=== PATIENT | male | born 1955 | race Caucasian/White ===

== ENCOUNTER 2016-06-04 16:06 | Observation (INO) ==
[2016-06-04] MEDS ORDERED: Nitroglycerin 1 INCH/GM PACKET TP ONE (16:21)
[2016-06-04 16:34] LABS: Basophils # 0.1 K/mcL (0.0-0.2); Basophils % 0.6 %; Eosinophils # 0.7 K/mcL (0.0-0.6); Hematocrit 54.7 % (37.5-50.1); Hemoglobin 19.3 g/dL (12.9-16.9); Immature Granulocytes % 0.6 % (0-4); Lymphocytes # 6.4 K/mcL (0.6-4.6); Lymphocytes % 44.7 %; Mean Corpuscular HGB Conc 35.3 g/dL (31.6-35.5); Mean Corpuscular Hemoglobin 30.1 pg (28.0-33.3); Mean Corpuscular Volume 85.2 fL (83.0-100.0); Mean Platelet Volume 10.3 fL (9.4-12.4); Monocytes % 7.2 %; Platelet Count 177 K/mcL (140-400); Red Blood Count 6.42 M/mcL (4.19-5.50); Red Cell Distribution Width 13.2 % (11.5-14.5); Segmented Neutrophils % 41.9 %
[2016-06-04 16:39] LABS: INR 1.2; Prothrombin Time 12.8 Seconds (9.4-12.1)
[2016-06-04 16:41] LABS: Activated Partial Thrombo Time 35.4 Seconds (26.0-36.0)
[2016-06-04 16:47] LABS: BUN/Creatinine Ratio 14 (6-26); Blood Urea Nitrogen 16 mg/dL (8-26); Calcium 9.7 mg/dL (8.6-10.8); Carbon Dioxide 23 mEq/L (19-29); Chloride 104 mEq/L (98-109); Glucose 97 mg/dL (70-99); Osmolality,Calculated 291 (280-300); Potassium 3.8 mEq/L (3.5-4.5); Sodium 140 mEq/L (136-145); eGFR For African Americans > 60 (> 60); eGFR For Non-African Americans > 60 (> 60)
[2016-06-04] MEDS ORDERED: *HR* Enoxaparin 120 MG/0.8 ML SYRINGE SQ STA (17:40)
[2016-06-04] MEDS ORDERED: Acetaminophen 325 MG TABLET PO PRN (20:48)
[2016-06-04] MEDS ORDERED: Naloxone 0.4 MG/ML INJ IVP PRN (20:48)
[2016-06-04] MEDS ORDERED: *HR* Morphine 2 MG/ML SYRINGE IVP PRN (20:48)
[2016-06-04] MEDS ORDERED: Nitroglycerin 0.4 MG TAB.SUBL SL PRN (20:57)
--- NOTE | 2016-06-04 20:59 | Internal Med History&Physical ---
Date of Encounter: 06/04/16 Time of Encounter: 20:59 Assessment and Plan (1) Unstable angina Current visit: Yes Status: Acute Suspect unstable angina / ACS. Treat with aspirin, enoxaparin, continue beta elli. Monitor on telemetry. Check lipid panel. Cardiology consultation. (2) Hypertension Current visit: Yes Status: Chronic Continue Metoprolol Qualifiers: Hypertension type: essential hypertension Qualified Code(s): I10 - Essential (primary) hypertension (3) Polycythemia Current visit: Yes Status: Acute Possibly due to secondary causes like ROWDY/hypoxemia versus polycythemia rubra vera. Pt is not a smoker. Repeat H&H. Check for serum erythropoitin and JAK2 mutation. 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 Consult scalder for further advice. (5) Leucocytosis Current visit: Yes Status: Acute Will repeat CBC for WBC count. No obvious source of infection. Qualifiers: Leukocytosis type: unspecified Qualified Code(s): D72.829 - Elevated white blood cell count, unspecified Internal Medicine - H&P: HPI Chief complaint: Chest pains Admitted From: Home Plans for Post Hospital Care: Home History of present illness: Mr. Gardner is a 60 year old male with PMH significant for HTN, h/o palpitations and EKG abnormalities noted about 20 years ago (apparently pt was told it was inherited), hiatus hernia and GERD - presents to the ER, with several days h/o intermittent burning sensation (thought he had burning in the breathing tubes), in the upper chest. Initially was noted after meal. Subsequently he had become more frequent and severe burning sensation with exertion, but also had symptoms at rest. Severity, 8/10. Pain last for upto 5 minutes. He had some numbness in the left upper extremity and neck, associated with chest pain. Also thinks he may have some palpitations. Denies shortness of breath, cough, fever, chills, nausea, vomiting, sweating. He denies abdominal pain, urinary or bowel symptoms. He was recently at his PCP's office who was planning to refer him to scalder, and advised him to go to the ER, if symptoms return. He was evaluated in the ER and was given aspirin, enoxaparin, nitro paste and admitted to the hospitalist service for further w/u. Pt was pain free at the time of my evaluation. Past Med Surg Social Fam HX - Past Medical History Medical history: hypertension, other Psychiatric history: no psych history - Social History Smoking Status: Never smoker Smokeless Tobacco Status: No Alcohol use: none Drug use: none - Family History Mother Living Status: Cause of : alheimzers Hx Family Cardiac Disorders: Yes (Angina) Father Living Status: Cause of : head injury/ brain aneurysm Internal Medicine - H&P: Meds Metoprolol [Lopressor] 50 mg PO BID 06/04/16 [History] Allergies No Known Allergies Allergy (Verified 06/04/16 16:29) All Systems PM: A 10-system review of systems was performed and is negative for pertinent findings except as documented above in the HPI. - Constitutional Vitals: Temp Pulse Resp BP Pulse Ox 98 F 73 16 120/69 93 L 06/04/16 19:11 06/04/16 19:11 06/04/16 19:11 06/04/16 19:12 06/04/16 19:11 Exam: General: Not in acute distress at the time of my evaluation HEENT: No conjunctival palor or scleral incterus Neck: No obvious swellings Lungs: Clear to auscultation Cardiac: Irregular rhythm. No significant murmurs. No carotid bruit Abdomen: Obese, non tender. Bowel sounds present Neurological: Alert and oriented x 3. No gross neurological deficits Psychiatric: Not aggressive or agitated. No delusions or hallucinations Muskuloskeletal: B/L trace LE leg edema noted. Skin: No generalized rash Internal Med - H&P Results - Labs CBC & Chem 7: 06/04/16 16:15 06/04/16 16:15 - Impressions ITS Impressions Chest X-Ray 06/04/16 16:21 IMPRESSION: No acute cardiopulmonary process. D/ / 06/04/2016 17:03:18 Joe Russo MD / Shona Daniel Interpreting Provider: Joe Russo MD - VTE Reasons for not Prescribing Prophylaxis: Not indicated-Anticoagulated or INR therapeutic
--- NOTE | 2016-06-04 22:02 | Emergency Department Note ---
Disposition Clinical Impression: Chest pain Qualifiers: Chest pain type: unspecified Qualified Code(s): R07.9 - Chest pain, unspecified Disposition: Admitted As Inpatient Condition: Good General Adult HPI - General Chief complaint: ED Chest Pain Stated complaint: Chest Pain Time Seen by Provider: 06/04/16 16:11 Source: patient, family Limitations: no limitations Nursing Notes Reviewed: Yes Vital Signs Reviewed: Yes - History of Present Illness HPI Narrative: 60-year-old male who presents with concern for chest pain. His pain has been intermittent over the course of 3 days. He admits the pain worsens with ambulation and subsides with rest. He does not history of hiatal hernia and has some nonspecific epigastric complaints. He has had no vomiting, diarrhea, hematemesis, hematochezia. He denies fever, chills, night sweats. He has no history of having cardiac catheterization or stress testing done Pain Scale: 0 - Related Data Home Medications Medication Instructions Recorded Confirmed Metoprolol [Lopressor] 50 mg PO BID 06/04/16 06/04/16 Previous Rx's Medication Instructions Recorded Aspirin 81 mg PO DAILY #30 tab.chew 06/06/16 Atorvastatin [Lipitor] 80 mg PO HS #60 tablet 06/06/16 Clopidogrel [Plavix] 75 mg PO DAILY #30 tablet 06/06/16 Nitroglycerin 0.4 mg SL Q5MIN PRN #7 tab.subl 06/06/16 Allergies Allergy/AdvReac Type Severity Reaction Status Date / Time No Known Allergies Allergy Verified 06/04/16 16:29 All systems ED: reviewed and negative except as stated. Past Medical History - Past Medical History Medical history: Reports: hypertension, other Surgical history: Reports: other Psychiatric history: Reports: no psych history - Social History Smoking Status: Never smoker Smokeless Tobacco Status: No Alcohol use: Reports: none Drug use: Reports: none Physical Exam No acute distress TMs are clear bilaterally, extraocular muscle movements are normal, no scleral icterus noted Cardio vascular exam shows regular rate and rhythm no murmur rub or gallop Pulmonary exam shows no overt respiratory distress, tachypnea, rales, rhonchi, wheezing Abdominal exam shows a soft nontender abdomen with no signs of peritonitis Extremities show +2 peripheral pulses 4 she remedies. Neurologic exam is without neurological deficit - General Limitations: no limitations General appearance: alert Course Vital Signs Temperature 98.9 F 06/04/16 16:10 Pulse Rate 80 06/04/16 16:10 Respiratory Rate 16 06/04/16 16:10 Blood Pressure 151/115 06/04/16 16:10 O2 Sat by Pulse Oximetry 96 06/04/16 16:10 Temperature 97.8 F 06/06/16 15:20 Pulse Rate 72 06/06/16 15:20 Respiratory Rate 14 06/06/16 15:20 Blood Pressure 157/90 06/06/16 15:20 O2 Sat by Pulse Oximetry 97 06/06/16 15:20 Oxygen Delivery Oxygen Delivery Room Air Medical Decision Making - MDM Narrative Medical decision making narrative: This is a male patient presents with typical chest pain with concern for angina versus unstable angina and possible ACS. Aspirin was administered by the patient prior to arrival in the emergency department. Nitroglycerin paste applied as a patient was pain-free on arrival however his pain does return with ambulation. His cardiac biomarkers were detectable however within normal limits and as such I do believe these could be early elevation and he was anticoagulated with Lovenox given his normal creatinine. I discussed this choice with the on-call hospitalist who agreed. We will admit to telemetry, cardiac consultation, returning of cardiac biomarkers. Admitted in stable condition. EKG nondiagnostic at time of admission. - Medical Records Medical records reviewed: Yes I reviewed the patient's medical records. - Lab Data Lab results reviewed: Yes I reviewed the patient's lab results. Result diagrams: 06/06/16 05:06 06/06/16 05:06 Lab Results 06/04/16 06/04/16 06/04/16 Range/Units 16:15 16:15 16:15 WBC 14.2 H (4.3-11.1) K/mcL RBC 6.42 H (4.19-5.50) M/mcL Hgb 19.3 H (12.9-16.9) g/dL Hct 54.7 H (37.5-50.1) % MCV 85.2 (83.0-100.0) fL MCH 30.1 (28.0-33.3) pg MCHC 35.3 (31.6-35.5) g/dL RDW 13.2 (11.5-14.5) % Plt Count 177 (140-400) K/mcL MPV 10.3 (9.4-12.4) fL Immature Gran % 0.6 (0-4) % Seg Neutrophils % 41.9 % Lymphocytes % 44.7 % Monocytes % 7.2 % Eosinophils % 5.0 % Basophils % 0.6 % Neutrophils # 6.0 (1.6-8.9) K/mcL Lymphocytes # 6.4 H (0.6-4.6) K/mcL Monocytes # 1.0 (0.0-1.3) K/mcL Eosinophils # 0.7 H (0.0-0.6) K/mcL Basophils # 0.1 (0.0-0.2) K/mcL PT 12.8 H (9.4-12.1) Seconds INR 1.2 APTT 35.4 (26.0-36.0) Seconds Sodium (136-145) mEq/L Potassium (3.5-4.5) mEq/L Chloride (98-109) mEq/L Carbon Dioxide (19-29) mEq/L BUN (8-26) mg/dL Creatinine (0.72-1.25) mg/dL Est GFR ( Amer) (> 60) Est GFR (Non-Af Amer) (> 60) BUN/Creatinine Ratio (6-26) Glucose (70-99) mg/dL Calculated Osmolality (280-300) Calcium (8.6-10.8) mg/dL Troponin I (0-0.03) ng/mL B-Natriuretic Peptide 39 (0-100) pg/mL 06/04/16 06/04/16 Range/Units 16:15 16:15 WBC (4.3-11.1) K/mcL RBC (4.19-5.50) M/mcL Hgb (12.9-16.9) g/dL Hct (37.5-50.1) % MCV (83.0-100.0) fL MCH (28.0-33.3) pg MCHC (31.6-35.5) g/dL RDW (11.5-14.5) % Plt Count (140-400) K/mcL MPV (9.4-12.4) fL Immature Gran % (0-4) % Seg Neutrophils % % Lymphocytes % % Monocytes % % Eosinophils % % Basophils % % Neutrophils # (1.6-8.9) K/mcL Lymphocytes # (0.6-4.6) K/mcL Monocytes # (0.0-1.3) K/mcL Eosinophils # (0.0-0.6) K/mcL Basophils # (0.0-0.2) K/mcL PT (9.4-12.1) Seconds INR APTT (26.0-36.0) Seconds Sodium 140 (136-145) mEq/L Potassium 3.8 (3.5-4.5) mEq/L Chloride 104 (98-109) mEq/L Carbon Dioxide 23 (19-29) mEq/L BUN 16 (8-26) mg/dL Creatinine 1.14 (0.72-1.25) mg/dL Est GFR ( Amer) > 60 (> 60) Est GFR (Non-Af Amer) > 60 (> 60) BUN/Creatinine Ratio 14 (6-26) Glucose 97 (70-99) mg/dL Calculated Osmolality 291 (280-300) Calcium 9.7 (8.6-10.8) mg/dL Troponin I 0.03 (0-0.03) ng/mL B-Natriuretic Peptide (0-100) pg/mL - Radiology Data Radiology results reviewed: Yes I reviewed the patient's radiology results. - EKG Data EKG #1 EKG attestation: Yes I reviewed and interpreted this EKG. EKG results narrative: Normal sinus rhythm, normal axis, normal intervals, no signs of acute ST segment changes and occasional premature ventricular contractions
[2016-06-05 05:56] LABS: Chol/HDL Ratio 6.7 (0-4.9)
[2016-06-05] MEDS ORDERED: *HR* Enoxaparin 120 MG/0.8 ML SYRINGE SQ SCH (07:00)
[2016-06-05] MEDS ORDERED: Aspirin 325 MG TABLET PO SCH (09:00)
[2016-06-05 09:39] LABS: Basophils # 0.1 K/mcL (0.0-0.2); Basophils % 0.7 %; Eosinophils # 0.5 K/mcL (0.0-0.6); Eosinophils % 4.1 %; Hematocrit 53.8 % (37.5-50.1); Hemoglobin 18.4 g/dL (12.9-16.9); Immature Granulocytes % 0.5 % (0-4); Immature Platelets 6.6 % (1.1-6.1); Lymphocytes # 4.3 K/mcL (0.6-4.6); Lymphocytes % 37.9 %; Mean Corpuscular HGB Conc 34.2 g/dL (31.6-35.5); Mean Corpuscular Hemoglobin 29.6 pg (28.0-33.3); Mean Corpuscular Volume 86.5 fL (83.0-100.0); Mean Platelet Volume 10.4 fL (9.4-12.4); Monocytes # 0.9 K/mcL (0.0-1.3); Monocytes % 8.3 %; Neutrophils # 5.5 K/mcL (1.6-8.9); Platelet Count 174 K/mcL (140-400); Red Blood Count 6.22 M/mcL (4.19-5.50); Red Cell Distribution Width 13.1 % (11.5-14.5); Segmented Neutrophils % 48.5 %
[2016-06-05 09:54] LABS: BUN/Creatinine Ratio 14 (6-26); Blood Urea Nitrogen 16 mg/dL (8-26); Calcium 9.2 mg/dL (8.6-10.8); Carbon Dioxide 26 mEq/L (19-29); Chloride 106 mEq/L (98-109); Glucose 87 mg/dL (70-99); Magnesium 2.2 mg/dL (1.6-2.6); Osmolality,Calculated 297 (280-300); Potassium 4.1 mEq/L (3.5-4.5); Sodium 143 mEq/L (136-145); eGFR For African Americans > 60 (> 60); eGFR For Non-African Americans > 60 (> 60)
[2016-06-05] MEDS ORDERED: Regadenoson 0.4 MG/5 ML SYRINGE IVP ONE (11:56)
--- NOTE | 2016-06-05 14:49 | Cardiology Consult Note ---
Date of Encounter: 06/05/16 Time of Encounter: 14:46 Assessment and Plan (1) Abnormal stress test Current Visit: Yes Status: Acute Typical chest pain symptoms. Troponin negative x 3. Intermittent chest pain over the last year. Recommended for stres in the past but preferred medical management. Stress test abnormal with defect in the anterior/septal territory suggestive of ischemia, also positive for TID. He also had significant hypotension with Lexiscan. [facility] Indications, risks, benefits, and alternatives discussed. Recommend aspirin, statin,and beta-elli. (2) Unstable angina Current Visit: Yes Status: Acute Typical chest pain symptoms. Discussion w patient/family: The assessment and plan as outlined above was discussed with the patient and/or family members who expressed understanding and agreement. All questions were answered. Thank you for involving us in the care of your patient. Please call with any questions. History of Present Illness Consult date: 06/05/16 Requesting physician: Sarita Mercedes Consult reason: Abnormal stress Chief complaint: Chest pain History of present illness: Mr. Gardner is a 60 year old male with a history of SVT and hypertension. He presents with intermittent chest pain over the last several weeks. He was on vacation when he noted midsternal chest discomfort with walking. His pain improved with rest. His chest pain went away for a while. Yesterday his chest pain returned and was associated with left arm and neck tingling. He denies any shortness of breath. Admits to frequent palpitations. He denies previous history of CAD. He has never undergone left heart catheterization. He underwent a stress test today that shows significant defect in the LAD territory. Past Med Surg Social Fam HX - Past Medical History Medical history: hypertension, SVT (Short runs seen on previous holter.), other Psychiatric history: no psych history - Past Surgical History Surgical History: other - Social History Smoking Status: Never smoker Smokeless Tobacco Status: No Alcohol use: none Drug use: none - Family History Mother Living Status: Cause of : alheimzers Hx Family Cardiac Disorders: Yes (Angina) Father Living Status: Cause of : head injury/ brain aneurysm Medications and Allergies Metoprolol [Lopressor] 50 mg PO BID 06/04/16 [History] Allergies No Known Allergies Allergy (Verified 06/04/16 16:29) All Systems Review: A 10-system review of systems was performed and is negative for pertinent findings except as documented above in the HPI. Physical Examination Vital Signs, Last 4 Hours Temp Pulse Resp BP Pulse Ox 06/05/16 11:04 98.6 F 79 15 148/89 93 L General: Conversant, No Apparent Distress HEENT: Atraumatic, Normocephaly, Mucus Membranes Moist Neck: No JVD, Normal carotid pulses Cardiac: Reg Rate and Rhythm, Normal S1 and S2, No Murmur Lungs: Normal Breath Sounds, No Wheeze, Rales, Rhonchi Neuro: Alert and responsive, No focal deficits noted Abdomen: Soft, Non-Tender Skin: No rashes noted on visualized skin Musculoskeletal: No Chest Wall Tenderness Extremities: No Clubbing, No Cyanosis, No Edema, Normal Pulses Results 06/05/16 09:14 06/05/16 09:14 Lab Results 06/04/16 06/05/16 06/05/16 21:46 03:48 09:14 WBC Hgb Hct Plt Count Sodium Potassium Chloride Carbon Dioxide BUN Creatinine Glucose Calcium Magnesium Troponin I 0.03 0.03 0.02 06/05/16 06/05/16 09:14 09:14 WBC 11.4 H Hgb 18.4 H Hct 53.8 H Plt Count 174 Sodium 143 Potassium 4.1 Chloride 106 Carbon Dioxide 26 BUN 16 Creatinine 1.15 Glucose 87 Calcium 9.2 Magnesium 2.2 Troponin I - Imaging and Cardiology Stress Test: report reviewed - EKG Interpretation EKG results cardiology: personally reviewed (Sr with frequent PAC.) Consult Discharge Plan - Plan Referrals: Elizabeth Ho, [employer] [Primary Care Provider] -
--- NOTE | 2016-06-05 14:56 | Nuclear Medicine Stress Report ---
Regadenoson Nuclear Stress Name: Saurav Gardner Date of Study: 06/05/2016 Date: 1955 Ht: 71.0 in Medical Record#: [id number] Age: 60 Wt: 240.0 lb Gender: Male Order #: [id number] Location: [facility] Room: [facility] Supervising Provider: Curtis Mosley CNP Reading Physician: Zoltan Chambers MD, [facility] WITH [facility] Ordering Physician: Sarita Mercedes MD Primary Care Physician: Elizabeth Ho CNP Stress Technologist: Presley Bhatia GEODETIC TECHNICIAN, [facility] Inspector Boiler: Ubaldo Keane Indications: Chest Pain Impression: Frequent PACs noted prior to exam beginning, during stress, and in recovery. Non-specific ST \T\ T wave changes were noted with regadenoson. No ECG changes diagnostic of ischemia. The patient demonstrated a hypotensive blood pressure response to regadenoson (BP 60/40). Patient was given 500 mL of IV fluids. BP increased to 90/58. Gated LVEF = 61%. There is a medium-large sized, moderate-severe intensity, reversible perfusion defect involving the mid-apical anterior wall, mid anteroseptum, apical septum, and apex. Findings are consistent with moderate-severe LAD territory ischemia. There is mild transient ischemic dilatation, which can be seen in the setting of 3-vessel coronary artery disease. Abnormal findings were discussed with the ordering physician. History: Hypertension Stress Test Summary: Stress Test Type: Pharmacologic Regadenoson 0.4mg/5ml given IV Baseline Information: Initial Heart Rate: 82 Blood Pressure: 122/82 Stress Information: Test Terminated Due to (primary): As per protocol Maximum Blood Pressure: 104/70 Maximum Heart Rate: 113 Percent Maximum Heart Rate Achieved: 71 Double Product: 11334 Symptoms: Shortness of breath, Dizziness Nuclear Summary: SPECT myocardial perfusion imaging using Tc99m Sestamibi given intravenously was performed at rest and following cardiac stress testing. The resting images were obtained following initial dose of 10.7 mCi. Following stress an additional dose of 32.2 mCi was given at peak exercise or 30 seconds post regadenoson infusion. Medication Given: Time Medication Dose Units Route 12:45 NaCl 0.9% 500 ml Intravenous Findings: Stress Note * Resting ECG demonstrated sinus rhythm with short MT interval, PACs, non-specific ST-T wave abnormality. * Frequent PACs noted prior to exam beginning, during stress, and in recovery. * Patient had no chest pain during stress. * Non-specific ST \T\ T wave changes were noted with regadenoson. No ECG changes diagnostic of ischemia. Hemodynamic responses * The patient demonstrated a hypotensive blood pressure response to regadenoson (BP 60/40). Patient was given 500 mL of IV fluids. BP increased to 90/58. Study Quality * Study quality is good. Gated EF % * Gated LVEF = 61%. Left Ventricle * The left ventricle is not dilated. * Normal Segmental Perfusion in rest. * There is a medium-large sized, moderate-severe intensity, reversible perfusion defect involving the mid-apical anterior wall, mid anteroseptum, apical septum, and apex. * Findings are consistent with moderate-severe LAD territory ischemia. TID * There is mild transient ischemic dilatation, which can be seen in the setting of 3-vessel coronary artery disease. Updated by Zoltan Chambers MD, FACC on 06/05/2016 2:49:50 PM electronically signed on 06/05/2016 2:51:03 PM with status of Final
--- NOTE | 2016-06-05 15:30 | Pre-Sedation Evaluation ---
Pre-sedation evaluation - Pre-sedation checklist Date of procedure: 06/05/16 Procedure: [facility] Recent Vitals: Last Vital Signs Temp 98.6 F 06/05/16 11:04 Pulse 79 06/05/16 11:04 Resp 15 06/05/16 11:04 BP 148/89 06/05/16 11:04 Pulse Ox 93 L 06/05/16 11:04 H&P (including ROS) documented in medical record: Yes Previous reaction to sedatives/anesthetics: No Dietary Status: NPO after Midnight Airway Assessment: Patient can open mouth completely, TMJ function normal, Micrognathia (under-bite, receding chin) absent, Neck with adequate range of motion Dentition: No loose teeth or bridges Possible difficult airway: No ASA Classification *see protocol: CLASS II-Mild systemic disease Plan of Care: Pt appropriate candidate for procedure/moderate/conscious sedation , Risks/benefits of procedure/sedation discussed w/ patient/family
[2016-06-05] MEDS ORDERED: *HR* FentaNYL (PF) 100 MCG/2 ML VIAL ONE (15:32)
[2016-06-05] MEDS ORDERED: Heparin 1,000 UNITS/500 mL NS 500 ML ONE (15:33)
[2016-06-05] MEDS ORDERED: Nitroglycerin 1,000 MCG/10 ML VIAL IV ONE (15:33)
[2016-06-05] MEDS ORDERED: *HR* Midazolam HCl 5 MG/5 ML VIAL IVP ONE (15:33)
[2016-06-05] MEDS ORDERED: 0.9 % Sodium Chloride 1,000 ML ONE (15:33)
[2016-06-05] MEDS ORDERED: *HR* Heparin 10,000 UNIT/10 ML VIAL ONE (15:33)
[2016-06-05] MEDS ORDERED: *HR* Bivalirudin 250 MG VIAL IVC ONE ×2 (16:20→16:43)
[2016-06-05] MEDS ORDERED: *HR* Ticagrelor 90 MG TABLET ONE (16:46)
--- NOTE | 2016-06-05 17:09 | Invasive Diagnostic Lab Proc ---
Name: Saurav Gardner Date of Study: 06/05/2016 Date: 1955 Ht: 70.9in Medical Record#: [id number] Age: 60 Wt: 240.30lb Gender: Male BSA: 2.28 Order #: [id number] BMI: 33.64 Physicians Procedure Physician: Angelita Mendez MD, FACC Referring MD: Elizabeth Ho CNP Referring MD: Staff Name Position Time In Johnathan Hough RN Monitor 04:03 PM Lotus Lu RT (R) Scrub 04:03 PM Mali Plata RN Devops Solutions Architect 04:03 PM Indications Indication Abnormal Test - Stress Procedures Performed Procedure L HRT ARTERY/VENTRICLE ANGIO PRQ CARD AUGUSTA STENT W/ANGIO 1 VSL PRQ CARD BM STENT W/ANGIO 1 VSL Pre-Procedure Checklist Informed consent is complete signed and on chart. H\\T\\P is on chart. ID band is on and ID verified with patient. Patient NPO for procedure The procedure was described for the patient and questions were answered. Blood Pressure: 148/89 ECG is on chart. Rhythm: NSR Plan of Care Patient will tolerate the procedure without complications. Adequate level of comfort will be maintained. Hemodynamics will remain stable Patient will recover from procedure without complications. Respiratory function will be maintained. Cardiac rhythm will remain stable. Patient temperature will be maintained. Patient and/or family have verbalized understanding of the procedure. Patient Education Chief Complaint/Reason for Test: Cardiac Cath Developmental Category: Adult (18-64 years) Developmentally Appropriate for Age: Yes Learning Barriers: None Education Needs: Procedure Education Method: Verbal Information Taught: Cardiac Cath Educational Evaluation: Able to repeat information Intravenous Access Time IV Size Location DC'd Fluid/Drip Rate Units RN 03:39 PM 18g 1 05/12" Patent On Arrival Lt Antecubital 0.9NaCl 25 ml/hr Johnathan Hough RN Allergies No Known Allergies Vital Signs Time BP (mmHg) HR (bpm) O2 Sat. RR (bpm) LOC 03:37 PM 148 / 89 79 93 % 15 5 = Fully awake and oriented or at pre-proc level 04:05 PM / % 5 = Fully awake and oriented or at pre-proc level 04:05 PM / % 5 = Fully awake and oriented or at pre-proc level 04:20 PM / % 5 = Fully awake and oriented or at pre-proc level 04:35 PM / % 5 = Fully awake and oriented or at pre-proc level 04:01 PM 164 / 116 86 100 % 1 04:06 PM 143 / 97 69 98 % 13 04:11 PM 142 / 98 68 95 % 23 04:16 PM 141 / 91 87 95 % 21 04:21 PM 120 / 93 80 96 % 22 04:26 PM 132 / 85 70 96 % 21 04:31 PM 133 / 86 65 96 % 20 04:37 PM 137 / 89 71 97 % 14 04:42 PM 147 / 91 63 98 % 20 04:46 PM 141 / 86 72 98 % 15 04:51 PM 128 / 85 72 98 % Procedural Medications Time Medication Dose Units Method Given By 04:04 PM Oxygen 2 L/min nasal cannula aMli Plata RN 04:00 PM Versed 2 mg Intravenous Mali Plata RN 04:00 PM Fentanyl 50 mcg Intravenous Mali Plata RN 04:09 PM Versed 1 mg Intravenous Mali Plata RN 04:09 PM Fentanyl 25 mcg Intravenous Mali Plata RN 04:10 PM Lidocaine 2% 15 ml Subcutaneous Angelita Mendez MD, FACC 04:16 PM Angiomax 0.75mg/kg bolus: 16.5 ml Intravenous Mali Plata RN 04:17 PM Angiomax 1.75mg/kg/hr: 38.5 ml/hr Intravenous Mali Plata RN 04:25 PM Nitroglycerin 200 mcg Intracoronary Angelita Mendez MD, FACC 04:26 PM Nitroglycerin 200 mcg Intracoronary Angelita Mendez MD, FACC 04:41 PM Nitroglycerin 200 mcg Intracoronary Angelita Mendez MD, FACC 04:48 PM Reopro Bolus: 13.6 ml Intravenous Mali Plata RN 04:59 PM Brilinta 180 mg Orally Mali Plata RN ASA Classification: CLASS II- Mild systemic disease (i.e. well-controlled diabetes, hypertension, asthma, cigarette smoking) Anjali Score Preprocedure Postprocedure Activity 2- Moves 4 extremities sustained head lift Activity Circulation 2- SBP +/= 20 points of pre-anesthetic level Circulation Consciousness 2- Awake and alert oriented x 3 Consciousness O2 Saturation 2- Able to maintain O2 satruation of 92% on room air O2 Saturation Respiratory 2- Able to deep breathe and cough well Respiratory Total Score 10 Total Score Contrast Agent: Isovue Diagnostic Contrast: 181 ml Total Contrast: 181 ml Fluoro Dose: 1302 mGy Procedure Log Time Note Enter By 03:36 PM CathStat 04:00 PM Pt arrived to director of cath lab 2 at 16:00 [facility] 04:00 PM Augusto and radha [facility] 04:00 PM Sign in performed according to hospital policy. [facility] 04:00 PM Procedure start 16:00 csmith 04:00 PM Case Start 04:00 PM Vitals capture started with the following parameters, Patient=Adult, Interval=5 min, Initial Wquwgeul=805 mmHg, Deflation Rate=5 mmHg, Cuff placed on Right Arm 04:01 PM HR=86 bpm, KVDW=149/116 mmhg, PkC9=342.0 %, Resp=1 B/min, Comment=nsr 04:03 PM Johnathan Hough RN Position: Monitor Time in: 16:03 [facility] 04:03 PM Lotus Lu (R) Position: Scrub Time in: 16:03 [facility] 04:04 PM Mali Plata RN Position: Devops Solutions Architect Time in: 16:03 [facility] 04:04 PM Patient charges- Angio tray pack, Navilyst 3mm J, Pulse Oximetry and ACIST tubing and transducer csmith 04:04 PM Hair removed from procedure site in holding area using clippers. Bilateral groin prepped with Chloraprep by Lotus Lu RT (R) then patient draped. Skin intact. [facility] 04:04 PM Time: 16:04 Oxygen on at 2 L/min per nasal cannula by Mali Plata RN [facility] 04:04 PM Time: 16:00 Versed 2 mg Intravenous Given by Mali Plata RN [facility] 04:04 PM Time: 16:00 Fentanyl 50 mcg Intravenous Given by Mali Plata RN [facility] 04:05 PM Time: 16:05 Patient comfortable and pain free: Yes [facility] 04:05 PM Time: 16:05LOC: 5 = Fully awake and oriented or at pre-proc level [facility] 04:06 PM HR=69 bpm, ZMWO=751/97 mmhg, SpO2=98.0 %, Resp=13 B/min, Comment=nsr 04:07 PM ASA Class CLASS II- Mild systemic disease (i.e. well-controlled diabetes, hypertension, asthma, cigarette smoking) [facility] 04:08 PM Pressure channel 1 zeroed. 04:09 PM Time out performed according to hospital policy csmith 04:09 PM Time: 16:09 Versed 1 mg Intravenous Given by Mali Plata [facility] 04:09 PM Time: 16:09 Fentanyl 25 mcg Intravenous Given by Mali Plata RN csmith 04:10 PM Pressure channel 1 zeroed. 04:10 PM Time: 16:10 15 ml Lidocaine 2% to right groin Subcutaneous Given by Angelita Mendez MD, [facility] csmith 04:11 PM HR=68 bpm, XNXP=638/98 mmhg, SpO2=95.0 %, Resp=23 B/min, Comment=nsr w/pacs 04:12 PM Access obtained by percutaneous puncture. 5Fr 10cm Terumo [place] sheath placed in right Femoral artery. [id number] csmith 04:12 PM 5Fr FL 4 catheter inserted over the wire [facility] csmith 04:12 PM 0.035 145cm Navilyst 3mmJ wire [id number] csmith 04:12 PM Recorded Pressure: Ao, HR=67, Condition=Condition 1 (Aorta) Ao 119/72/97 04:12 PM LCA angiography performed in multiple views. csmith 04:13 PM Lesion found in Mid LAD. Pre Stenosis: 99 Pre ANUJ Flow: 3: Complete and Brisk Flow/Perfusion csmith 04:14 PM Catheter removed csmith 04:14 PM 5Fr FR 4 catheter inserted over the wire [facility] csmith 04:14 PM bmc notified of need for 2N bed csmith 04:15 PM PCI Status Urgent csmith 04:15 PM Inflation device was opened. csmith 04:15 PM RCA angiography performed in multiple views. csmith 04:16 PM Sheath exchanged for a 6 Fr 11 cm Cordis Monie sheath [id number] csmith 04:16 PM HR=87 bpm, JMEY=407/91 mmhg, SpO2=95.0 %, Resp=21 B/min, Comment=nsr w/pacs 04:17 PM Time: 16:16 Angiomax 0.75mg/kg bolus: 16.5 ml Intravenous Given by Mali Plata RN IVP csmith 04:17 PM Time: 16:17 Angiomax 1.75mg/kg/hr: 38.5 ml/hr Intravenous Given by Mali Plata RN [place] pump csmith 04:17 PM 6Fr XB LAD 3.5 [place] Bright-Tip guide catheter was used to cannulate the PCI vessel successfully. reused? No csmith 04:17 PM .014 Prowater 180cm guide wire across target lesion- successful. reused? No csmith 04:19 PM 2.5 mm x 15 mm Emerge Monorail balloon across target lesion- successful. reused? No csmith 04:20 PM Time: 16:05 Patient comfortable and pain free: Yes csmith 04:20 PM Time: 16:05LOC: 5 = Fully awake and oriented or at pre-proc level csmith 04:21 PM Balloon inflated @ 10 chante for 20 seconds csmith 04:21 PM Recorded Pressure: Ao, HR=69, Condition=Condition 1 (Aorta) Ao 104/66/85 04:21 PM HR=80 bpm, FAPA=774/93 mmhg, SpO2=96.0 %, Resp=22 B/min, Comment=nsr w/pacs 04:23 PM Balloon catheter removed intact. csmith 04:24 PM 2.75mm x 32mm Synergy bioabsorbable stent across target lesion- successful Lot #[id number] csmith 04:24 PM Stent deployed @ 14 chante for 30 seconds csmith 04:25 PM stent delivery system removed csmith 04:26 PM Time: 16:25 Nitroglycerin 200 mcg Intracoronary Given by Angelita Mendez MD, [facility] csmith 04:26 PM HR=70 bpm, NZHZ=134/85 mmhg, SpO2=96.0 %, Resp=21 B/min, Comment=nsr w/pacs 04:26 PM Time: 16:26 Nitroglycerin 200 mcg Intracoronary Given by Angelita Mendez MD, [facility] csmith 04:27 PM wire removed csmith 04:27 PM catheter removed csmith 04:31 PM 6Fr JR 4 [place] Bright-Tip guide catheter was used to cannulate the PCI vessel successfully. reused? No csmith 04:31 PM .014 Prowater 180cm guide wire across target lesion- successful. reused? No csmith 04:31 PM HR=65 bpm, ORUJ=933/86 mmhg, SpO2=96.0 %, Resp=20 B/min, Comment=nsr w/pacs 04:31 PM 1.5 mm x 12 mm Mini Trek Rx balloon across target lesion- successful. reused? No csmith 04:33 PM PCI lesion in Mid RCA. Pre Stenosis: 99 Pre ANUJ Flow: 3: Complete and Brisk Flow/Perfusion csmith 04:34 PM Balloon inflated @ 10 chante for 22 seconds csmith 04:35 PM Time: 16:20LOC: 5 = Fully awake and oriented or at pre-proc level csmith 04:36 PM Time: 16:20 Patient comfortable and pain free: Yes csmith 04:36 PM Balloon catheter removed intact. csmith 04:36 PM 2.0mm x 18mm Multi-Link Mini Vision RX Stent bare metal stent across target lesion- successful Lot #[id number] csmith 04:37 PM HR=71 bpm, JIPI=252/89 mmhg, SpO2=97.0 %, Resp=14 B/min, Comment=nsr w/pacs 04:39 PM Stent deployed @ 10 chante for 30 seconds csmith 04:40 PM Stent balloon reinflated @ 12 chante for 22 seconds csmith 04:41 PM Stent delivery system removed intact. csmith 04:41 PM Time: 16:41 Nitroglycerin 200 mcg Intracoronary Given by Angelita Mendez MD, FACC csmith 04:42 PM HR=63 bpm, YOGA=347/91 mmhg, SpO2=98.0 %, Resp=20 B/min, Comment=nsr w/pacs 04:42 PM wire and catheter removed csmith 04:43 PM 5Fr Pigtail catheter inserted over the wire DNC csmith 04:44 PM Pressure channel 1 zero failed. 04:44 PM Pressure channel 1 zeroed. 04:44 PM Recorded Pressure: LV, HR=75, Condition=Condition 1 (Left Ventricle) LV 99/7/12 04:44 PM Recorded Pressure: LV, Ao, HR=77, Condition=Condition 1 (Left Ventricle) LV 103/20/29, (Aorta) Ao 115/81/98 04:44 PM Catheter selectively placed in left ventricle csmith 04:45 PM Bolus angiogram of left Ventricle complete: 8 ml/sec for a total of 24 mls csmith 04:45 PM Bolus angiogram of right Femoral complete: 4 ml/sec for a total of 7 mls csmith 04:45 PM Procedure completed at 16:45 csmith 04:46 PM Sign out completed: Radiation Dose 1302 mGy Fluoro Time: 10.4 Isovue 370 - 200ml contrast 181 ml given by Angelita Mendez MD, [facility]. Complications: NoneCardiac Rehab Consult needed: YesConfirmed administered medications: Yes csmith 04:46 PM Isovue 370 - 200ml,1 Bottle(s) used. csmith 04:46 PM Sheath left in place to be pulled on floor/holding area csmith 04:46 PM Post ECG NSR csmith 04:46 PM Post Blood Pressure 147/91 csmith 04:46 PM HR=72 bpm, OOLZ=402/86 mmhg, SpO2=98.0 %, Resp=15 B/min, Comment=nsr w/pacs 04:46 PM 16:46 Post Pulses Bilateral DP 2+ csmith 04:47 PM Information taught Cardiac Cath and PCI csmith 04:47 PM Education needs Responsibilities of Patient in Care csmith 04:47 PM Learning barriers :None csmith 04:47 PM Education Methods Verbal csmith 04:47 PM Education evaluation Able to repeat information csmith 04:48 PM Time: 16:48 Reopro Bolus: 13.6 ml Intravenous Given by Mali Plata RN IVP csmith 04:51 PM Time: 16:36 Patient comfortable and pain free: Yes csmith 04:51 PM Time: 16:35LOC: 5 = Fully awake and oriented or at pre-proc level csmith 04:51 PM Lesion found in Proximal RCA. Pre Stenosis: 30 Pre ANUJ Flow: csmith 04:51 PM Lesion found in Mid LAD. Pre Stenosis: 20 Pre ANUJ Flow: csmith 04:51 PM HR=72 bpm, TPQY=648/85 mmhg, SpO2=98.0 %, Comment=nsr w/pacs 04:51 PM Lesion found in Distal LAD. Pre Stenosis: 30 Pre ANUJ Flow: csmith 04:51 PM Lesion found in 1st Diagonal. Pre Stenosis: 30 Pre ANUJ Flow: csmith 04:52 PM Lesion found in Proximal Circumflex. Pre Stenosis: 30 Pre ANUJ Flow: csmith 04:52 PM Lesion found in 1st Marginal. Pre Stenosis: 30 Pre ANUJ Flow: csmith 04:59 PM Time: 16:59 Brilinta 180 mg Orally Given by Mali Plata RN csmith 05:01 PM Report given to eulalia CARPIO Pt taken to Room #3. 17:01 csmith 05:01 PM Plavix, Effient or Brilinta given Yes csmith 05:02 PM Patient out of room: 17:02 csmith Complications Complication None Hemodynamics Pressures Site Systolic/A Wave Diastolic/V Wave Mean AO 119 72 97 AO 104 66 85 LV 99 7 12 LV 103 20 29 AO 115 81 98 Post Procedure Information Blood Pressure: 147/91 mmHg Rhythm: NSR Post procedural instructions were given Closure Device Time Device Success/Fail Manual compresion Site Checks Time Location Status Staff Sheath In? Note 05:01 PM Rt Groin No bleeding/ No Hematoma Lotus Lu RT (R) Pulses Time Site Pre-Procedure Post-Procedure Note 06/05/2016 3:40:00 PM Bilateral DP 2+ 06/05/2016 3:40:00 PM Bilateral radial 2+ 4:46:00 PM Bilateral DP 2+ Updated by Johnathan Hough RN on 06/05/2016 5:03:22 PM electronically signed on 06/05/2016 5:03:48 PM with status of Final
[2016-06-05] MEDS ORDERED: Ondansetron 4 MG/2 ML VIAL IVP PRN (17:17)
--- NOTE | 2016-06-05 17:20 | Invasive Diagnostic Lab ---
Name: Saurav Gardner Date of Study: 06/05/2016 Date: 1955 Ht: 180.0 cm /70.9 in Medical Record#: [id number] Age: 60 Wt: 109. kg / 240.30 lb Account/Order#: [id number] Gender: Male BSA: 2.28 Order #: [id number] Fluoro Dose: 1302 mGy BMI: 33.64 Procedure Physician: Angelita Mendez MD, [facility] Referring MD: Elizabeth Ho, APPLICATIONS TRAINER Referring MD: Procedures Performed: LEFT HEART CATH Stent w/ PTCA Single Major Vessel Stent w/ PTCA Single Major Vessel Indications: Abnormal Test - Stress Impressions: Double vessel coronary artery disease. The left ventricle is normal and has normal contractility EF 60% Patient had successful PTCA/Drug-Eluting Stent placement in the proximal/mid LAD. Patient had successful PTCA/Bare-metal Stent placement in the mid RCA. Recommendations: DAPT for one year minimum uninterrupted. Optimal medical therapy of patient's disease. Aggressive risk factor modification. History/Risk Factors: SVT Hptn Unstable angina Procedure Access obtained in the right Femoral artery by percutaneous puncture Patient had successful PTCA/Drug-Eluting Stent placement in the proximal LAD. Patient had successful PTCA/Bare-metal Stent placement in the mid RCA. Complications: None Contrast: Isovue 181ml Closure Device: Manual compresion Hemodynamics: Pressures Site Systolic/ A Wave Diastolic/ V Wave End Diastolic/ Mean HR AO 119 72 97 67 AO 104 66 85 69 LV 99 7 12 75 LV 103 20 29 84 AO 115 81 98 71 LV Ventriculography Ejection Method: LV Gram Ejection Fraction: 60% Wall Motion: BRICE Anterobasal Normal Anterolateral Normal Apical: Normal Inferoapical Normal Inferobasal Normal Coronary Dominance: Co-dominant Lesion Findings/Interventions * Left Main Coronary Artery The LMCA is angiographically free of disease. * Left Anterior Descending There is a 30 mm long, 99% stenosis in the Proximal/mid LAD. The lesion has a ANUJ flow of 3 and has no thrombus present. An intervention was performed on the Proximal/mid LAD with a final stenosis of 0%. There were no lesion complications. The final ANUJ flow was 3. There is a 20% stenosis in the Mid LAD. There is a 30% stenosis in the Distal LAD. There is a 30% stenosis in the 1st Diagonal. * Circumflex There is a 30% stenosis in the Proximal Circumflex. There is a 30% stenosis in the 1st Marginal. * Right Coronary Artery There is a 30% stenosis in the Proximal RCA. There is a 15 mm long, 99% stenosis in the Mid RCA. The lesion has a ANUJ flow of 3 and has no thrombus present. An intervention was performed on the Mid RCA with a final stenosis of 0%. There were no lesion complications. The final ANUJ flow was 3. Interventional Device(s) Vessel Segment Type Name Diameter (mm) Length (mm) Proximal LAD balloon Emerge Monorail 2.5 15 Proximal LAD bioabsorbable stent Synergy 2.75 32 Mid RCA balloon Mini Trek Rx 1.5 12 Mid RCA bare metal stent Multi-Link Mini Vision RX Stent 2 18 Updated by Johnathan Hough RN on 06/05/2016 4:59:00 PM Angelita Menedz MD, FACC electronically signed on 06/05/2016 5:15:00 PM with status of Final
[2016-06-05] MEDS: 0.9 % Sodium Chloride 1,000 ML IVC SCH (17:41)
--- NOTE | 2016-06-05 17:53 | Internal Med Progress Note ---
Date of Encounter: 06/05/16 Time of Encounter: 18:07 - Assessment and plan (1) Chest pain Current Visit: Yes Status: Acute Assessment and plan: Patient presented with typical chest pain. Troponins were negative. EKG showed no acute ischemic changes. Appreciate cardiology input. He underwent stress test showing LVEF 61% and reversible perfusion defect involving the mid apical anterior, mid anteroseptum , apical septum and apex. moderate to severe LAD territory ischemia. PAtient had episode of hypotension after regadenoson was injected that responded to IV fluids. Subsequently, he underwent LHC showing double vessel CAD and underwent placement of AUGUSTA to proximal/mid LAD and mid RCA. No complications. He is now asymptomatic. continue ASA, lipitor, metoprolol, plavix and IV fluids. Qualifiers: Chest pain type: unspecified Qualified Code(s): R07.9 - Chest pain, unspecified (2) Abnormal stress test Current Visit: Yes Status: Acute Assessment and plan: plan as above. (3) Polycythemia Current Visit: Yes Status: Acute Assessment and plan: could be reactive from CAD. continue to monitor. patient denies tobacco use. (4) Hypertension Current Visit: Yes Status: Chronic Assessment and plan: episode of hypotension after regadenoson injection that responded to IV fluids. continue home dose of metoprolol. monitor. Qualifiers: Hypertension type: essential hypertension Qualified Code(s): I10 - Essential (primary) hypertension - Subjective Interval history: patient had LHC with placement of 2 AUGUSTA. no chest pain. no shortness of breath. - Constitutional Vitals: Temp Pulse Resp BP Pulse Ox 97.3 F L 59 16 153/93 95 06/05/16 17:17 06/05/16 17:46 06/05/16 17:46 06/05/16 17:46 06/05/16 17:46 General appearance: Present: cooperative, A&O X 3, pleasant, no acute distress, answers questions appropriately - Eye Eye exam: Present: PERRL, sclera anicteric - Neck Neck exam general surgery: Present: supple, trachea midline. Absent: lymphadenopathy - Respiratory Respiratory exam: Present: CTAB - Cardiovascular Cardiovascular exam: Present: RRR - GI/Abdominal GI/Abdominal exam: Present: normal bowel sounds, soft. Absent: distended, tenderness - Extremities Exam Extremities exam: Absent: pedal edema - Back Exam Back exam: Absent: CVA tenderness (L), CVA tenderness (R) - Neurological Exam Neurological exam: Present: alert, oriented X3, no focal deficits, strengths equal and symetr throughout. Absent: facial droop, speech deficit Internal Medicine: Result - Labs CBC & Chem 7: 06/05/16 09:14 06/05/16 09:14 Labs: Short CBC 06/05/16 Range/Units 09:14 WBC 11.4 H (4.3-11.1) K/mcL Hgb 18.4 H (12.9-16.9) g/dL Hct 53.8 H (37.5-50.1) % Plt Count 174 (140-400) K/mcL Neutrophils # 5.5 (1.6-8.9) K/mcL BMP 06/05/16 09:14 Sodium 143 Potassium 4.1 Chloride 106 Carbon Dioxide 26 BUN 16 Creatinine 1.15 Glucose 87 Calcium 9.2 Cardiac Enzymes 06/04/16 06/05/16 06/05/16 Range/Units 21:46 03:48 09:14 Troponin I 0.03 0.03 0.02 (0-0.03) ng/mL - ABG Interpretation ABG results: PT/INR, D-dimer PT 12.8 Seconds (9.4-12.1) H 06/04/16 16:15 - VTE Reasons for not Prescribing Prophylaxis: Not indicated-Anticoagulated or INR therapeutic Consult Discharge Plan - Plan Referrals: Elizabeth Ho, MACHINE STRIPPER [Primary Care Provider] -
[2016-06-05] MEDS ORDERED: *HR* Atropine Sulfate 1 MG/10 ML SYRINGE ONE (20:45)
[2016-06-06] MEDS ORDERED: 0.9 % Sodium Chloride 1,000 ML ONE
[2016-06-06 06:10] LABS: Basophils # 0.1 K/mcL (0.0-0.2); Basophils % 0.4 %; Eosinophils # 0.3 K/mcL (0.0-0.6); Eosinophils % 1.9 %; Immature Granulocytes % 1.2 % (0-4); Lymphocytes # 3.6 K/mcL (0.6-4.6); Lymphocytes % 26.1 %; Mean Corpuscular Hemoglobin 30.4 pg (28.0-33.3); Mean Platelet Volume 10.8 fL (9.4-12.4); Monocytes # 1.4 K/mcL (0.0-1.3); Monocytes % 10.2 %; Neutrophils # 8.2 K/mcL (1.6-8.9); Platelet Count 106 K/mcL (140-400); Red Blood Count 5.52 M/mcL (4.19-5.50); Red Cell Distribution Width 13.1 % (11.5-14.5); Segmented Neutrophils % 60.2 %
[2016-06-06 06:12] LABS: BUN/Creatinine Ratio 12 (6-26); Blood Urea Nitrogen 12 mg/dL (8-26); Calcium 8.3 mg/dL (8.6-10.8); Carbon Dioxide 23 mEq/L (19-29); Chloride 108 mEq/L (98-109); Glucose 84 mg/dL (70-99); Osmolality,Calculated 291 (280-300); Phosphorous 3.7 mg/dL (2.3-4.7); Potassium 4.2 mEq/L (3.5-4.5); Sodium 141 mEq/L (136-145); eGFR For African Americans > 60 (> 60); eGFR For Non-African Americans > 60 (> 60)
[2016-06-06 06:18] LABS: Hemoglobin 16.8 g/dL (12.9-16.9)
[2016-06-06] MEDS ORDERED: Aspirin 81 MG TAB.CHEW PO SCH (09:00)
[2016-06-06] MEDS: 0.9 % Sodium Chloride 1,000 ML IVC SCH (09:12)
--- NOTE | 2016-06-06 10:13 | Cardiology Progress Note ---
Date of Encounter: 06/06/16 Time of Encounter: 10:11 Assessment and Plan (1) Unstable angina Current Visit: Yes Status: Acute He is now chest pain-free. (2) Abnormal stress test Current Visit: Yes Status: Acute S/p LHC with PCI. (3) CAD (coronary artery disease) Current Visit: Yes Status: Acute LHC- 90% stenosis in the pLAD and PTCA with AUGUSTA placed. 99% stenosis in the mRCA and BMS/PTCA comleted. Mild disease otherwise. Importance of DAPT with asa and plavix uninterrupted for a minimum of one year discussed. Pt voiced understanding. Continue statin and beta-elli. He is now chest pain free. NTG SL PRN chest pain RX at D/c. F/u will be made in 7-10 days by cardiology. Activity restrictions including no driving for one week, no heavy lifting over 10 lbs for one week and no tub baths reviewed. Dressing remains on d/t recurrent hematoma. Groin now soft. Hgb is ok. Qualifiers: Coronary Disease-Associated Artery/Lesion type: [place] artery [place] vs. transplanted heart: [place] heart Associated angina: without angina Qualified Code(s): I25.10 - Atherosclerotic heart disease of [place] coronary artery without angina pectoris (4) Hematoma Current Visit: Yes Status: Acute Right groin hematoma resolved with manual pressure. Groin now soft with moderate amount of ecchymosis. Pt c/o pain with palpation. Arterial US pending. Discussion w patient/family: The assessment and plan as outlined above was discussed with the patient and/or family members who expressed understanding and agreement. All questions were answered. Thank you for involving us in the care of your patient. Please call with any questions. Subjective Principal diagnosis: abnormal Stress, CAD Interval history: Mr. Gardner denies recurrent chest pain. He did develop a right groin hematoma twice last night. Groin is currently soft but with a significant amount of ecchymosis. He complains of pain with palpation. An ultrasound of the groin was ordered by the hospitalist. We will continue to follow. Objective Vital Signs, Last 4 Hours Temp Pulse Resp BP Pulse Ox 06/06/16 09:37 96 06/06/16 09:20 73 13 95 06/06/16 07:32 98.2 F 58 18 127/96 98 General: Conversant, No Apparent Distress HEENT: Atraumatic, Normocephaly, Mucus Membranes Moist Neck: No JVD, Normal carotid pulses Cardiac: Reg Rate and Rhythm, Normal S1 and S2, No Murmur Lungs: Normal Breath Sounds, No Wheeze, Rales, Rhonchi Neuro: Alert and responsive, No focal deficits noted Abdomen: Soft, Non-Tender Skin: No rashes noted on visualized skin Musculoskeletal: No Chest Wall Tenderness Extremities: No Clubbing, No Cyanosis, No Edema, Normal Pulses, Other (Right groin with new dressing intact. Moderate amount of ecchymosis noted. Tender to palpation. No hematoma palpated currently.) Results 06/06/16 05:06 06/06/16 05:06 Lab Results 06/06/16 06/06/16 05:06 05:06 WBC 13.6 H Hgb 16.8 D Hct 48.0 Plt Count 106 L Sodium 141 Potassium 4.2 Chloride 108 Carbon Dioxide 23 BUN 12 Creatinine 0.99 Glucose 84 Calcium 8.3 L Magnesium 2.0 - Imaging and Cardiology Cardiac cath: report reviewed - EKG Interpretation EKG results cardiology: personally reviewed (Sinus rhythm with no acute ST changes. Frequent PAC.), other (24 hour telemetry review shows average heart rate at 74 bpm. There is multiple PACs.) - VTE Reasons for not Prescribing Prophylaxis: Not indicated-Anticoagulated or INR therapeutic Consult Discharge Plan - Plan Referrals: Elizabeth Ho, UX LEAD [Primary Care Provider] -
--- NOTE | 2016-06-06 15:22 | Discharge Summary ---
Date of Encounter: 06/06/16 Time of Encounter: 15:20 - Discharge Diagnosis (1) Unstable angina Priority: Primary Status: Acute (2) Abnormal stress test Priority: Primary Status: Acute (3) CAD (coronary artery disease) Priority: Primary Status: Acute Qualifiers: Coronary Disease-Associated Artery/Lesion type: jena artery [place] vs. transplanted heart: jena heart Associated angina: without angina Qualified Code(s): I25.10 - Atherosclerotic heart disease of jena coronary artery without angina pectoris (4) Hematoma Priority: Primary Status: Acute (5) Polycythemia Priority: Secondary Status: Chronic (6) Hypertension Priority: Secondary Status: Chronic Qualifiers: Hypertension type: essential hypertension Qualified Code(s): I10 - Essential (primary) hypertension - Discharge Medications Prescriptions: Nitroglycerin 0.4 mg SL Q5MIN PRN #7 tab.subl PRN Reason: Chest Pain Aspirin 81 mg PO DAILY #30 tab.chew Atorvastatin [Lipitor] 80 mg PO HS #60 tablet Clopidogrel [Plavix] 75 mg PO DAILY #30 tablet Home Medications: Metoprolol [Lopressor] 50 mg PO BID 06/04/16 [History] Aspirin 81 mg PO DAILY #30 tab.chew 06/06/16 [Rx] Atorvastatin [Lipitor] 80 mg PO HS #60 tablet 06/06/16 [Rx] Clopidogrel [Plavix] 75 mg PO DAILY #30 tablet 06/06/16 [Rx] Nitroglycerin 0.4 mg SL Q5MIN PRN #7 tab.subl 06/06/16 [Rx] Allergies/Adverse Reactions: Allergies No Known Allergies Allergy (Verified 06/04/16 16:29) Procedures/tests Complete & Pending: Procedures Performed prior 72 hours Category Date Time Status CL Cardiac Catheterization [CL] Routine Primary Health Care Nurse 06/05/16 15:04 Completed NM charles perf SPECT multi [NM] Routine Exams 06/05/16 10:45 Taken EV arterial imaging LE RT Routine Y 06/06/16 08:42 Completed SP pharm nuclear stress Routine Y 06/05/16 10:45 Completed Date of admission: 06/04/16 18:18 Primary care physician: Elizabeth Ho CNP Consults: 06/05/16 17:16 Consult to Cardiac Rehabilitation-Phase1 [CONS] Routine Comment: Reason for Consult: CAD s/p PCI Call Completed: Yes - Patient Status Disposition: Home, Self-Care Condition: Good Functional capacity at discharge: independent ambulation Overall status at discharge: patient is progressing back to baseline - Discharge Instructions Instructions: Nitroglycerin (By mouth), Aspirin (By mouth), Atorvastatin (By mouth), Clopidogrel (By mouth), Left Heart Catheterization (DC), How to Stop Smoking (DC), Cigarette Smoking and Your Health (GEN) Follow Up With: Elizabeth Ho STRAIGHT TOOTH GEAR GENERATOR OPERATOR [Primary Care Provider] - (please call for a f/u in 1 week) Forms: ED Satisfaction Letter Additional Instructions: f/u in the cardiology clinic in 7-10 days (the cardiology clinic will call you with the date and time of your appt). [facility] f/u with your primary care doctor for a complete check up. RISK FACTORS: STOP SMOKING: If you smoke, STOP. Smoking or tobacco use significantly increases your risk of heart disease because nicotine causes the arteries to narrow or constrict. It also causes fats to stick to the artery. Your chances of having a heart attack are greatly increased if you continue to smoke. For more information, call the education line for smoking cessation 0-516-[id number] EAT A LOW FAT/CHOLESTEROL/SODIUM DIET: This diet may help reduce your chances of having a heart attack. LIFTING: Avoid lifting anything more than 10 pounds for 5-7 days Prior to straining, laughing, sneezing and/or coughing, apply manual pressure directly over insertion site. ACTIVITY: You may walk or climb stairs as tolerated You can resume sexual activity as tolerated In general, you are encouraged to engage in a minimum of 30 minutes or more of moderate intensity physical activity, such as brisk walking, daily or at least 3 -4 times weekly BATHING Do not submerge the site into water (bath tub, hot tub, swimming pool) for 1 week. This can be a source for infection into the blood stream. You may shower after 24 hours SITE CARE: After 24 hours, you may remove the dressing and leave the site open to air. Keep the site clean and dry. Clean gently and pat dry. You can expect bruising and tenderness that gradually resolve within a week or two. Return to work as instructed per your physician Resume driving as instructed per physician Keep all scheduled follow up appointments Resume medications as instructed IMPORTANT: If prescribed a Platelet Aggregation Inhibitor such as, Plavix, Brilinta or Effient: Duration of therapy is minimum one year These medications are often used in combination with Aspirin in prevention of future heart attacks Never discontinue unless consult with your Au Pair STROKE (CVA) Risk factors for a stroke are: Age, cigarette smoking, diabetes, excessive alcohol consumption, family history, high blood pressure, overweight, physical inactivity, prior stroke, heart attack, diagnosis of carotid artery stenosis or other artery disease. Warning signs: Sudden numbness or weakness of the face, arm or leg; especially on one side of the body, sudden confusion, trouble speaking or understanding, sudden trouble seeing in one or both eyes, sudden trouble walking, dizziness, loss of balance or coordination, sudden severe headache with no cause. Call 911 or go to the Emergency Room. CONGESTIVE HEART FAILURE: If you have been diagnosed with Congestive Heart Failure (CHF) and your symptoms return, make an appointment with your physician Weigh yourself daily. Notify your physician if you have a weight gain of two or more pounds in one day or five or more pounds in one week. If you experience any difficulty breathing, please call 911 BLEEDING: Although the risk of bleeding is minimal, it can happen. If you have any bleeding from the site, apply firm pressure above the puncture site for 10-15 minutes. If the bleeding does not stop, continue manual pressure and call 911 Contact your physician if: You develop a fever greater than 101 degrees Fahrenheit Your site becomes reddened or has any drainage You have an increase in pain or burning at the site or if a large knot forms at the site. If you experience chest pain, shortness of breath, dizziness, or extreme tiredness, stop the activity and rest. Please notify your physicians office if you experience any of these symptoms and they are not relieved by rest please call 911! - Diet and Activity Activity: resume usual activities as tolerated Diet: low fat, low cholesterol, low salt diet Interval History: Patient denies any chest pain, shortness of breath. He complains only of right groin pain when he moves his leg. Hospital course: Mr. Gardner is a 60 year old male with past medical history of hypertension who presented with chest pain. Troponins were negative. EKG showed no acute ischemic changes. He underwent stress test showing LVEF 61% and reversible perfusion defect involving the mid apical anterior, mid anteroseptum, apical septum and apex. moderate to severe LAD territory ischemia. Patient had an episode of hypotension after regadenoson was injected that responded to IV fluids. Subsequently, he underwent LHC showing double vessel CAD and underwent placement of A[place]USTA to proximal/mid LAD and mid RCA. He was started on ASA, lipitor , metoprolol, and plavix. He developed a right groin hematoma. LE extremity arterial ultrasound revealed no pseudoaneurysm at right groin. Patient remained chest pain-free and no shortness of breath. He was ambulating and eating well. Plan: Follow-up in the cardiology clinic in 7-10 days (the cardiology clinic will call patient with the appointment). Follow-up with primary care physician for a complete checkup and to address polycythemia (pending result of the Reggie 2 and erythropoietin levels). - Time Spent with Patient Total time spent providing and/or coordinating discharge services: - Constitutional Vitals: Temp Pulse Resp BP Pulse Ox 98.3 F 72 19 121/90 96 06/06/16 11:19 06/06/16 11:19 06/06/16 11:19 06/06/16 11:19 06/06/16 11:19 General appearance: Present: cooperative, A&O X 3, pleasant, no acute distress, answers questions appropriately - Eye Eye exam: Present: PERRL, sclera anicteric - Neck Neck exam general surgery: Present: supple, trachea midline. Absent: lymphadenopathy - Respiratory Respiratory exam: Present: CTAB - Cardiovascular Cardiovascular exam: Present: RRR - GI/Abdominal GI/Abdominal exam: Present: normal bowel sounds, soft. Absent: distended, tenderness - Extremities Exam Extremities exam: Absent: pedal edema Additional comments: Right groin hematoma at site of needle insertion. No bruit. Pedal pulses present bilaterally. - Back Exam Back exam: Absent: CVA tenderness (L), CVA tenderness (R) - Neurological Exam Neurological exam: Present: alert, oriented X3, no focal deficits. Absent: facial droop, speech deficit - VTE Reasons for not Prescribing Prophylaxis: Not indicated-Anticoagulated or INR therapeutic
[2016-06-06 15:33] VITALS: BP 157/90
--- NOTE | 2016-06-06 22:35 | Electrocardiograph Report ---
[facility] Test Date: 2016-06-04 Pat Name: Saurav Gardner Department: 103 Room: 2N03 Gender: M Safety Council Director: ZURI : 1955 Requested By: Gilberto Hanson Order Number: [id number] Reading MD: Zoltan Chambers MD Measurements Intervals [place] Rate: 72 P: 30 MD: 131 QRS: 26 QRSD: 84 T: 80 QT: 339 QTc: 364 Interpretive Statements SINUS RHYTHM WITH FREQUENT SUPRAVENTRICULAR PREMATURE COMPLEXES NONSPECIFIC ST \T\ T-WAVE ABNORMALITY Electronically Signed On 06-06-16 22:34:31 EST by Zoltan Chambers MD
[2016-06-07 07:23] LABS: Erythropoietin 7 mU/mL (4-27)
--- NOTE | 2016-06-08 16:12 | Arterial Study Report ---
LE Arterial Duplex Patient Name:Saurav Gardner Order Number:[id number] Procedure Date:06/06/2016 Date:1955ge:60 yrs Gender:Male Location:[facility] Room #: 2N03 Plant Nursery Worker:SHERRELL NelsonT Referring MD:Curtis Mosley PRINTER SLOTTER OPERATOR informatics scientist:Elizabeth Ho, PRINTER SLOTTER OPERATOR Reading MD:Giuseppe Abel MD , FACS Primary Indications:evaluate for pseudoaneurysm Risk Factors Yes/No Hx of CAD/PTCA Yes Impressions: Pseudoaneurym: none. Findings Arterial Duplex Results: Right: The PSV in the right common femoral artery is 107 cm/s. There is no evidence of an AV fistula. There is no evidence of a pseudoaneurysm. Prior Study: No prior study available for comparison. LE Duplex Side Vessel PSV EDV Assessment Right Common Femoral 107 0 Normal Updated by Giuseppe Abel MD, FACS on 06/08/2016 4:07:20 PM Giuseppe Abel MD electronically signed on 06/08/2016 4:07:51 PM with status of Final
[2016-06-10 14:47] LABS: JAK2 (V617F) Mutation by PCR NOT DETECTED
== END 2016-06-06 16:41 | disposition home or self-care (01) ==
LOC: 3BNU 16:06 → EMEROO 16:06 → SUATTDRO 18:18 → 3BNU 18:39 → 2NNU 06-05 17:06
PROVIDERS: ADMIT Nurse Practitioner Acute Care; ATTEND Internal Medicine

== ENCOUNTER 2016-08-19 07:21 | Observation (INO) ==
--- NOTE | 2016-08-19 07:33 | Emergency Department Note ---
Disposition Clinical Impression: Intermittent palpitations Dyspnea Qualifiers: Dyspnea type: unspecified Qualified Code(s): R06.00 - Dyspnea, unspecified Disposition: Admitted As Inpatient Condition: Fair Time of Disposition: 09:08 SOB HPI - General Chief Complaint: ED Shortness of Breath/Dyspnea Stated Complaint: RAJESH Time Seen by Provider: 08/19/16 07:28 Source: patient, EMS Mode of arrival: ambulatory Limitations: no limitations Nursing Notes Reviewed: Yes Vital Signs Reviewed: Yes - History of Present Illness Alert and oriented 61-year-old male presents to the emergency department by EMS for evaluation of palpitations and shortness of breath. The patient states that he has a sensation of a "fluttering" in his chest that "takes my breath away". The patient states his symptoms began yesterday evening as he was walking into work. He states the symptoms persisted intermittently throughout the night, however worsened just prior to arrival. He denies any associated chest pain, nausea, vomiting, or diaphoresis. He denies any recent illnesses. He denies any fever, or cough. He denies any abdominal pain or diarrhea. The patient states that he just this past May, he did have cardiac stents placed due to a 99% blockage. This procedure was done at this facility. He was placed on aspirin and Plavix, which he states he is faithful in taking as prescribed. He also complains of a sensation of lightheadedness but denies any syncopal episodes. He denies any headache or visual disturbances. Pt Subjective Complaint: shortness of breath (With palpitations) Onset (ago): hour(s) (Yesterday evening) Severity: moderate Consistency/Duration: intermittent Improves with: nothing Worsens with: nothing Associated symptoms: Reports: palpitations, other ("Lightheaded"). Denies: chest pain, fever, cough, wheezing, sputum production, diaphoresis, nausea/ vomiting Treatment prior to arrival: none Cough present: No - Related Data Home Medications Medication Instructions Recorded Confirmed Aspirin 81 mg PO DAILY 08/19/16 08/19/16 Clopidogrel [Plavix] 75 mg PO DAILY 08/19/16 08/19/16 Metoprolol Tartrate [Lopressor] 50 mg PO BID 08/19/16 08/19/16 Multivit-Min/FA/Lycopen/Lutein 1 tab PO DAILY 04/13/17 04/13/17 [Centrum Silver Men Tablet] Nitroglycerin [Nitrostat] 0.4 mg SL AD PRN 08/19/16 08/19/16 Ubidecarenone/Vit E Acetate [Co 100 mg PO DAILY 08/19/16 08/19/16 Q-10 100 mg Softgel] Allergies Allergy/AdvReac Type Severity Reaction Status Date / Time No Known Allergies Allergy Verified 08/19/16 07:45 All systems ED: reviewed and negative except as stated. Constitutional: Denies: fever, chills, weakness, weight change Eyes: Denies: eye pain, eye discharge, vision change ENT ED: Denies: ear pain, throat pain, dental pain, hearing loss, epistaxis, congestion, dysphagia Cardiovascular: Reports: as per HPI, palpitations. Denies: chest pain, dyspnea on exertion, edema, syncope Respiratory: Reports: as per HPI, dyspnea (Dyspnea associated with the palpitations). Denies: cough, wheezes, hemoptysis, stridor Gastrointestinal: Denies: abdominal pain, nausea, vomiting, diarrhea, constipation, hematemesis, melena, hematochezia Genitourinary: Denies: urgency, dysuria, frequency, hematuria Musculoskeletal: Denies: back pain, neck pain, arthralgia, myalgia Integumentary: Denies: rash, abrasion, lesions Neurological: Reports: as per HPI, other ("light-headedness"). Denies: headache , weakness, numbness, paresthesias, confusion, abnormal gait, vertigo Psychiatric: Denies: anxiety, depression, suicidal thoughts, homicidal thoughts , auditory hallucinations, visual hallucinations Endocrine: Denies: fatigue Hematological/Lymphatic: Denies: easy bleeding, easy bruising Allergic/Immunologic: Denies: facial swelling, urticaria Past Medical History - Past Medical History Attestation: Yes The following information was validated with the patient. Source: patient Medical history: Reports: asthma, coronary artery disease, hypertension Psychiatric history: Reports: anxiety - Social History Smoking Status: Current every day smoker Alcohol use: Reports: none Drug use: Reports: none Physical Exam - General Limitations: no limitations General appearance: alert, in no apparent distress - Head Head exam: atraumatic, normocephalic, normal inspection - Eye Eye exam: Present: normal appearance, PERRL, EOMI. Absent: nystagmus - Expanded Eye Exam Pupils: Bilateral: regular, round, reactive, size (2) - ENT ENT exam: mucous membranes moist - Neck Neck exam: Present: normal inspection, full ROM, trachea midline - Chest Chest inspection: Present: normal inspection, symmetric chest wall rise - Respiratory Respiratory exam: Present: normal lung sounds bilaterally. Absent: respiratory distress, wheezes, stridor, accessory muscle use, prolonged expiratory phase - Cardiovascular Cardiovascular exam: Present: regular rate, normal rhythm, normal heart sounds - Abdominal Exam Abdominal exam: Present: soft, Non-Tender, normal bowel sounds. Absent: tenderness, distention, guarding, rebound, rigidity - Extremities Exam Extremities exam: Present: normal inspection, full ROM. Absent: tenderness, pedal edema - Back Exam Back exam: Present: normal inspection, full ROM. Absent: tenderness - Neurological Exam Neurological exam: Present: alert, oriented X3 - Psychiatric Psychiatric exam: Present: normal affect, normal mood - Skin Skin exam: Present: warm, dry, intact, normal color Course Course Narrative: 0857: I spoke with Dr. Macias, cardiology on-call. Dr. Macias recommends admission to the hospitalist service for observation. I discussed this plan with the patient and the patient is in agreement. 0906: I spoke with the hospitalist. The hospitalist has accepted this patient under her service for observation. Vital Signs Temperature 98.9 F 08/19/16 07:22 Pulse Rate 87 08/19/16 07:22 Respiratory Rate 18 08/19/16 07:22 Blood Pressure 167/96 08/19/16 07:22 O2 Sat by Pulse Oximetry 97 08/19/16 07:22 Temperature 98.9 F 08/19/16 07:22 Pulse Rate 71 08/19/16 07:31 Respiratory Rate 16 08/19/16 07:31 Blood Pressure 167/96 08/19/16 07:31 O2 Sat by Pulse Oximetry 99 08/19/16 07:31 Oxygen Delivery Oxygen Delivery Room Air Shortness of Breath/Dyspnea - Medical Records Medical records reviewed: Yes I reviewed the patient's medical records. - Lab Data Lab results reviewed: Yes I reviewed the patient's lab results. Lab results narrative: Laboratory Last Values WBC 8.7 K/mcL (4.3-11.1) 08/19/16 07:45 RBC 6.11 M/mcL (4.19-5.50) H 08/19/16 07:45 Hgb 18.0 g/dL (12.9-16.9) H 08/19/16 07:45 Hct 51.6 % (37.5-50.1) H 08/19/16 07:45 MCV 84.5 fL (83.0-100.0) 08/19/16 07:45 MCH 29.5 pg (28.0-33.3) 08/19/16 07:45 MCHC 34.9 g/dL (31.6-35.5) 08/19/16 07:45 RDW 12.6 % (11.5-14.5) 08/19/16 07:45 Plt Count 164 K/mcL (140-400) 08/19/16 07:45 MPV 10.2 fL (9.4-12.4) 08/19/16 07:45 Immature Gran % 0.7 % (0-4) 08/19/16 07:45 Seg Neutrophils % 56.3 % 08/19/16 07:45 Lymphocytes % 32.8 % 08/19/16 07:45 Monocytes % 6.0 % 08/19/16 07:45 Eosinophils % 3.7 % 08/19/16 07:45 Basophils % 0.5 % 08/19/16 07:45 Neutrophils # 4.9 K/mcL (1.6-8.9) 08/19/16 07:45 Lymphocytes # 2.8 K/mcL (0.6-4.6) 08/19/16 07:45 Monocytes # 0.5 K/mcL (0.0-1.3) 08/19/16 07:45 Eosinophils # 0.3 K/mcL (0.0-0.6) 08/19/16 07:45 Basophils # 0.0 K/mcL (0.0-0.2) 08/19/16 07:45 PT 14.1 Seconds (9.4-12.1) H 08/19/16 07:45 INR 1.3 08/19/16 07:45 APTT 33.0 Seconds (26.0-36.0) 08/19/16 07:45 D-Dimer 253 ng/mLFEU (0-500) 08/19/16 07:45 Sodium 138 mEq/L (136-145) 08/19/16 07:45 Potassium 3.5 mEq/L (3.5-4.5) 08/19/16 07:45 Chloride 107 mEq/L (98-109) 08/19/16 07:45 Carbon Dioxide 19 mEq/L (19-29) 08/19/16 07:45 BUN 14 mg/dL (8-26) 08/19/16 07:45 Creatinine 1.11 mg/dL (0.72-1.25) 08/19/16 07:45 Est GFR ( Amer) > 60 (> 60) 08/19/16 07:45 Est GFR (Non-Af Amer) > 60 (> 60) 08/19/16 07:45 BUN/Creatinine Ratio 13 (6-26) 08/19/16 07:45 Glucose 176 mg/dL (70-99) H 08/19/16 07:45 Calculated Osmolality 291 (280-300) 08/19/16 07:45 Calcium 9.5 mg/dL (8.6-10.8) 08/19/16 07:45 Troponin I 0.01 ng/mL (0-0.03) 08/19/16 07:45 B-Natriuretic Peptide 69 pg/mL (0-100) 08/19/16 07:45 Result diagrams: 08/19/16 07:45 08/19/16 07:45 Lab Results 08/19/16 08/19/16 08/19/16 Range/Units 07:45 07:45 07:45 WBC 8.7 (4.3-11.1) K/mcL RBC 6.11 H (4.19-5.50) M/mcL Hgb 18.0 H (12.9-16.9) g/dL Hct 51.6 H (37.5-50.1) % MCV 84.5 (83.0-100.0) fL MCH 29.5 (28.0-33.3) pg MCHC 34.9 (31.6-35.5) g/dL RDW 12.6 (11.5-14.5) % Plt Count 164 (140-400) K/mcL MPV 10.2 (9.4-12.4) fL Immature Gran % 0.7 (0-4) % Seg Neutrophils % 56.3 % Lymphocytes % 32.8 % Monocytes % 6.0 % Eosinophils % 3.7 % Basophils % 0.5 % Neutrophils # 4.9 (1.6-8.9) K/mcL Lymphocytes # 2.8 (0.6-4.6) K/mcL Monocytes # 0.5 (0.0-1.3) K/mcL Eosinophils # 0.3 (0.0-0.6) K/mcL Basophils # 0.0 (0.0-0.2) K/mcL PT (9.4-12.1) Seconds INR APTT (26.0-36.0) Seconds D-Dimer (0-500) ng/mLFEU Sodium 138 (136-145) mEq/L Potassium 3.5 (3.5-4.5) mEq/L Chloride 107 (98-109) mEq/L Carbon Dioxide 19 (19-29) mEq/L BUN 14 (8-26) mg/dL Creatinine 1.11 (0.72-1.25) mg/dL Est GFR ( Amer) > 60 (> 60) Est GFR (Non-Af Amer) > 60 (> 60) BUN/Creatinine Ratio 13 (6-26) Glucose 176 H (70-99) mg/dL Calculated Osmolality 291 (280-300) Calcium 9.5 (8.6-10.8) mg/dL Troponin I 0.01 (0-0.03) ng/mL B-Natriuretic Peptide (0-100) pg/mL 08/19/16 08/19/16 Range/Units 07:45 07:45 WBC (4.3-11.1) K/mcL RBC (4.19-5.50) M/mcL Hgb (12.9-16.9) g/dL Hct (37.5-50.1) % MCV (83.0-100.0) fL MCH (28.0-33.3) pg MCHC (31.6-35.5) g/dL RDW (11.5-14.5) % Plt Count (140-400) K/mcL MPV (9.4-12.4) fL Immature Gran % (0-4) % Seg Neutrophils % % Lymphocytes % % Monocytes % % Eosinophils % % Basophils % % Neutrophils # (1.6-8.9) K/mcL Lymphocytes # (0.6-4.6) K/mcL Monocytes # (0.0-1.3) K/mcL Eosinophils # (0.0-0.6) K/mcL Basophils # (0.0-0.2) K/mcL PT 14.1 H (9.4-12.1) Seconds INR 1.3 APTT 33.0 (26.0-36.0) Seconds D-Dimer 253 (0-500) ng/mLFEU Sodium (136-145) mEq/L Potassium (3.5-4.5) mEq/L Chloride (98-109) mEq/L Carbon Dioxide (19-29) mEq/L BUN (8-26) mg/dL Creatinine (0.72-1.25) mg/dL Est GFR ( Amer) (> 60) Est GFR (Non-Af Amer) (> 60) BUN/Creatinine Ratio (6-26) Glucose (70-99) mg/dL Calculated Osmolality (280-300) Calcium (8.6-10.8) mg/dL Troponin I (0-0.03) ng/mL B-Natriuretic Peptide 69 (0-100) pg/mL - Radiology Data Radiology results reviewed: Yes I reviewed the patient's radiology results. Chest X-Ray 08/19/16 07:29 IMPRESSION: No acute cardiopulmonary disease. D/ / Joe Iverson MD / Joe Iverson MD Interpreting Provider: Joe Iverson MD - EKG Data EKG attestation: Yes I reviewed and interpreted this EKG. EKG results narrative: EKG reviewed by Dr. Gaffney as well. Sinus rhythm with occasional supraventricular premature complexes at a rate of 70 beats per minute. No STEMI. EKG repeated at [address] Gaffney as well. Serial EKG shows no elevation. No STEMI. Attestation Statement - Attestation Attestation: I examined this patient and my medical decision-making was reviewed with the NEUROLOGICAL SURGERY TEACHER/PA/Advanced Practice Nurse/Resident Physician. I agree with the documented findings, disposition and treatment plan as described except to the extent set forth below. Patient to the emergency department with palpitations and dizziness. Patient was walking to work today. He states he felt dizzy and his heart was racing and pounding. Works at the [employer]. States they called medics and his heart rate was in the 130s when they arrived. Patient recently had 2 stents placed. A similar episode of this last week for which he was seen in [place]. On examination he is in no distress. His heart is irregular but rate controlled. Lungs are clear. Plan. Patient's EKG is sinus. Question if he went into some type of arrhythmia. Patient is admitted after discussion with cardiology.
[2016-08-19 08:01] LABS: INR 1.3; Prothrombin Time 14.1 Seconds (9.4-12.1)
[2016-08-19 08:02] LABS: Basophils % 0.5 %; Eosinophils # 0.3 K/mcL (0.0-0.6); Eosinophils % 3.7 %; Hematocrit 51.6 % (37.5-50.1); Immature Granulocytes % 0.7 % (0-4); Lymphocytes # 2.8 K/mcL (0.6-4.6); Lymphocytes % 32.8 %; Mean Corpuscular HGB Conc 34.9 g/dL (31.6-35.5); Mean Corpuscular Hemoglobin 29.5 pg (28.0-33.3); Mean Corpuscular Volume 84.5 fL (83.0-100.0); Mean Platelet Volume 10.2 fL (9.4-12.4); Monocytes # 0.5 K/mcL (0.0-1.3); Neutrophils # 4.9 K/mcL (1.6-8.9); Platelet Count 164 K/mcL (140-400); Red Blood Count 6.11 M/mcL (4.19-5.50); Red Cell Distribution Width 12.6 % (11.5-14.5); Segmented Neutrophils % 56.3 %
[2016-08-19 08:07] LABS: BUN/Creatinine Ratio 13 (6-26); Blood Urea Nitrogen 14 mg/dL (8-26); Calcium 9.5 mg/dL (8.6-10.8); Carbon Dioxide 19 mEq/L (19-29); Chloride 107 mEq/L (98-109); Glucose 176 mg/dL (70-99); Osmolality,Calculated 291 (280-300); Potassium 3.5 mEq/L (3.5-4.5); Sodium 138 mEq/L (136-145); eGFR For African Americans > 60 (> 60); eGFR For Non-African Americans > 60 (> 60)
--- NOTE | 2016-08-19 11:57 | Internal Med History&Physical ---
Date of Encounter: 08/19/16 Time of Encounter: 11:50 Assessment and Plan (1) Sinus arrhythmia Current visit: Yes Status: Acute HR stable now but still irregular. cardio has been consulted, he has an appt. with Dr. Mendez, was last seen by Dr. Carpenter and was referred to Dr. Mendez. EKG sinus rhythm with PACs. Previous Holter evaluated showed frequent PACs with 30 episodes of SVT with longest being 17 beats. asya conitnue the beta elli. Recent echo showed preserved 65%, no significant valvular dysfunction, no pulmonary hypertension, no segmental wall motion abnormalities. monitor tele and will follow cardiac recommendations. (2) Dyspnea Current visit: Yes Status: Acute possible 2/2 tachyarrhythmia. stable now. cxr with no acute pathology. no h/o CHF, COPD or asthma Qualifiers: Dyspnea type: unspecified Qualified Code(s): R06.00 - Dyspnea, unspecified Internal Medicine - H&P: HPI Chief complaint: fast heart rate Admitted From: Home Plans for Post Hospital Care: Home History of present illness: Mr. Gardner is a 61 year old male presents to the emergency department by EMS for evaluation of palpitations and shortness of breath. The patient states that he has a sensation of a "fluttering" in his chest that "takes my breath away". The patient states his symptoms began todY MORNING as he was walking into work. He states the symptoms started yesterday night, however worsened today morning . He denies any associated chest pain, nausea, vomiting, or diaphoresis. He denies any recent illnesses. He denies any fever, or cough. He denies any abdominal pain or diarrhea. The patient states that he just this past May, he did have cardiac stents placed due to a 99% blockage. This procedure was done at this facility. He was placed on aspirin and Plavix, which he states he is faithful in taking as prescribed. He also complains of a sensation of lightheadedness but denies any syncopal episodes. He denies any headache or visual disturbances. he was seen by Dr. Carpenter recently for arrhythmia, he reports that this fluttering sensation has been going on ever since the stent has been placed. He was told that he has some irregular and skipped heartbeat, recently had a Holter monitor recently evaluated by Dr. Carpenter that shows sinus arrhythmia and sinus bradycardia. After reviewing the reports, he was referred to Dr. Carlos Mendez which he has not seen yet. Past Med Surg Social Fam HX - Past Medical History Medical history: asthma, coronary artery disease, hypertension Psychiatric history: anxiety - Social History Smoking Status: Never smoker Alcohol use: none Drug use: none - Family History Mother Living Status: Hx Family Cardiac Disorders: Yes Hx Family Psychosocial Disorders: Yes (alheimer's) Father Living Status: Hx Family Cardiac Disorders: Yes Sister Living Status: Hx Family Cancer: Yes (ovarian cancer) Brother Living Status: Cause of : unknown-possibly cardiac related Internal Medicine - H&P: Meds Aspirin 81 mg PO DAILY 08/19/16 [History] Clopidogrel [Plavix] 75 mg PO DAILY 08/19/16 [History] Metoprolol Tartrate [Lopressor] 50 mg PO BID 08/19/16 [History] Multivit-Min/FA/Lycopen/Lutein [Centrum Silver Men Tablet] 1 tab PO DAILY [History] Nitroglycerin [Nitrostat] 0.4 mg SL AD PRN 08/19/16 [History] Ubidecarenone/Vit E Acetate [Co Q-10 100 mg Softgel] 100 mg PO DAILY 08/19/16 [ History] Allergies No Known Allergies Allergy (Verified 08/19/16 07:45) All Systems PM: A 10-system review of systems was performed and is negative for pertinent findings except as documented above in the HPI. - Constitutional Vitals: Temp Pulse Resp BP Pulse Ox 98.0 F 56 16 119/75 96 08/19/16 11:24 08/19/16 11:24 08/19/16 11:24 08/19/16 11:24 08/19/16 11:24 General appearance: Present: A&O X 3, no acute distress Exam: - Head Head exam: atraumatic, normocephalic, normal inspection - Eye Eye exam: Present: normal appearance, PERRL, EOMI. Absent: nystagmus - Neck Neck exam: Present: normal inspection, full ROM, trachea midline - Respiratory Respiratory exam: Present: normal lung sounds bilaterally. Absent: respiratory distress, wheezes, stridor, accessory muscle use, prolonged expiratory phase - Cardiovascular Cardiovascular exam: Present: irregular rhythm , no m/r/g - Abdominal Exam Abdominal exam: Present: soft, Non-Tender, normal bowel sounds. Absent: tenderness, distention, guarding, rebound, rigidity - Extremities Exam Extremities exam: Present: normal inspection, full ROM. Absent: tenderness, pedal edema - Back Exam Back exam: Present: normal inspection, full ROM. Absent: tenderness - Neurological Exam Neurological exam: Present: alert, oriented X3 - Psychiatric Psychiatric exam: Present: normal affect, normal mood - Skin Skin exam: Present: warm, dry, intact, normal color Internal Med - H&P Results - Labs CBC & Chem 7: 08/19/16 07:45 08/19/16 07:45
[2016-08-19] MEDS ORDERED: Naloxone 0.4 MG/ML INJ IVP PRN (12:06)
[2016-08-19] MEDS ORDERED: Nitroglycerin 0.4 MG TAB.SUBL SL PRN (12:08)
--- NOTE | 2016-08-19 12:28 | Electrocardiograph Report ---
[place] [address] Test Date: 2016-08-19 Pat Name: Saurav Gardner Department: 102 Room: [facility] Gender: M Foreign Language Interpreter: Willie : 1955 Requested By: Austen Lord Order Number: [id number] Reading MD: Agustín Macias MD Measurements Intervals [place] Rate: 70 P: 62 AL: 126 QRS: 26 QRSD: 85 T: 8 QT: 374 QTc: 394 Interpretive Statements SINUS RHYTHM WITH OCCASIONAL SUPRAVENTRICULAR PREMATURE COMPLEXES Electronically Signed On 08-19-2016 12:26:58 EDT by Agustín Macias MD
--- NOTE | 2016-08-19 12:29 | Electrocardiograph Report ---
[place] [id number] Test Date: 2016-08-19 Pat Name: Saurav Gardner Department: 102 Room: [facility] Gender: M Program Director/Music Director: Radha : 1955 Requested By: Sarita Mercedes Order Number: [id number] Reading MD: Agustín Macias MD Measurements Intervals [place] Rate: 64 P: 48 NM: 123 QRS: 15 QRSD: 86 T: 11 QT: 396 QTc: 405 Interpretive Statements SINUS RHYTHM WITH FREQUENT SUPRAVENTRICULAR PREMATURE COMPLEXES Electronically Signed On 08-19-2016 12:28:04 EDT by Agustín Macias MD
[2016-08-19 13:00] LABS: Phosphorous 0.7 mg/dL (2.3-4.7)
[2016-08-19] MEDS ORDERED: Sodium Phosphate 30 MMOL in D5% in Water 100 ML IVPB ONE (13:15)
--- NOTE | 2016-08-19 14:16 | Cardiology Consult Note ---
Date of Encounter: 08/19/16 Time of Encounter: 14:15 Assessment and Plan (1) Intermittent palpitations Current Visit: Yes Status: Acute Per Cardiology: Currently shows sinus rhythm with PACs. Previous Holter evaluated showed frequent PACs with 30 episodes of SVT with longest being 17 beats. Has outpatient pending evaluation by EP. On beta elli. Recent echo showed preserved 65%, no significant valvular dysfunction, no pulmonary hypertension, no segmental wall motion abnormalities. We'll check TSH. Noted to have low phosphorus at 0.07-- recommend further evaluation by primary service. We'll monitor telemetry. Patient encouraged to ambulate the hallway. (2) CAD (coronary artery disease) Current Visit: Yes Status: Chronic Per Cardiology: History of CAD status post PCI of Prox LAD 99% and mid RCA 99% May 2016. On aspirin, Plavix, beta elli. Chest pain-free. Troponin negative. Qualifiers: Coronary Disease-Associated Artery/Lesion type: [place] artery [place] vs. transplanted heart: [place] heart Associated angina: without angina Qualified Code(s): I25.10 - Atherosclerotic heart disease of [place] coronary artery without angina pectoris Discussion w patient/family: The assessment and plan as outlined above was discussed with the patient and/or family members who expressed understanding and agreement. All questions were answered. Thank you for involving us in the care of your patient. Please call with any questions. History of Present Illness Consult date: 08/19/16 Requesting physician: Christopher Jarrell Consult reason: Palpitations Chief complaint: Palps, Fatigue, SOB History of present illness: Mr. Gardner is a 61 year old male with a relevant past mental history of CAD with recent drug-eluting stent to mid RCA May 2016, palpitations, asthma, and hypertension.. Patient last seen by Dr. Carpenter July 2016 with pending referral to Dr. Carlos Mendez for evaluation of palpitations. Patient reports this morning while walking into work he developed episode of palpitations with shortness of breath and fatigue. Reports some mild dizziness; denies any syncope or falls. Reports lasted for about 20-30 minutes. He indicates he was heart rate racing in the 130s when EMS arrived. Reports elevated blood pressure at time of the ems assessment. He reports history of palpitations intermittently for the past 3-4 years, however increased in frequency since stenting in May 2016. He denies excessive caffeine intake. Reports he participates in cardiac rehabilitation with no difficulties. Reports has lost about 25 pounds since stent. He denies any nicotine abuse or alcohol intake. Denies any recent fever, chills, nausea, vomiting, diarrhea, cough. Denies any CP. Reports prior to event no SOB or fatigue. Reports compliance with meds. Past Med Surg Social Fam HX - Past Medical History Attestation: Yes The following information was validated with the patient. Source: patient, old records reviewed Medical history: asthma, coronary artery disease, hypertension Psychiatric history: anxiety - Social History Smoking Status: Never smoker Alcohol use: none Drug use: none - Family History Mother Living Status: Hx Family Cardiac Disorders: Yes Hx Family Psychosocial Disorders: Yes (alheimer's) Father Living Status: Hx Family Cardiac Disorders: Yes Sister Living Status: Hx Family Cancer: Yes (ovarian cancer) Brother Living Status: Cause of : unknown-possibly cardiac related Medications and Allergies Aspirin 81 mg PO DAILY 08/19/16 [History] Clopidogrel [Plavix] 75 mg PO DAILY 08/19/16 [History] Metoprolol Tartrate [Lopressor] 50 mg PO BID 08/19/16 [History] Multivit-Min/FA/Lycopen/Lutein [Centrum Silver Men Tablet] 1 tab PO DAILY [History] Nitroglycerin [Nitrostat] 0.4 mg SL AD PRN 08/19/16 [History] Ubidecarenone/Vit E Acetate [Co Q-10 100 mg Softgel] 100 mg PO DAILY 08/19/16 [ History] Allergies No Known Allergies Allergy (Verified 08/19/16 07:45) All Systems Review: A 10-system review of systems was performed and is negative for pertinent findings except as documented above in the HPI. - Cardiovascular Cardiovascular: as per HPI, dyspnea at rest, irregular heart rhythm, lightheadedness, palpitations Physical Examination Vital Signs, Last 4 Hours Temp Pulse Resp BP Pulse Ox 08/19/16 11:24 98.0 F 56 16 119/75 96 08/19/16 10:29 97.7 F 56 17 132/84 97 General: Conversant, No Apparent Distress HEENT: Atraumatic, Normocephaly, Mucus Membranes Moist Neck: No JVD, Normal carotid pulses Cardiac: Reg Rate and Rhythm, Normal S1 and S2, No Murmur Lungs: Normal Breath Sounds, No Wheeze, Rales, Rhonchi Neuro: Alert and responsive, No focal deficits noted Abdomen: Soft, Non-Tender Skin: No rashes noted on visualized skin Musculoskeletal: No Chest Wall Tenderness Extremities: No Edema, Normal Pulses Results 08/19/16 07:45 08/19/16 07:45 Laboratory Tests 08/19/16 08/19/16 08/19/16 07:45 07:45 07:45 Hgb 18.0 H Hct 51.6 H INR D-Dimer Magnesium 2.0 Troponin I 0.01 B-Natriuretic Peptide 08/19/16 08/19/16 07:45 07:45 Hgb Hct INR 1.3 D-Dimer 253 Magnesium Troponin I B-Natriuretic Peptide 69 ITS Impressions Chest X-Ray 08/19/16 07:29 IMPRESSION: No acute cardiopulmonary disease. D/ / Joe Iverson MD / Joe Iverson MD Interpreting Provider: Joe Iverson MD Active Medications Aspirin (Aspirin) 81 mg PO DAILY [facility] Stop: 02/19/17 09:01 Clopidogrel Bisulfate (Plavix) 75 mg PO DAILY [facility] Stop: 02/19/17 09:01 Sodium Phosphate 30 mmol/ (Dextrose) 110 mls @ 16 mls/hr IVPB ONCE ONE Stop: 08/19/16 20:07 Last Admin: 08/19/16 14:34 Dose: 16 mls/hr Metoprolol Tartrate (Lopressor) 50 mg PO BID [facility] Stop: 02/18/17 12:16 Last Admin: 08/19/16 13:27 Dose: 50 mg Naloxone HCl (Narcan) 0.4 mg IVP Q2MIN PRN PRN Reason: Opioid Reversal Stop: 02/18/17 12:07 Nitroglycerin (Nitroglycerin) 0.4 mg SL AD PRN PRN Reason: Chest Pain Stop: 02/18/17 12:09 - Imaging and Cardiology Echo: report reviewed Cardiac cath: report reviewed Holter: report reviewed - EKG Interpretation EKG results cardiology: personally reviewed (Sinus rhythm with PACs), sinus rhythm, no diagnostic ischemia, other (Holter reviewed and shows sinus bradycardia and sinus rhythm with average heart rate 57, PACs, no significant pauses or events appreciated) Consult Discharge Plan - Plan Referrals: Terrence Murrell MD [Primary Care Provider] -
[2016-08-19 18:10] LABS: Thyroid Stimulating Hormone 2.538 mcIU/mL (0.350-4.840)
[2016-08-20 05:27] LABS: Basophils # 0.1 K/mcL (0.0-0.2); Basophils % 0.6 %; Eosinophils # 0.4 K/mcL (0.0-0.6); Eosinophils % 3.5 %; Hematocrit 51.9 % (37.5-50.1); Hemoglobin 17.4 g/dL (12.9-16.9); Immature Granulocytes % 0.8 % (0-4); Lymphocytes # 4.4 K/mcL (0.6-4.6); Lymphocytes % 38.3 %; Mean Corpuscular HGB Conc 33.5 g/dL (31.6-35.5); Mean Corpuscular Hemoglobin 29.2 pg (28.0-33.3); Mean Corpuscular Volume 87.1 fL (83.0-100.0); Mean Platelet Volume 10.2 fL (9.4-12.4); Monocytes % 8.4 %; Neutrophils # 5.5 K/mcL (1.6-8.9); Platelet Count 154 K/mcL (140-400); Red Blood Count 5.96 M/mcL (4.19-5.50); Red Cell Distribution Width 12.8 % (11.5-14.5); Segmented Neutrophils % 48.4 %
[2016-08-20 05:43] LABS: BUN/Creatinine Ratio 14 (6-26); Blood Urea Nitrogen 14 mg/dL (8-26); Calcium 8.9 mg/dL (8.6-10.8); Carbon Dioxide 27 mEq/L (19-29); Chloride 109 mEq/L (98-109); Glucose 85 mg/dL (70-99); Osmolality,Calculated 294 (280-300); Potassium 3.8 mEq/L (3.5-4.5); Sodium 142 mEq/L (136-145); eGFR For African Americans > 60 (> 60); eGFR For Non-African Americans > 60 (> 60)
[2016-08-20 06:07] LABS: Platelet Estimate Normal (Normal); Reactive Lymphocytes Present (Not Present)
--- NOTE | 2016-08-20 08:33 | Cardiology Progress Note ---
Date of Encounter: 08/20/16 Time of Encounter: 09:00 Assessment and Plan (1) Intermittent palpitations Current Visit: Yes Status: Acute Per Cardiology: 24 hr tele reviewed with avg HR 56, SB-SR with PACs, no afib, no svt, longest pause 1.8 secs, no ventricualr arrhythmias. Recent echo showed preserved 65%, no significant valvular dysfunction, no pulmonary hypertension, no segmental wall motion abnormalities. TSH ok. Previous Holter evaluated showed frequent PACs with 30 episodes of SVT with longest being 17 beats. Has outpatient pending evaluation by EP. On Lopressor 50mg PO BID-- upon discussion with patient and it appears he is only been taking Lopressor 50 mg by mouth daily due to concerns of lower heart rates and blood pressures in the evening. Will decrease Lopressor to 25 mg by mouth twice a day. Patient encouraged to keep a heart rate and blood pressure log. Parameters of when to hold provided. Patient encouraged to take extra dose of Lopressor 25 mg if needed for SVT and as long as heart rate and blood pressure fall within parameters. We'll place 2 week event monitor at discharge the patient will follow-up with Dr. Carlos Mendez in 4 weeks as scheduled. Patient and are agreeable to plan. All questions answered. Cardiology to sign off, reconsult as needed, follow-up scheduled. Noted to have low phosphorus at 0.7-- recommend further evaluation by primary service. (2) CAD (coronary artery disease) Current Visit: Yes Status: Chronic Per Cardiology: History of CAD status post PCI of Prox LAD 99% and mid RCA 99% May 2016. On aspirin, Plavix, beta elli. Chest pain-free. Troponin negative. Qualifiers: Coronary Disease-Associated Artery/Lesion type: [place] artery [place] vs. transplanted heart: [place] heart Associated angina: without angina Qualified Code(s): I25.10 - Atherosclerotic heart disease of [place] coronary artery without angina pectoris Discussion w patient/family: The assessment and plan as outlined above was discussed with the patient and/or family members who expressed understanding and agreement. All questions were answered. Thank you for involving us in the care of your patient. Please call with any questions. Subjective Principal diagnosis: Palps Interval history: Patient denies any concerns or complaints overnight. Denies any further recurrence of palpitations or dizziness. He denies any chest pain or shortness of breath. Objective Selected Entries 08/20/16 04:00 08/20/16 04:18 Temperature 97.3 F L Pulse Rate 55 Respiratory Rate 18 Blood Pressure 127/74 O2 Sat by Pulse Oximetry 98 Oxygen Delivery Method Room Air General: Conversant, No Apparent Distress HEENT: Atraumatic, Normocephaly Cardiac: Reg Rate and Rhythm, Normal S1 and S2, No Murmur Lungs: Normal Breath Sounds, No Wheeze, Rales, Rhonchi Neuro: Alert and responsive, No focal deficits noted Extremities: No Edema Results 08/20/16 04:50 08/20/16 04:50 Lab Results Laboratory Tests 08/19/16 08/19/16 07:45 07:45 Phosphorus 0.7 L* B-Natriuretic Peptide 69 TSH 2.538 Active Medications Aspirin (Aspirin) 81 mg PO DAILY [facility] Stop: 02/19/17 09:01 Clopidogrel Bisulfate (Plavix) 75 mg PO DAILY [facility] Stop: 02/19/17 09:01 Metoprolol Tartrate (Lopressor) 50 mg PO BID [facility] Stop: 02/18/17 12:16 Last Admin: 08/19/16 19:50 Dose: Not Given Naloxone HCl (Narcan) 0.4 mg IVP Q2MIN PRN PRN Reason: Opioid Reversal Stop: 02/18/17 12:07 Nitroglycerin (Nitroglycerin) 0.4 mg SL AD PRN PRN Reason: Chest Pain Stop: 02/18/17 12:09 - EKG Interpretation EKG results cardiology: other (24 hr tele reviewed with avg HR 56, SB-SR with PACs, no afib, no svt, longest pause 1.8 secs, no ventricualr arrhythmias) Consult Discharge Plan - Plan Referrals: Terrence Murrell MD [Primary Care Provider] -
[2016-08-20] MEDS ORDERED: Aspirin 81 MG TAB.CHEW PO SCH (09:00)
[2016-08-20 09:33] LABS: Phosphorous 3.1 mg/dL (2.3-4.7)
[2016-08-20 11:07] VITALS: BP 139/87
--- NOTE | 2016-08-20 13:29 | Discharge Summary ---
<Leonela Carmichael - Last Filed: 08/20/16 13:18> Date of Encounter: 08/20/16 Time of Encounter: 13:31 - Discharge Diagnosis (1) Sinus arrhythmia Priority: Primary Status: Resolved (2) Dyspnea Priority: Primary Status: Resolved Qualifiers: Dyspnea type: unspecified Qualified Code(s): R06.00 - Dyspnea, unspecified (3) Intermittent palpitations Priority: Primary Status: Acute (4) CAD (coronary artery disease) Priority: Secondary Status: Chronic Qualifiers: Coronary Disease-Associated Artery/Lesion type: [place] artery [place] vs. transplanted heart: [place] heart Associated angina: without angina Qualified Code(s): I25.10 - Atherosclerotic heart disease of [place] coronary artery without angina pectoris - Discharge Medications Prescriptions: Metoprolol [Lopressor] 25 mg PO BID #60 tablet Home Medications: Aspirin 81 mg PO DAILY 08/19/16 [History] Clopidogrel [Plavix] 75 mg PO DAILY 08/19/16 [History] Multivit-Min/FA/Lycopen/Lutein [Centrum Silver Men Tablet] 1 tab PO DAILY [History] Nitroglycerin [Nitrostat] 0.4 mg SL AD PRN 08/19/16 [History] Ubidecarenone/Vit E Acetate [Co Q-10 100 mg Softgel] 100 mg PO DAILY 08/19/16 [ History] Metoprolol [Lopressor] 25 mg PO BID #60 tablet 08/20/16 [Rx] Allergies/Adverse Reactions: Allergies No Known Allergies Allergy (Verified 08/19/16 07:45) Procedures/tests Complete & Pending: Procedures Performed prior 72 hours Category Date Time Status ECG 12 lead ECG [ECG] Routine Y 08/19/16 07:47 Completed ECG event monitor 2 weeks [ECG] Routine Y 08/20/16 10:37 Ordered Date of admission: 08/19/16 09:32 Primary care physician: Terrence Murrell MD Consults: 08/19/16 09:37 Consult to Cardiology [CONS] Routine Comment: Colleen Consulting Provider: Oumar Lazcano Reason for Consult: palpitations after stents Time Notified: 09:37 Call Completed: Yes Discharging clinician: Leonela Carmichael Anticipated date of discharge: 08/20/16 - Patient Status Disposition: Home, Self-Care Condition: Good Functional capacity at discharge: independent ambulation Overall status at discharge: patient is back to baseline - Discharge Instructions Follow Up With: Terrence Murrell MD [Primary Care Provider] - 09/08/16 3:00 pm - Diet and Activity Diet: low fat, low cholesterol Interval History: Feels well. Has not had any episodes of palpitations since admission. Denies chest pain, shortness of breath. Hospital course: Mr. Gardner is a 61 year old male admitted to the hospital for palpitations. An EKG was noted to have supraventricular premature complexes. The patient recently (3 months prior) had a heart catheter with stent placement due to 99% blockage. He has been taking his aspirin and Plavix as prescribed. He was prescribed metoprolol 50 mg twice a day but was taking it daily due to concerns of low heart rate and/or blood pressure in the evenings. This was decreased to 25 mg twice a day during this hospitalization. Patient was encouraged to keep a heart rate and blood pressure log. He was educated to take an extra dose of Lopressor if needed for SVT and if heart rate and blood pressure fall within parameters. He is being discharged home with a 2 week event monitor and four- week follow-up with Dr. Carlos Mendez celebrity chef entrepreneur media personality. He is agreeable to this plan. - Time Spent with Patient Total time spent providing and/or coordinating discharge services: - Constitutional Vitals: Temp Pulse Resp BP Pulse Ox 97.8 F 64 16 139/87 97 08/20/16 11:05 08/20/16 11:05 08/20/16 11:05 08/20/16 11:05 08/20/16 11:05 General appearance: Present: A&O X 3, no acute distress <Pierce Wise - Last Filed: 08/20/16 19:33> Date of Encounter: 08/20/16 - Discharge Diagnosis (1) Intermittent palpitations Status: Acute (2) Sinus arrhythmia Priority: Primary Status: Resolved (3) CAD (coronary artery disease) Status: Chronic Qualifiers: Coronary Disease-Associated Artery/Lesion type: [place] artery [place] vs. transplanted heart: [place] heart Associated angina: without angina Qualified Code(s): I25.10 - Atherosclerotic heart disease of [place] coronary artery without angina pectoris Procedures/tests Complete & Pending: Procedures Performed prior 72 hours Category Date Time Status ECG 12 lead ECG [ECG] Routine Y 08/19/16 07:47 Completed ECG event monitor 2 weeks [ECG] Routine Y 08/20/16 10:37 Completed Date of admission: 08/19/16 09:32 Primary care physician: Terrence Murrell MD Consults: 08/19/16 09:37 Consult to Cardiology [CONS] Routine Comment: Colleen Consulting Provider: Cardiology Jaleesa Reason for Consult: palpitations after stents Time Notified: 09:37 Call Completed: Yes Hospital course: Mr. Gardner is a 61 year old male - Time Spent with Patient Total time spent providing and/or coordinating discharge services: - Constitutional Vitals: Temp Pulse Resp BP Pulse Ox 97.8 F 64 16 139/87 97 08/20/16 11:05 08/20/16 11:05 08/20/16 11:05 08/20/16 11:05 08/20/16 11:05 - Attending Attestation I examined this patient and my medical decision-making was reviewed with the Resident Physician on 08/20/16. I agree with the documented findings, disposition and treatment plan as described except to the extent set forth below. Mr. Gardner is feeling OK. He is to be discharged and have 2 week event monitor. Exam Alert. Comfortable Heart reg Plan D/C today and follow up with cardiology.
== END 2016-08-20 14:53 | disposition home or self-care (01) ==
LOC: EMEROO 07:21 → 3NENU 07:21 → EDUNIT# 09:32 → SUATTDRO 09:32 → 3NENU 10:11 → 2NENU 19:21
PROVIDERS: ADMIT Internal Medicine Endocrinology, Diabetes & Metabolism; ATTEND Internal Medicine

== ENCOUNTER 2016-09-12 07:19 | Observation (INO) ==
[2016-09-12] MEDS ORDERED: Nitroglycerin 0.4 MG TAB.SUBL SL ONE (07:32)
[2016-09-12] MEDS ORDERED: Aspirin 81 MG TAB.CHEW PO ONE (07:32)
[2016-09-12] MEDS ORDERED: Ondansetron 4 MG/2 ML VIAL IVP ONE (07:32)
[2016-09-12] MEDS ORDERED: *HR* Morphine 2 MG/ML SYRINGE IVP ONE (07:32)
--- NOTE | 2016-09-12 07:56 | Emergency Department Note ---
Disposition Clinical Impression: Chest pain Qualifiers: Chest pain type: other chest pain Qualified Code(s): R07.89 - Other chest pain Disposition: Admitted As Inpatient Condition: Fair Chest Pain HPI - General Chief Complaint: ED Chest Pain Stated Complaint: chest pain Time Seen by Provider: 09/12/16 07:32 Source: patient, family Mode of arrival: private vehicle Limitations: no limitations Vital Signs Reviewed: Yes Nursing Notes Reviewed: Yes - History of Present Illness Pt complaint: chest pain Onset (ago): week(s) (1) Duration: intermittent, gradually worsening Onset: during rest Pain Location: substernal Severity: mild, moderate, severe, now resolved Quality: aching, similar to prior RI Pain Radiation: none Improves with: nothing Worsens with: nothing Context: other (two stents placed in May of this year. Pain feels like it did when he presented to the ED that day.) Associated symptoms: Reports: nausea, palpitations. Denies: vomiting, diaphoresis, dyspnea, sense of impending doom, syncope, fever, cough, leg swelling Treatments prior to arrival chest pain: aspirin - Related Data On Oral Contraceptives: No Home Medications Medication Instructions Recorded Confirmed Clopidogrel [Plavix] 75 mg PO DAILY 08/19/16 09/12/16 Previous Rx's Medication Instructions Recorded Aspirin 81 mg PO DAILY #30 tab.chew 06/06/16 Nitroglycerin 0.4 mg SL Q5MIN PRN #7 tab.subl 06/06/16 Metoprolol [Lopressor] 25 mg PO BID #60 tablet 08/20/16 Allergies Allergy/AdvReac Type Severity Reaction Status Date / Time No Known Allergies Allergy Verified 09/12/16 09:29 All systems ED: reviewed and negative except as stated. Constitutional: Denies: fever, chills, weakness, weight change, night sweats Eyes: Denies: vision change ENT ED: Denies: throat pain, congestion, dysphagia Cardiovascular: Reports: as per HPI, chest pain, palpitations. Denies: dyspnea on exertion, orthopnea, edema, syncope, paroxysmal nocturnal dyspnea Respiratory: Denies: cough, dyspnea, wheezes, hemoptysis, stridor, sputum production Gastrointestinal: Reports: as per HPI, nausea. Denies: abdominal pain, vomiting , diarrhea, constipation Musculoskeletal: Denies: back pain, neck pain, joint swelling, arthralgia, myalgia Integumentary: Denies: rash, abrasion, lesions Neurological: Denies: headache, weakness, numbness, paresthesias, confusion, abnormal gait, vertigo Hematological/Lymphatic: Denies: easy bleeding, easy bruising Chest Pain PMH - Past Medical History Medical history: Reports: arthritis, atrial fibrillation, cancer, coronary artery disease, GERD, hyperlipidemia, hypertension Surgical history: Reports: angioplasty/stent (Proximal LAD and RCA; May 2016), other Psychiatric history: Reports: no psych history Prior Cardiac Testing/Procedures: Stenting - Social History Smoking Status: Never smoker Alcohol use: Reports: none Drug use: Reports: none Physical Exam - General Limitations: no limitations General appearance: alert, in no apparent distress - Head Head exam: atraumatic, normocephalic, normal inspection - Eye Eye exam: Present: normal appearance, PERRL. Absent: scleral icterus, conjunctival injection, periorbital swelling - ENT ENT exam: mucous membranes moist - Neck Neck exam: Present: normal inspection, full ROM, trachea midline. Absent: tenderness - Chest Chest inspection: Present: normal inspection, symmetric chest wall rise. Absent : tenderness, rash - Respiratory Respiratory exam: Present: normal lung sounds bilaterally. Absent: respiratory distress, wheezes, stridor, accessory muscle use - Cardiovascular Cardiovascular exam: Present: regular rate, irregular rhythm - Abdominal Exam Abdominal exam: Present: soft, Non-Tender. Absent: distention, guarding, rebound, rigidity - Extremities Exam Extremities exam: Present: normal inspection, full ROM, normal capillary refill. Absent: tenderness, pedal edema - Back Exam Back exam: Present: normal inspection. Absent: tenderness - Neurological Exam Neurological exam: Present: alert, oriented X3, CN II-XII intact, normal gait - Psychiatric Psychiatric exam: Present: normal affect, normal mood - Skin Skin exam: Present: warm, dry, intact, normal color Course Vital Signs Temperature 97.6 F 09/12/16 07:25 Pulse Rate 69 09/12/16 07:25 Respiratory Rate 20 09/12/16 07:25 Blood Pressure 160/97 09/12/16 07:25 O2 Sat by Pulse Oximetry 96 09/12/16 07:25 Temperature 97.6 F 09/12/16 15:25 Pulse Rate 70 09/12/16 15:25 Respiratory Rate 16 09/12/16 15:25 Blood Pressure 149/86 09/12/16 15:25 O2 Sat by Pulse Oximetry 98 09/12/16 15:25 Oxygen Delivery Oxygen Delivery Nasal Cannula Chest Pain - Medical Records Medical records reviewed: Yes I reviewed the patient's medical records. Laboratory Last Values WBC 10.3 K/mcL (4.3-11.1) 09/12/16 07:57 RBC 5.95 M/mcL (4.19-5.50) H 09/12/16 07:57 Hgb 17.7 g/dL (12.9-16.9) H 09/12/16 07:57 Hct 51.1 % (37.5-50.1) H 09/12/16 07:57 MCV 85.9 fL (83.0-100.0) 09/12/16 07:57 MCH 29.7 pg (28.0-33.3) 09/12/16 07:57 MCHC 34.6 g/dL (31.6-35.5) 09/12/16 07:57 RDW 12.8 % (11.5-14.5) 09/12/16 07:57 Plt Count 170 K/mcL (140-400) 09/12/16 07:57 MPV 10.4 fL (9.4-12.4) 09/12/16 07:57 Immature Gran % 0.9 % (0-4) 09/12/16 07:57 Seg Neutrophils % 55.2 % 09/12/16 07:57 Lymphocytes % 30.5 % 09/12/16 07:57 Monocytes % 8.8 % 09/12/16 07:57 Eosinophils % 4.0 % 09/12/16 07:57 Basophils % 0.6 % 09/12/16 07:57 Neutrophils # 5.7 K/mcL (1.6-8.9) 09/12/16 07:57 Lymphocytes # 3.1 K/mcL (0.6-4.6) 09/12/16 07:57 Monocytes # 0.9 K/mcL (0.0-1.3) 09/12/16 07:57 Eosinophils # 0.4 K/mcL (0.0-0.6) 09/12/16 07:57 Basophils # 0.1 K/mcL (0.0-0.2) 09/12/16 07:57 PT 13.6 Seconds (9.4-12.1) H 09/12/16 07:57 INR 1.3 09/12/16 07:57 APTT 32.7 Seconds (26.0-36.0) 09/12/16 07:57 D-Dimer 236 ng/mLFEU (0-500) 09/12/16 07:57 Sodium 139 mEq/L (136-145) 09/12/16 07:57 Potassium 3.6 mEq/L (3.5-4.5) 09/12/16 07:57 Chloride 108 mEq/L (98-109) 09/12/16 07:57 Carbon Dioxide 23 mEq/L (19-29) 09/12/16 07:57 BUN 16 mg/dL (8-26) 09/12/16 07:57 Creatinine 1.01 mg/dL (0.72-1.25) 09/12/16 07:57 Est GFR ( Amer) > 60 (> 60) 09/12/16 07:57 Est GFR (Non-Af Amer) > 60 (> 60) 09/12/16 07:57 BUN/Creatinine Ratio 16 (6-26) 09/12/16 07:57 Glucose 142 mg/dL (70-99) H 09/12/16 07:57 Calculated Osmolality 292 (280-300) 09/12/16 07:57 Calcium 9.1 mg/dL (8.6-10.8) 09/12/16 07:57 Total Bilirubin 1.1 mg/dL (0.2-1.2) 09/12/16 07:57 Direct Bilirubin 0.4 mg/dL (0.0-0.5) 09/12/16 07:57 Indirect Bilirubin 0.7 mg/dL (0.0-1.2) 09/12/16 07:57 AST 19 Units/L (5-34) 09/12/16 07:57 ALT 26 Units/L (0-55) 09/12/16 07:57 Alkaline Phosphatase 55 Units/L (38-126) 09/12/16 07:57 Troponin I 0.01 ng/mL (0-0.03) 09/12/16 07:57 B-Natriuretic Peptide 50 pg/mL (0-100) 09/12/16 07:57 Serum Total Protein 6.7 g/dL (6.0-8.3) 09/12/16 07:57 Albumin 3.6 g/dL (3.5-5.0) 09/12/16 07:57 Globulin 3.1 g/dL (2.4-3.5) 09/12/16 07:57 Albumin/Globulin Ratio 1.2 (1.1-2.2) 09/12/16 07:57 Lipase 22 Units/L (8-78) 09/12/16 07:57 - Lab Data Lab results reviewed: Yes I reviewed the patient's lab results. Lab results narrative: Laboratory Last Values WBC 10.3 K/mcL (4.3-11.1) 09/12/16 07:57 RBC 5.95 M/mcL (4.19-5.50) H 09/12/16 07:57 Hgb 17.7 g/dL (12.9-16.9) H 09/12/16 07:57 Hct 51.1 % (37.5-50.1) H 09/12/16 07:57 MCV 85.9 fL (83.0-100.0) 09/12/16 07:57 MCH 29.7 pg (28.0-33.3) 09/12/16 07:57 MCHC 34.6 g/dL (31.6-35.5) 09/12/16 07:57 RDW 12.8 % (11.5-14.5) 09/12/16 07:57 Plt Count 170 K/mcL (140-400) 09/12/16 07:57 MPV 10.4 fL (9.4-12.4) 09/12/16 07:57 Immature Gran % 0.9 % (0-4) 09/12/16 07:57 Seg Neutrophils % 55.2 % 09/12/16 07:57 Lymphocytes % 30.5 % 09/12/16 07:57 Monocytes % 8.8 % 09/12/16 07:57 Eosinophils % 4.0 % 09/12/16 07:57 Basophils % 0.6 % 09/12/16 07:57 Neutrophils # 5.7 K/mcL (1.6-8.9) 09/12/16 07:57 Lymphocytes # 3.1 K/mcL (0.6-4.6) 09/12/16 07:57 Monocytes # 0.9 K/mcL (0.0-1.3) 09/12/16 07:57 Eosinophils # 0.4 K/mcL (0.0-0.6) 09/12/16 07:57 Basophils # 0.1 K/mcL (0.0-0.2) 09/12/16 07:57 PT 13.6 Seconds (9.4-12.1) H 09/12/16 07:57 INR 1.3 09/12/16 07:57 APTT 32.7 Seconds (26.0-36.0) 09/12/16 07:57 D-Dimer 236 ng/mLFEU (0-500) 09/12/16 07:57 Sodium 139 mEq/L (136-145) 09/12/16 07:57 Potassium 3.6 mEq/L (3.5-4.5) 09/12/16 07:57 Chloride 108 mEq/L (98-109) 09/12/16 07:57 Carbon Dioxide 23 mEq/L (19-29) 09/12/16 07:57 BUN 16 mg/dL (8-26) 09/12/16 07:57 Creatinine 1.01 mg/dL (0.72-1.25) 09/12/16 07:57 Est GFR ( Amer) > 60 (> 60) 09/12/16 07:57 Est GFR (Non-Af Amer) > 60 (> 60) 09/12/16 07:57 BUN/Creatinine Ratio 16 (6-26) 09/12/16 07:57 Glucose 142 mg/dL (70-99) H 09/12/16 07:57 Calculated Osmolality 292 (280-300) 09/12/16 07:57 Calcium 9.1 mg/dL (8.6-10.8) 09/12/16 07:57 Total Bilirubin 1.1 mg/dL (0.2-1.2) 09/12/16 07:57 Direct Bilirubin 0.4 mg/dL (0.0-0.5) 09/12/16 07:57 Indirect Bilirubin 0.7 mg/dL (0.0-1.2) 09/12/16 07:57 AST 19 Units/L (5-34) 09/12/16 07:57 ALT 26 Units/L (0-55) 09/12/16 07:57 Alkaline Phosphatase 55 Units/L (38-126) 09/12/16 07:57 Troponin I 0.01 ng/mL (0-0.03) 09/12/16 07:57 B-Natriuretic Peptide 50 pg/mL (0-100) 09/12/16 07:57 Serum Total Protein 6.7 g/dL (6.0-8.3) 09/12/16 07:57 Albumin 3.6 g/dL (3.5-5.0) 09/12/16 07:57 Globulin 3.1 g/dL (2.4-3.5) 09/12/16 07:57 Albumin/Globulin Ratio 1.2 (1.1-2.2) 09/12/16 07:57 Lipase 22 Units/L (8-78) 09/12/16 07:57 Result diagrams: 09/12/16 07:57 09/12/16 07:57 Lab Results 09/12/16 09/12/16 09/12/16 Range/Units 07:57 07:57 07:57 WBC 10.3 (4.3-11.1) K/mcL RBC 5.95 H (4.19-5.50) M/mcL Hgb 17.7 H (12.9-16.9) g/dL Hct 51.1 H (37.5-50.1) % MCV 85.9 (83.0-100.0) fL MCH 29.7 (28.0-33.3) pg MCHC 34.6 (31.6-35.5) g/dL RDW 12.8 (11.5-14.5) % Plt Count 170 (140-400) K/mcL MPV 10.4 (9.4-12.4) fL Immature Gran % 0.9 (0-4) % Seg Neutrophils % 55.2 % Lymphocytes % 30.5 % Monocytes % 8.8 % Eosinophils % 4.0 % Basophils % 0.6 % Neutrophils # 5.7 (1.6-8.9) K/mcL Lymphocytes # 3.1 (0.6-4.6) K/mcL Monocytes # 0.9 (0.0-1.3) K/mcL Eosinophils # 0.4 (0.0-0.6) K/mcL Basophils # 0.1 (0.0-0.2) K/mcL PT 13.6 H (9.4-12.1) Seconds INR 1.3 APTT 32.7 (26.0-36.0) Seconds D-Dimer 236 (0-500) ng/mLFEU Sodium (136-145) mEq/L Potassium (3.5-4.5) mEq/L Chloride (98-109) mEq/L Carbon Dioxide (19-29) mEq/L BUN (8-26) mg/dL Creatinine (0.72-1.25) mg/dL Est GFR ( Amer) (> 60) Est GFR (Non-Af Amer) (> 60) BUN/Creatinine Ratio (6-26) Glucose (70-99) mg/dL Calculated Osmolality (280-300) Calcium (8.6-10.8) mg/dL Phosphorus (2.3-4.7) mg/dL Total Bilirubin (0.2-1.2) mg/dL Direct Bilirubin (0.0-0.5) mg/dL Indirect Bilirubin (0.0-1.2) mg/dL AST (5-34) Units/L ALT (0-55) Units/L Alkaline Phosphatase (38-126) Units/L Troponin I (0-0.03) ng/mL B-Natriuretic Peptide 50 (0-100) pg/mL Serum Total Protein (6.0-8.3) g/dL Albumin (3.5-5.0) g/dL Globulin (2.4-3.5) g/dL Albumin/Globulin Ratio (1.1-2.2) Lipase (8-78) Units/L 09/12/16 09/12/16 Range/Units 07:57 07:57 WBC (4.3-11.1) K/mcL RBC (4.19-5.50) M/mcL Hgb (12.9-16.9) g/dL Hct (37.5-50.1) % MCV (83.0-100.0) fL MCH (28.0-33.3) pg MCHC (31.6-35.5) g/dL RDW (11.5-14.5) % Plt Count (140-400) K/mcL MPV (9.4-12.4) fL Immature Gran % (0-4) % Seg Neutrophils % % Lymphocytes % % Monocytes % % Eosinophils % % Basophils % % Neutrophils # (1.6-8.9) K/mcL Lymphocytes # (0.6-4.6) K/mcL Monocytes # (0.0-1.3) K/mcL Eosinophils # (0.0-0.6) K/mcL Basophils # (0.0-0.2) K/mcL PT (9.4-12.1) Seconds INR APTT (26.0-36.0) Seconds D-Dimer (0-500) ng/mLFEU Sodium 139 (136-145) mEq/L Potassium 3.6 (3.5-4.5) mEq/L Chloride 108 (98-109) mEq/L Carbon Dioxide 23 (19-29) mEq/L BUN 16 (8-26) mg/dL Creatinine 1.01 (0.72-1.25) mg/dL Est GFR ( Amer) > 60 (> 60) Est GFR (Non-Af Amer) > 60 (> 60) BUN/Creatinine Ratio 16 (6-26) Glucose 142 H (70-99) mg/dL Calculated Osmolality 292 (280-300) Calcium 9.1 (8.6-10.8) mg/dL Phosphorus 2.1 L (2.3-4.7) mg/dL Total Bilirubin 1.1 (0.2-1.2) mg/dL Direct Bilirubin 0.4 (0.0-0.5) mg/dL Indirect Bilirubin 0.7 (0.0-1.2) mg/dL AST 19 (5-34) Units/L ALT 26 (0-55) Units/L Alkaline Phosphatase 55 (38-126) Units/L Troponin I 0.01 (0-0.03) ng/mL B-Natriuretic Peptide (0-100) pg/mL Serum Total Protein 6.7 (6.0-8.3) g/dL Albumin 3.6 (3.5-5.0) g/dL Globulin 3.1 (2.4-3.5) g/dL Albumin/Globulin Ratio 1.2 (1.1-2.2) Lipase 22 (8-78) Units/L - Radiology Data Radiology results reviewed: Yes I reviewed the patient's radiology results. Chest X-Ray 09/12/16 07:33 IMPRESSION: No acute cardiopulmonary disease. D/ / 09/12/2016 08:14:38 Victor Hugo Burrell MD / michele Interpreting Provider: Victor Hugo Burrell MD - EKG Data EKG attestation: Yes I reviewed and interpreted this EKG. EKG shows normal: sinus rhythm Rate: normal Rhythm: arrhythmia, PAC's [place]/QRS: normal T wave inversions noted in: aVF, v5 (t wave inversions are new c/w 08/05/16) When compared to previous EKG there are: changes noted Interpretation: nonspecific ST-T wave changes Heart Score - Score History: Highly Suspicious EKG: Non Specific repolarisation Disturbance Age: 45-65 Risk Factors: Equal/Greater than 3 risk factor or history of atherosclerotic disease Troponin: Less than normal limit HEART Score Total: 6
[2016-09-12 08:09] LABS: INR 1.3; Prothrombin Time 13.6 Seconds (9.4-12.1)
[2016-09-12 08:11] LABS: Activated Partial Thrombo Time 32.7 Seconds (26.0-36.0)
[2016-09-12 08:13] LABS: Basophils # 0.1 K/mcL (0.0-0.2); Basophils % 0.6 %; Eosinophils # 0.4 K/mcL (0.0-0.6); Hematocrit 51.1 % (37.5-50.1); Hemoglobin 17.7 g/dL (12.9-16.9); Immature Granulocytes % 0.9 % (0-4); Lymphocytes # 3.1 K/mcL (0.6-4.6); Lymphocytes % 30.5 %; Mean Corpuscular HGB Conc 34.6 g/dL (31.6-35.5); Mean Corpuscular Hemoglobin 29.7 pg (28.0-33.3); Mean Corpuscular Volume 85.9 fL (83.0-100.0); Mean Platelet Volume 10.4 fL (9.4-12.4); Monocytes # 0.9 K/mcL (0.0-1.3); Monocytes % 8.8 %; Neutrophils # 5.7 K/mcL (1.6-8.9); Platelet Count 170 K/mcL (140-400); Red Blood Count 5.95 M/mcL (4.19-5.50); Red Cell Distribution Width 12.8 % (11.5-14.5); Segmented Neutrophils % 55.2 %
[2016-09-12 08:20] LABS: Alanine Aminotransferase 26 Units/L (0-55); Albumin 3.6 g/dL (3.5-5.0); Albumin/Globulin Ratio 1.2 (1.1-2.2); Alkaline Phosphatase 55 Units/L (38-126); Aspartate Amino Transferase 19 Units/L (5-34); BUN/Creatinine Ratio 16 (6-26); Bilirubin,Direct 0.4 mg/dL (0.0-0.5); Bilirubin,Indirect 0.7 mg/dL (0.0-1.2); Bilirubin,Total 1.1 mg/dL (0.2-1.2); Blood Urea Nitrogen 16 mg/dL (8-26); Calcium 9.1 mg/dL (8.6-10.8); Carbon Dioxide 23 mEq/L (19-29); Chloride 108 mEq/L (98-109); Globulin 3.1 g/dL (2.4-3.5); Glucose 142 mg/dL (70-99); Lipase 22 Units/L (8-78); Osmolality,Calculated 292 (280-300); Potassium 3.6 mEq/L (3.5-4.5); Sodium 139 mEq/L (136-145); Total Protein 6.7 g/dL (6.0-8.3); eGFR For African Americans > 60 (> 60); eGFR For Non-African Americans > 60 (> 60)
--- NOTE | 2016-09-12 09:24 | Emergency Department Note ---
Disposition Clinical Impression: Chest pain Qualifiers: Chest pain type: precordial pain Qualified Code(s): R07.2 - Precordial pain Disposition: Admitted As Inpatient Condition: Fair Referrals: Handy,Terrence Chatterjee MD [Primary Care Provider] - Forms: ED Satisfaction Letter General Adult HPI - General Chief complaint: ED Chest Pain Stated complaint: chest pain Time Seen by Provider: 09/12/16 07:32 Source: patient, family Mode of arrival: private vehicle Limitations: no limitations - History of Present Illness Pain Scale: 1 - Related Data Home Medications Medication Instructions Recorded Confirmed Metoprolol [Lopressor] 50 mg PO BID 06/04/16 07/21/16 Aspirin 81 mg PO DAILY 08/19/16 08/19/16 Clopidogrel [Plavix] 75 mg PO DAILY 08/19/16 08/19/16 Multivit-Min/FA/Lycopen/Lutein 1 tab PO DAILY 08/19/16 08/19/16 [Centrum Silver Men Tablet] Nitroglycerin [Nitrostat] 0.4 mg SL AD PRN 08/19/16 08/19/16 Ubidecarenone/Vit E Acetate [Co 100 mg PO DAILY 08/19/16 08/19/16 Q-10 100 mg Softgel] Previous Rx's Medication Instructions Recorded Aspirin 81 mg PO DAILY #30 tab.chew 06/06/16 Atorvastatin [Lipitor] 80 mg PO HS #60 tablet 06/06/16 Clopidogrel [Plavix] 75 mg PO DAILY #30 tablet 06/06/16 Nitroglycerin 0.4 mg SL Q5MIN PRN #7 tab.subl 06/06/16 Metoprolol [Lopressor] 25 mg PO BID #60 tablet 08/20/16 Allergies Allergy/AdvReac Type Severity Reaction Status Date / Time No Known Allergies Allergy Unverified 08/19/16 07:45 Constitutional: Denies: fever, chills, weakness, weight change, night sweats Eyes: Denies: vision change ENT ED: Denies: throat pain, congestion, dysphagia Cardiovascular: Reports: as per HPI, chest pain, palpitations. Denies: dyspnea on exertion, orthopnea, edema, syncope, paroxysmal nocturnal dyspnea Respiratory: Denies: cough, dyspnea, wheezes, hemoptysis, stridor, sputum production Gastrointestinal: Reports: as per HPI, nausea. Denies: abdominal pain, vomiting , diarrhea, constipation Musculoskeletal: Denies: back pain, neck pain, joint swelling, arthralgia, myalgia Integumentary: Denies: rash, abrasion, lesions Neurological: Denies: headache, weakness, numbness, paresthesias, confusion, abnormal gait, vertigo Hematological/Lymphatic: Denies: easy bleeding, easy bruising Past Medical History - Past Medical History Medical history: Reports: arthritis, atrial fibrillation, cancer, coronary artery disease, GERD, hyperlipidemia, hypertension Surgical history: Reports: angioplasty/stent (Proximal LAD and RCA; May 2016), other Psychiatric history: Reports: no psych history - Social History Smoking Status: Never smoker Smokeless Tobacco Status: No Alcohol use: Reports: none Drug use: Reports: none Physical Exam - General Limitations: no limitations General appearance: alert, in no apparent distress Course Vital Signs Temperature 97.6 F 09/12/16 07:25 Pulse Rate 69 09/12/16 07:25 Respiratory Rate 20 09/12/16 07:25 Blood Pressure 160/97 09/12/16 07:25 O2 Sat by Pulse Oximetry 96 09/12/16 07:25 Temperature 97.6 F 09/12/16 07:25 Pulse Rate 64 09/12/16 07:38 Respiratory Rate 16 09/12/16 07:38 Blood Pressure 145/80 09/12/16 07:38 O2 Sat by Pulse Oximetry 99 09/12/16 07:38 Oxygen Delivery Oxygen Delivery Nasal Cannula Medical Decision Making - Lab Data Result diagrams: 09/12/16 07:57 09/12/16 07:57 Lab Results 09/12/16 09/12/16 09/12/16 Range/Units 07:57 07:57 07:57 WBC 10.3 (4.3-11.1) K/mcL RBC 5.95 H (4.19-5.50) M/mcL Hgb 17.7 H (12.9-16.9) g/dL Hct 51.1 H (37.5-50.1) % MCV 85.9 (83.0-100.0) fL MCH 29.7 (28.0-33.3) pg MCHC 34.6 (31.6-35.5) g/dL RDW 12.8 (11.5-14.5) % Plt Count 170 (140-400) K/mcL MPV 10.4 (9.4-12.4) fL Immature Gran % 0.9 (0-4) % Seg Neutrophils % 55.2 % Lymphocytes % 30.5 % Monocytes % 8.8 % Eosinophils % 4.0 % Basophils % 0.6 % Neutrophils # 5.7 (1.6-8.9) K/mcL Lymphocytes # 3.1 (0.6-4.6) K/mcL Monocytes # 0.9 (0.0-1.3) K/mcL Eosinophils # 0.4 (0.0-0.6) K/mcL Basophils # 0.1 (0.0-0.2) K/mcL PT 13.6 H (9.4-12.1) Seconds INR 1.3 APTT 32.7 (26.0-36.0) Seconds D-Dimer 236 (0-500) ng/mLFEU Sodium (136-145) mEq/L Potassium (3.5-4.5) mEq/L Chloride (98-109) mEq/L Carbon Dioxide (19-29) mEq/L BUN (8-26) mg/dL Creatinine (0.72-1.25) mg/dL Est GFR ( Amer) (> 60) Est GFR (Non-Af Amer) (> 60) BUN/Creatinine Ratio (6-26) Glucose (70-99) mg/dL Calculated Osmolality (280-300) Calcium (8.6-10.8) mg/dL Total Bilirubin (0.2-1.2) mg/dL Direct Bilirubin (0.0-0.5) mg/dL Indirect Bilirubin (0.0-1.2) mg/dL AST (5-34) Units/L ALT (0-55) Units/L Alkaline Phosphatase (38-126) Units/L Troponin I (0-0.03) ng/mL B-Natriuretic Peptide 50 (0-100) pg/mL Serum Total Protein (6.0-8.3) g/dL Albumin (3.5-5.0) g/dL Globulin (2.4-3.5) g/dL Albumin/Globulin Ratio (1.1-2.2) Lipase (8-78) Units/L 09/12/16 09/12/16 Range/Units 07:57 07:57 WBC (4.3-11.1) K/mcL RBC (4.19-5.50) M/mcL Hgb (12.9-16.9) g/dL Hct (37.5-50.1) % MCV (83.0-100.0) fL MCH (28.0-33.3) pg MCHC (31.6-35.5) g/dL RDW (11.5-14.5) % Plt Count (140-400) K/mcL MPV (9.4-12.4) fL Immature Gran % (0-4) % Seg Neutrophils % % Lymphocytes % % Monocytes % % Eosinophils % % Basophils % % Neutrophils # (1.6-8.9) K/mcL Lymphocytes # (0.6-4.6) K/mcL Monocytes # (0.0-1.3) K/mcL Eosinophils # (0.0-0.6) K/mcL Basophils # (0.0-0.2) K/mcL PT (9.4-12.1) Seconds INR APTT (26.0-36.0) Seconds D-Dimer (0-500) ng/mLFEU Sodium 139 (136-145) mEq/L Potassium 3.6 (3.5-4.5) mEq/L Chloride 108 (98-109) mEq/L Carbon Dioxide 23 (19-29) mEq/L BUN 16 (8-26) mg/dL Creatinine 1.01 (0.72-1.25) mg/dL Est GFR ( Amer) > 60 (> 60) Est GFR (Non-Af Amer) > 60 (> 60) BUN/Creatinine Ratio 16 (6-26) Glucose 142 H (70-99) mg/dL Calculated Osmolality 292 (280-300) Calcium 9.1 (8.6-10.8) mg/dL Total Bilirubin 1.1 (0.2-1.2) mg/dL Direct Bilirubin 0.4 (0.0-0.5) mg/dL Indirect Bilirubin 0.7 (0.0-1.2) mg/dL AST 19 (5-34) Units/L ALT 26 (0-55) Units/L Alkaline Phosphatase 55 (38-126) Units/L Troponin I 0.01 (0-0.03) ng/mL B-Natriuretic Peptide (0-100) pg/mL Serum Total Protein 6.7 (6.0-8.3) g/dL Albumin 3.6 (3.5-5.0) g/dL Globulin 3.1 (2.4-3.5) g/dL Albumin/Globulin Ratio 1.2 (1.1-2.2) Lipase 22 (8-78) Units/L Attestation Statement - Attestation Attestation: For this encounter, I have reviewed the VISITOR SERVICES SPECIALIST or PA documentation, treatment plan, and medical decision making; and I have had face to face time with this patient. 61-year-old with history of coronary artery disease and stents in May comes in with some intermittent chest pain. Physical exam the lungs are clear abdomen is soft. EKG shows no acute change troponin is negative patient will be admitted for further evaluation and treatment.
[2016-09-12] MEDS ORDERED: Ondansetron ODT 4 MG TAB.RAPDIS SL PRN (10:35)
[2016-09-12] MEDS ORDERED: Naloxone 0.4 MG/ML INJ IVP PRN (10:35)
[2016-09-12] MEDS ORDERED: Nitroglycerin 0.4 MG TAB.SUBL SL PRN (10:47)
[2016-09-12 11:02] LABS: Phosphorous 2.1 mg/dL (2.3-4.7)
--- NOTE | 2016-09-12 11:03 | Internal Med History&Physical ---
<RaulRomán Garcia - Last Filed: 09/12/16 12:17> Date of Encounter: 09/12/16 Time of Encounter: 10:00 Assessment and Plan (1) Chest pain Current visit: Yes Status: Acute Assess: Mr. Gardner is a 61 year old male who presents from the ED with the chief complaint of chest pain. The patient reports he has been having chest pain for the past 10 days and it has become increasingly worse in intensity. He states he has been experiencing mild shortness of breath and diaphoresis occasionally. He also reports last week he had bilateral edema of his lower extremities. Patient reports he has feelings of palpitations in his chest as well as a burning sensation located in the middle of his upper chest. Jj reports he is lightheaded every day. He denies nausea, vomiting, cough, syncope, numbness , tingling, and radiation of chest pain to arm or neck. Plan: Trend troponins x2 Continuous cardiac monitoring ordered Lipid panel ordered Repeat BNP Phosphorus level ordered Continue Lopressor Continue low-dose aspirin therapy Continue Plavix Continue Nitroglycerin PRN Cardiac diet ordered Cardiology consult to be placed based on results of troponin trend Monitor patient's vital signs Qualifiers: Chest pain type: other chest pain Qualified Code(s): R07.89 - Other chest pain; R07.8 - Other chest pain (2) CAD (coronary artery disease) Current visit: Yes Status: Chronic Assess: Patient presents with history of chronic CAD. The patient reports he has been having chest pain for the past 10 days and it has become increasingly worse in intensity. He states he has been experiencing mild shortness of breath and diaphoresis occasionally. He also reports last week he had bilateral edema of his lower extremities. Patient reports he has feelings of palpitations in his chest as well as a burning sensation located in the middle of his upper chest. Jj reports he is lightheaded every day. He denies nausea, vomiting, cough , syncope, numbness, tingling, and radiation of chest pain to arm or neck. Plan: Trend troponins x2 Continuous cardiac monitoring ordered Lipid panel ordered Phosphorus level ordered Repeat labs Continue Lopressor Continue low-dose aspirin therapy Continue Plavix Continue Nitroglycerin PRN Cardiac diet ordered Cardiology consult to be placed based on results of troponin trend Monitor patient's vital signs Qualifiers: Coronary Disease-Associated Artery/Lesion type: [place] artery [place] vs. transplanted heart: [place] heart Associated angina: without angina Qualified Code(s): I25.10 - Atherosclerotic heart disease of [place] coronary artery without angina pectoris (3) Sinus arrhythmia Current visit: Yes Status: Chronic Assess: Patient presents with history of chronic sinus arrhythmia. Plan: ECHO Doppler results of 08/06/16 reviewed Repeat EKG Continuous cardiac monitoring ordered Continue Plavix Continue low-dose aspirin therapy Continue Nitroglycerin PRN Cardiac consult to be ordered if Troponins are elevated Monitor patient's vital signs (4) Hypertension Current visit: Yes Status: Chronic Assess: Patient presents with history of chronic hypertension. Plan: Continue patient's Lopressor Continuous vital signs ordered Monitor patient Qualifiers: Hypertension type: essential hypertension Qualified Code(s): I10 - Essential (primary) hypertension (5) Hyperlipidemia Current visit: Yes Status: Chronic Assess: Patient presents with history of chronic hyperlipidemia. Plan: Lipid panel ordered Patient states he has prescription for Lipitor but does not take. Will address this based on lipid panel results. Qualifiers: Hyperlipidemia type: unspecified Qualified Code(s): E78.5 - Hyperlipidemia , unspecified (6) GERD (gastroesophageal reflux disease) Current visit: Yes Status: Chronic Assess: Patient presents with history of chronic GERD. Plan: Protonix 40 mg IVP daily ordered Patient educated on benefits of not eating after 19:00 and eating a diet low in acidic foods Monitor patient's report of centralized burning pain in upper chest while inpatient Qualifiers: Esophagitis presence: esophagitis presence not specified Qualified Code(s) : K21.9 - Gastro-esophageal reflux disease without esophagitis (7) DVT prophylaxis Current visit: Yes Status: Acute Assess: Patient placed on DVT prophylaxis due to current sinus arrhythmia and inpatient status. Plan: Heparin 5,000 units SQ Q12 ordered Continue low-dose aspirin therapy Continue Plavix Ambulate BID ordered with assist if necessary Internal Medicine - H&P: HPI Chief complaint: Chest pain Admitted From: Emergency Dept Plans for Post Hospital Care: Home History of present illness: Mr. Gardner is a 61 year old male who presents from the ED with the chief complaint of chest pain. The patient reports he has been having chest pain for the past 10 days and it has become increasingly worse in intensity. He states he has been experiencing mild shortness of breath and diaphoresis occasionally. He also reports last week he had bilateral edema of his lower extremities. Patient reports he has feelings of palpitations in his chest as well as a burning sensation located in the middle of his upper chest. Jj reports he is lightheaded every day. He denies nausea, vomiting, cough, syncope, numbness , tingling, and radiation of chest pain to arm or neck. Mr. Gardner has a history of arthritis, atrial fibrillation, skin cancer (see notes), coronary artery disease, GERD, hyperlipidemia, and hypertension. Patient had a heart catheterization with stent placement in the proximal LAD and RCA on 06/06/2016. He reports both locations were 99% blocked. Patient is to be placed in observation status with continuous cardiac monitoring, continuous pulse oximetry , and trending troponins 2. Cardiology consult will be considered based on results of troponins. Possibility of GERD must be considered based on patient' s description of centralized pain in upper chest and burning sensation. Protonix IVP ordered daily for this. Current and previous EKGs, CXRs, and ECHO Doppler reports reviewed (see results section for impressions). Patient states that he has an appointment scheduled with Dr. Mendez on September 15. DVT prophylaxis ordered. Past Med Surg Social Fam HX - Past Medical History Medical history: arthritis, atrial fibrillation, cancer (Patient reports he had skin cancer dx of his left cheek 7 years ago which has resolved. 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 and required surgery with chemotherapy paste placement 20 years ago.), coronary artery disease, GERD , hyperlipidemia, hypertension Psychiatric history: no psych history - Past Surgical History Surgical History: angioplasty/stent (June 06, 2016 with stent placement in the proximal LAD and RCA (both 99% occluded)), other (Surgical intervention for tumor of the left cheek 20 years ago) - Social History Smoking Status: Never smoker Smokeless Tobacco Status: No Alcohol use: none Drug use: none Occupational status: previously employed Current living situation: Home, With Family Activity Level: Independent ambulation, Very active Recent Out of Country Travel Within the Last 8 Weeks: No Exposure or Possible Exposure to Illness During Travel: No - Family History Mother Race: Family Member Ethnicity: Non- Living Status: Hx Family Cardiac Disorders: Yes (Angina) Hx Family Neurologic Disorders: Yes (Alzheimer's disease) Father Race: Family Member Ethnicity: Non- Living Status: Hx Family Cardiac Disorders: Yes (self, mother) Hx Family Respiratory Disorders: No Hx Family Cancer: Yes (self,sister) Hx Family GI Disorders: No Hx Family Endocrine Disorder: No Hx Family Neuromuscular Disorders: No Hx Family Neurologic Disorders: Yes (mother) Hx Family HEENT Disorders: No Hx Family Autoimmune Disorders: No Sister Race: Family Member Ethnicity: Non- Living Status: Hx Family Cancer: Yes (ovarian cancer) Brother Race: Family Member Ethnicity: Non- Living Status: Hx Family Cardiac Disorders: Yes Internal Medicine - H&P: Meds Aspirin 81 mg PO DAILY #30 tab.chew 06/06/16 [Rx] Nitroglycerin 0.4 mg SL Q5MIN PRN #7 tab.subl 06/06/16 [Rx] Clopidogrel [Plavix] 75 mg PO DAILY 08/19/16 [History] Metoprolol [Lopressor] 25 mg PO BID #60 tablet 08/20/16 [Rx] Allergies No Known Allergies Allergy (Verified 09/12/16 09:29) All Systems PM: A 10-system review of systems was performed and is negative for pertinent findings except as documented above in the HPI. - Constitutional Constitutional: no chills, no fever(s), no night sweats - EENT Eyes: no change in vision, no discharge, no pain, no photophobia Ears: no ear discharge, no ear pain, no tinnitus Nose, mouth and throat: no dysphagia, no nasal discharge, no neck pain, no sore throat - Breasts Breasts: as per HPI - Cardiovascular Cardiovascular ROS IM: chest pain, diaphoresis, edema (Last week - one day bilaterally in lower extremities), irregular heart rhythm, lightheadedness, palpitations - Respiratory Respiratory: no cough, no dyspnea, no wheezing, no excessive phlegm production - Gastrointestinal Gastrointestinal: no abdominal pain, no diarrhea, no hematemesis, no hematochezia, no melena, no nausea, no vomiting - Genitourinary Genitourinary ROS male: urinary hesitancy (Occasional) - Musculoskeletal Musculoskeletal ROS IM: no numbness, no tingling - Integumentary Integumentary IM: no rash, no unusual bruising - Neurological Neurological ROS: no confusion, no convulsions, no focal weakness, no numbness, no tingling, no tremor(s) - Psychiatric Psychiatric: as per HPI - Endocrine Endocrine IM: as per HPI - Hematologic/Lymphatic Hematologic/Lymphatic: no easy bruising - Allergic/Immunologic Allergic/Immunologic: as per HPI - Constitutional Vitals: Temp Pulse Resp BP Pulse Ox 97.8 F 53 16 119/75 94 09/12/16 09:56 09/12/16 09:56 09/12/16 09:56 09/12/16 09:56 09/12/16 09:56 General appearance: Present: cooperative, A&O X 3, pleasant, no acute distress, obese, answers questions appropriately - Head Head exam: Present: atraumatic, normocephalic - Eye Eye exam: Present: PERRL, conjuntiva pink, sclera anicteric Pupils: Present: PERRL - ENT ENT exam: Present: normal exam, normal external ear exam - Neck Neck exam general surgery: Present: supple, trachea midline. Absent: lymphadenopathy - Respiratory Respiratory exam: Present: CTAB. Absent: accessory muscle use, rales, rhonchi, wheezes - Cardiovascular Cardiovascular exam: Present: irregular rhythm - GI/Abdominal GI/Abdominal exam: Present: normal bowel sounds, soft, no peritoneal signs. Absent: distended, tenderness - Rectal Rectal exam: Present: deferred - Additional comments: exam deferred. - Extremities Exam Extremities exam: Present: warm, radial pulses palpable and symetrical. Absent : calf tenderness, cyanotic, pedal edema - Back Exam Back exam: Present: normal inspection - Neurological Exam Neurological exam: Present: CN II-XII intact, oriented X3, no focal deficits. Absent: pronater drift, facial droop, speech deficit - Psychiatric Psychiatric exam: Present: normal affect, normal mood - Skin Skin exam: Present: dry, intact Internal Med - H&P Results - Labs CBC & Chem 7: 09/12/16 07:57 09/12/16 07:57 - EKG Data Prior EKG available for review: yes When compared to previous EKG: there is no significant change EKG comments: 09/12/16 11:23 EKG dated 08/19/16 shows sinus rhythm with frequent supraventricular premature complexes. EKG dated 09/12/16 shows sinus rhythm with short AK interval with frequent supraventricular ventricular premature complexes. Nonspecific T-wave abnormality. - Diagnostic Studies Chest x-ray Additional comments: 1-View CXR dated 09/12/16 shows heart and mediastinal structures are stable. The lungs are clear. Arthritic changes of the shoulders are redemonstrated. No acute cardiopulmonary disease. Other Images Additional comments: ECHO Doppler dated 08/06/16 shows: ECG findings: Sinus bradycardia with frequent PACs Left ventricle: Normal LV systolic function, LVEF 65% Mild concentric left ventricular hypertrophy Normal left ventricular diastolic function Right ventricle: Normal right ventricular size and function Left atrium: Normal left atrial size Right atrium: Normal right atrial size Aorta: Normally sized aortic root Pericardium: There is no pericardial effusion present IVC: Normal IVC dimensions and inspiratory collapse Aortic valve: Trileaflet aortic valve No aortic stenosis No aortic regurgitation Mitral valve: Normal mitral valve structure No mitral stenosis Trace mitral regurgitation Tricuspid valve: Normal tricuspid valve structure No tricuspid stenosis Trace tricuspid regurgitation No evidence of pulmonary hypertension Pulmonic valve: Pulmonic valve not well visualized No pulmonic stenosis Trace pulmonic regurgitation <Christopher Jarrell - Last Filed: 09/12/16 19:22> Date of Encounter: 09/12/16 Internal Medicine - H&P: HPI History of present illness: Mr. Gardner is a 61 year old male All Systems PM: A 10-system review of systems was performed and is negative for pertinent findings except as documented above in the HPI. - Constitutional Vitals: Temp Pulse Resp BP Pulse Ox 97.6 F 70 16 149/86 98 09/12/16 15:25 09/12/16 15:25 09/12/16 15:25 09/12/16 15:25 09/12/16 15:25 Internal Med - H&P Results - Labs CBC & Chem 7: 09/12/16 07:57 09/12/16 07:57 Labs: Cardiac Enzymes 09/12/16 Range/Units 13:33 Troponin I 0.00 (0-0.03) ng/mL - Attending Attestation I examined this patient and my medical decision-making was reviewed with the Advanced Practice Nurse. I agree with the documented findings, disposition and treatment plan as described .
--- NOTE | 2016-09-12 16:05 | Electrocardiograph Report ---
[facility] Test Date: 2016-09-12 Pat Name: Saurav Gardner Department: 102 Room: 3B36 Gender: M Special Education Para Professional: Msc : 1955 Requested By: Beverley Mejia Order Number: [id number] Reading MD: Joy Gardiner DO Measurements Intervals [place] Rate: 68 P: 43 DC: 117 QRS: 11 QRSD: 90 T: -12 QT: 413 QTc: 431 Interpretive Statements SINUS RHYTHM WITH SHORT DC INTERVAL WITH FREQUENT SUPRAVENTRICULAR PREMATURE COMPLEXES NONSPECIFIC T-WAVE ABNORMALITY ABNORMAL RHYTHM ECG Electronically Signed On 09-12-2016 16:03:46 EDT by Joy Gardiner DO
[2016-09-12] MEDS: *HR* Heparin 5,000 UNIT/ML VIAL SQ SCH (17:49)
[2016-09-13 04:39] LABS: Basophils # 0.1 K/mcL (0.0-0.2); Basophils % 0.6 %; Eosinophils # 0.5 K/mcL (0.0-0.6); Eosinophils % 4.3 %; Hematocrit 50.5 % (37.5-50.1); Hemoglobin 17.1 g/dL (12.9-16.9); Immature Granulocytes % 0.8 % (0-4); Lymphocytes # 3.7 K/mcL (0.6-4.6); Lymphocytes % 32.4 %; Mean Corpuscular HGB Conc 33.9 g/dL (31.6-35.5); Mean Corpuscular Hemoglobin 29.8 pg (28.0-33.3); Monocytes # 1.2 K/mcL (0.0-1.3); Monocytes % 10.6 %; Neutrophils # 5.9 K/mcL (1.6-8.9); Platelet Count 161 K/mcL (140-400); Red Blood Count 5.74 M/mcL (4.19-5.50); Red Cell Distribution Width 12.8 % (11.5-14.5); Segmented Neutrophils % 51.3 %
[2016-09-13 04:54] LABS: Alanine Aminotransferase 23 Units/L (0-55); Albumin 3.5 g/dL (3.5-5.0); Albumin/Globulin Ratio 1.1 (1.1-2.2); Alkaline Phosphatase 51 Units/L (38-126); Aspartate Amino Transferase 19 Units/L (5-34); BUN/Creatinine Ratio 12 (6-26); Bilirubin,Total 1.3 mg/dL (0.2-1.2); Blood Urea Nitrogen 15 mg/dL (8-26); Carbon Dioxide 29 mEq/L (19-29); Chloride 105 mEq/L (98-109); Chol/HDL Ratio 5.7 (0-4.9); Cholesterol 143 mg/dL (< 200); Globulin 3.1 g/dL (2.4-3.5); Glucose 89 mg/dL (70-99); HDL Cholesterol 25 mg/dL (40-59); LDL Cholesterol,Calculated 93 mg/dL (0-99); Osmolality,Calculated 290 (280-300); Potassium 4.4 mEq/L (3.5-4.5); Sodium 140 mEq/L (136-145); Total Protein 6.6 g/dL (6.0-8.3); Triglycerides 123 mg/dL (< 150); eGFR For African Americans > 60 (> 60); eGFR For Non-African Americans 59 (> 60)
[2016-09-13] MEDS: *HR* Heparin 5,000 UNIT/ML VIAL SQ SCH ×2 (05:59→17:40)
[2016-09-13] MEDS: Aspirin 81 MG TAB.CHEW PO SCH (08:40)
[2016-09-13] MEDS: Pantoprazole 40 MG VIAL IVP SCH (11:11)
--- NOTE | 2016-09-13 14:44 | Cardiology Consult Note ---
Date of Encounter: 09/13/16 Time of Encounter: 14:42 Assessment and Plan (1) Chest pain Current Visit: Yes Status: Acute Chest pain similar to prior anginal equivalent. Troponins negative x 3. Echo 08/06/16 EF 65%, mild concentric LVH, normal diastolic function, no significant valvular dysfunction. Per Cardiology: [facility] 05/2016 s/p PCI of Prox LAD 99% and mid RCA 99% May 2016. Remaining 20-30 % disease. Recommend adding Imdur 30mg daily. Will re-evaluate in AM. If still having chest pain tomorrow will consider ischemic evaluation. If chest pain free in AM will recommend continued medical management. Qualifiers: Chest pain type: other chest pain Qualified Code(s): R07.89 - Other chest pain; R07.8 - Other chest pain (2) CAD (coronary artery disease) Current Visit: Yes Status: Chronic Status post PCI of Prox LAD 99% and mid RCA 99% May 2016. On aspirin, Plavix , beta elli. Adding nitrates. Qualifiers: Coronary Disease-Associated Artery/Lesion type: [place] artery [place] vs. transplanted heart: [place] heart Associated angina: without angina Qualified Code(s): I25.10 - Atherosclerotic heart disease of [place] coronary artery without angina pectoris (3) SVT (supraventricular tachycardia) Current Visit: Yes Status: Acute 24 hr tele reviewed with avg HR 67, SR with PACs, no afib, no svt, no ventricualr arrhythmias. Recent echo showed preserved 65%, no significant valvular dysfunction. Previous Holter showed frequent PACs with 30 episodes of SVT with longest being 17 beats. Has outpatient pending evaluation by EP. Recently had 2 week event monitor--results not yet uploaded. Continue BB. Added Cardizem CD 120mg daily. Discussion w patient/family: The assessment and plan as outlined above was discussed with the patient and/or family members who expressed understanding and agreement. All questions were answered. Thank you for involving us in the care of your patient. Please call with any questions. I will discuss all the above with Dr. Carlos Mendez and make changes as necessary. History of Present Illness Consult date: 09/13/16 Requesting physician: Christopher Jarrell Consult reason: chest pain Chief complaint: chest pain History of present illness: Mr. Gardner is a 61 year old male with a relevant past mental history of CAD with drug-eluting stent to mid RCA May 2016, palpitations, SVT, asthma, and hypertension that presented to ED with chest pain. Per pt, midsternal chest pain started 1 week ago, has been intermittent usually occurring at rest and not worsened with exertion. The chest pain radiates to his neck at times. He reports it is similar to his past anginal equivalent. The pain improved with nitro. When he was still experiencing intermittent chest pain by Tuesday, he came to ED. Troponins have been negative x 3. Pt chest pain free currently. Past Med Surg Social Fam HX - Past Medical History Medical history: arthritis, atrial fibrillation, cancer, coronary artery disease , GERD, hyperlipidemia, hypertension Psychiatric history: no psych history - Past Surgical History Surgical History: angioplasty/stent (Proximal LAD and RCA; May 2016), other - Social History Smoking Status: Never smoker Smokeless Tobacco Status: No Alcohol use: none Drug use: none - Family History Mother Race: Family Member Ethnicity: Non- Living Status: Hx Family Cardiac Disorders: Yes (Angina) Hx Family Neurologic Disorders: Yes (Alzheimer's disease) Father Race: Family Member Ethnicity: Non- Living Status: Hx Family Cardiac Disorders: Yes (self, mother) Hx Family Respiratory Disorders: No Hx Family Cancer: Yes (self,sister) Hx Family GI Disorders: No Hx Family Endocrine Disorder: No Hx Family Neuromuscular Disorders: No Hx Family Neurologic Disorders: Yes (mother) Hx Family HEENT Disorders: No Hx Family Autoimmune Disorders: No Sister Race: Family Member Ethnicity: Non- Living Status: Hx Family Cancer: Yes (ovarian cancer) Brother Race: Family Member Ethnicity: Non- Living Status: Hx Family Cardiac Disorders: Yes Medications and Allergies Aspirin 81 mg PO DAILY #30 tab.chew 06/06/16 [Rx] Nitroglycerin 0.4 mg SL Q5MIN PRN #7 tab.subl 06/06/16 [Rx] Clopidogrel [Plavix] 75 mg PO DAILY 08/19/16 [History] Metoprolol [Lopressor] 25 mg PO BID #60 tablet 08/20/16 [Rx] Allergies No Known Allergies Allergy (Verified 09/12/16 09:29) All Systems Review: A 10-system review of systems was performed and is negative for pertinent findings except as documented above in the HPI. - Cardiovascular Cardiovascular: as per HPI, chest pain at rest, irregular heart rhythm, radiating jaw, neck or arm pain, palpitations Physical Examination Vital Signs, Last 4 Hours Temp Pulse Resp BP Pulse Ox 09/13/16 12:06 110/81 09/13/16 11:29 97.9 F 73 16 149/103 97 Vital Signs Temp Pulse Resp BP Pulse Ox 09/13/16 12:06 110/81 09/13/16 11:29 97.9 F 73 16 149/103 97 09/13/16 07:51 97.9 F 90 17 136/83 97 09/13/16 03:08 98.5 F 58 16 134/89 97 09/12/16 23:52 98.2 F 59 15 124/78 97 09/12/16 19:43 98.3 F 60 16 129/80 97 09/12/16 15:25 97.6 F 70 16 149/86 98 Intake and Output 09/12/16 09/13/16 09/13/16 23:59 07:59 15:59 Other: Meal NPO for breakfast. # Voids 2 2 Weight 102.965 kg Patient Weight 09/13/16 23:59 Weight 102.965 kg General: Conversant, No Apparent Distress HEENT: Atraumatic, Normocephaly, Mucus Membranes Moist Neck: No JVD, Normal carotid pulses Cardiac: Reg Rate and Rhythm, Normal S1 and S2, No Murmur Lungs: Normal Breath Sounds, No Wheeze, Rales, Rhonchi Neuro: Alert and responsive, No focal deficits noted Abdomen: Soft, Non-Tender Skin: No rashes noted on visualized skin Musculoskeletal: No Chest Wall Tenderness Extremities: No Clubbing, No Cyanosis, No Edema, Normal Pulses Results 09/13/16 04:05 09/13/16 04:05 Lab Results 09/12/16 09/13/16 09/13/16 19:48 04:05 04:05 WBC 11.5 H Hgb 17.1 H Hct 50.5 H Plt Count 161 Sodium 140 Potassium 4.4 Chloride 105 Carbon Dioxide 29 BUN 15 Creatinine 1.25 Glucose 89 Calcium 9.0 Total Bilirubin 1.3 H AST 19 ALT 23 Alkaline Phosphatase 51 Troponin I 0.00 B-Natriuretic Peptide 09/13/16 04:05 WBC Hgb Hct Plt Count Sodium Potassium Chloride Carbon Dioxide BUN Creatinine Glucose Calcium Total Bilirubin AST ALT Alkaline Phosphatase Troponin I B-Natriuretic Peptide 39 Short CBC 09/13/16 Range/Units 04:05 WBC 11.5 H (4.3-11.1) K/mcL Hgb 17.1 H (12.9-16.9) g/dL Hct 50.5 H (37.5-50.1) % Plt Count 161 (140-400) K/mcL Neutrophils # 5.9 (1.6-8.9) K/mcL BMP 09/13/16 Range/Units 04:05 Sodium 140 (136-145) mEq/L Potassium 4.4 (3.5-4.5) mEq/L Chloride 105 (98-109) mEq/L Carbon Dioxide 29 (19-29) mEq/L BUN 15 (8-26) mg/dL Creatinine 1.25 (0.72-1.25) mg/dL Glucose 89 (70-99) mg/dL Calcium 9.0 (8.6-10.8) mg/dL Cardiac Enzymes 09/12/16 Range/Units 19:48 Troponin I 0.00 (0-0.03) ng/mL Liver Function 09/13/16 Range/Units 04:05 Total Bilirubin 1.3 H (0.2-1.2) mg/dL AST 19 (5-34) Units/L ALT 23 (0-55) Units/L Alkaline Phosphatase 51 (38-126) Units/L Albumin 3.5 (3.5-5.0) g/dL Active Medications Aspirin (Aspirin) 81 mg PO DAILY [facility] Stop: 03/15/17 09:01 Last Admin: 09/13/16 08:40 Dose: Not Given Clopidogrel Bisulfate (Plavix) 75 mg PO DAILY [facility] Stop: 03/15/17 09:01 Last Admin: 09/13/16 08:40 Dose: Not Given Diltiazem HCl (Cardizem Cd) 120 mg PO DAILY [facility] Stop: 03/16/17 09:01 Heparin Sodium (Porcine) (Heparin) 5,000 unit SQ Q12HCO [facility] Stop: 03/14/17 18:01 Last Admin: 09/13/16 05:59 Dose: 5,000 unit Isosorbide Mononitrate (Imdur) 30 mg PO DAILY [facility] Stop: 03/16/17 09:01 Metoprolol Tartrate (Lopressor) 25 mg PO BID [facility] Stop: 03/14/17 21:01 Last Admin: 09/13/16 08:40 Dose: Not Given Naloxone HCl (Narcan) 0.4 mg IVP Q2MIN PRN PRN Reason: Opioid Reversal Stop: 03/14/17 10:36 Nitroglycerin (Nitroglycerin) 0.4 mg SL Q5MIN PRN PRN Reason: Chest Pain Stop: 03/14/17 10:48 Last Admin: 09/12/16 17:49 Dose: 0.4 mg Ondansetron HCl (Zofran Odt) 4 mg SL Q8HR PRN PRN Reason: Nausea And Vomiting Stop: 03/14/17 10:36 Pantoprazole Sodium (Protonix) 40 mg IVP DAILY [facility] Stop: 03/15/17 11:31 Last Admin: 09/13/16 11:11 Dose: 40 mg - Imaging and Cardiology Stress Test: report reviewed Echo: report reviewed Cardiac cath: report reviewed - EKG Interpretation EKG results cardiology: personally reviewed (SR with arrhythmia), other (24 hour tele AVG HR 67, sinus rhythm with frequent ectopy noted.) Consult Discharge Plan - Plan Referrals: Terrence Murrell MD [Primary Care Provider] -
[2016-09-13] MEDS: Isosorbide MONOnitrate (24 HR) 30 MG TAB.ER.24H PO SCH (15:33)
[2016-09-13] MEDS: Diltiazem CD (24hr) 120 MG CAPSULE PO SCH (15:33)
--- NOTE | 2016-09-13 16:47 | Internal Med Progress Note ---
Date of Encounter: 09/13/16 Time of Encounter: 15:00 - Assessment and plan (1) Chest pain Current Visit: No Status: Acute Assessment and plan: Patient denies chest pain or shortness of breath at this time. Imdur and Cardizem has been added to his regimen per cardiology. We will observe overnight. Per cardiology, this patient is chest pain-free, he will go home tomorrow if not, he will possibly have a left heart catheter tomorrow at their discretion. We will make nothing by mouth at midnight. Chest x-ray negative. Troponins negative 3. ITS Impressions Chest X-Ray 09/12/16 07:33 IMPRESSION: No acute cardiopulmonary disease. D/ / 09/12/2016 08:14:38 Victor Hugo Burrell MD / michele Interpreting Provider: Victor Hugo Burrell MD Qualifiers: Chest pain type: unspecified Qualified Code(s): R07.9 - Chest pain, unspecified (2) SVT (supraventricular tachycardia) Current Visit: Yes Status: Resolved Assessment and plan: Cardiology on board. Rate controlled. Cardizem has been added to his regimen. We will continue his beta elli. He recently had an outpatient 2 week event monitor that has not yet been followed up on. (3) Hyperlipidemia Current Visit: Yes Status: Chronic Assessment and plan: Lipid panel unremarkable with only abnormality is a slightly lowered HDL. He is not on cholesterol medication. Qualifiers: Hyperlipidemia type: unspecified Qualified Code(s): E78.5 - Hyperlipidemia , unspecified (4) GERD (gastroesophageal reflux disease) Current Visit: Yes Status: Chronic Assessment and plan: Denies current symptoms. Qualifiers: Esophagitis presence: esophagitis presence not specified Qualified Code(s) : K21.9 - Gastro-esophageal reflux disease without esophagitis (5) DVT prophylaxis Current Visit: Yes Status: Acute Assessment and plan: Subcutaneous heparin (6) CAD (coronary artery disease) Current Visit: No Status: Chronic Qualifiers: Coronary Disease-Associated Artery/Lesion type: [place] artery [place] vs. transplanted heart: [place] heart Associated angina: without angina Qualified Code(s): I25.10 - Atherosclerotic heart disease of [place] coronary artery without angina pectoris (7) Sleep apnea Current Visit: No Status: Chronic (8) Hypertension Current Visit: Yes Status: Chronic Assessment and plan: Intermittently hypertensive during this admission currently normotensive. His home metoprolol has been continued and Imdur has been added. We will continue to trend and adjust medications as indicated. Qualifiers: Hypertension type: essential hypertension Qualified Code(s): I10 - Essential (primary) hypertension (9) Polycythemia Current Visit: No Status: Chronic Assessment and plan: Likely secondary to obstructive sleep apnea. - Subjective Interval history: Patient seen and examined. On examination, patient resting supine in bed. Patient tired and stating he finally just fallen asleep for the first time since he has been here. He denies pain at this time and is requesting to rest. - Constitutional Vitals: Temp Pulse Resp BP Pulse Ox 98.4 F 49 16 117/68 98 09/13/16 14:58 09/13/16 14:58 09/13/16 14:58 09/13/16 14:58 09/13/16 14:58 General appearance: Present: cooperative, A&O X 3, pleasant, no acute distress, obese, answers questions appropriately - Head Head exam: Present: atraumatic, normocephalic - Eye Eye exam: Present: PERRL, conjuntiva pink, sclera anicteric Pupils: Present: PERRL - Neck Neck exam general surgery: Present: supple, trachea midline. Absent: lymphadenopathy - Respiratory Respiratory exam: Present: CTAB. Absent: accessory muscle use, rales, respiratory distress, rhonchi, wheezes - Cardiovascular Cardiovascular exam: Present: RRR, +S1, +S2. Absent: diastolic murmur, gallop, rubs, systolic murmur - GI/Abdominal GI/Abdominal exam: Present: normal bowel sounds, soft, no peritoneal signs. Absent: distended, tenderness - Extremities Exam Extremities exam: Present: warm, radial pulses palpable and symetrical. Absent : calf tenderness, cyanotic, pedal edema - Neurological Exam Neurological exam: Present: alert, CN II-XII intact, oriented X3, no focal deficits, strengths equal and symetr throughout. Absent: pronater drift, facial droop, speech deficit - Skin Skin exam: Present: dry, intact, normal color, warm Internal Medicine: Result - Labs CBC & Chem 7: 09/13/16 04:05 05/08/17 04:05 Labs: Short CBC 09/13/16 Range/Units 04:05 WBC 11.5 H (4.3-11.1) K/mcL Hgb 17.1 H (12.9-16.9) g/dL Hct 50.5 H (37.5-50.1) % Plt Count 161 (140-400) K/mcL Neutrophils # 5.9 (1.6-8.9) K/mcL BMP 09/13/16 04:05 Sodium 140 Potassium 4.4 Chloride 105 Carbon Dioxide 29 BUN 15 Creatinine 1.25 Glucose 89 Calcium 9.0 Cardiac Enzymes 09/12/16 Range/Units 19:48 Troponin I 0.00 (0-0.03) ng/mL Liver Function 09/13/16 Range/Units 04:05 Total Bilirubin 1.3 H (0.2-1.2) mg/dL AST 19 (5-34) Units/L ALT 23 (0-55) Units/L Alkaline Phosphatase 51 (38-126) Units/L Albumin 3.5 (3.5-5.0) g/dL - ABG Interpretation ABG results: PT/INR, D-dimer PT 13.6 Seconds (9.4-12.1) H 09/12/16 07:57 D-Dimer 236 ng/mLFEU (0-500) 09/12/16 07:57 Consult Discharge Plan - Plan Referrals: Handy,Terrence Chatterjee MD [Primary Care Provider] -
--- NOTE | 2016-09-13 17:28 | Electrocardiograph Report ---
[address] [address] Test Date: 2016-09-13 Pat Name: Saurav Gardner Department: 113 Room: 3B Gender: M Engineering Supervisor: IMMANUEL : 1955 Requested By: Román Carter Order Number: [id number] Reading MD: Carlos Mendez Measurements Intervals Mason Rate: 75 P: 21 MO: 123 QRS: 18 QRSD: 83 T: -29 QT: 388 QTc: 417 Interpretive Statements SINUS RHYTHM WITH MARKED SINUS ARRHYTHMIA PACs NONSPECIFIC ST \T\ T-WAVE ABNORMALITY Electronically Signed On 09-13-2016 17:27:12 EDT by Carlos Mendez
[2016-09-13] MEDS ORDERED: Acetaminophen 325 MG TABLET PO PRN (23:02)
[2016-09-14 05:19] LABS: Basophils # 0.1 K/mcL (0.0-0.2); Basophils % 0.8 %; Eosinophils # 0.4 K/mcL (0.0-0.6); Eosinophils % 3.6 %; Hematocrit 48.2 % (37.5-50.1); Hemoglobin 16.5 g/dL (12.9-16.9); Immature Granulocytes % 1.4 % (0-4); Lymphocytes # 4.8 K/mcL (0.6-4.6); Lymphocytes % 40.6 %; Mean Corpuscular HGB Conc 34.2 g/dL (31.6-35.5); Mean Corpuscular Volume 87.6 fL (83.0-100.0); Mean Platelet Volume 10.4 fL (9.4-12.4); Monocytes # 1.3 K/mcL (0.0-1.3); Monocytes % 11.2 %; Platelet Count 154 K/mcL (140-400); Red Cell Distribution Width 12.8 % (11.5-14.5); Segmented Neutrophils % 42.4 %
[2016-09-14 05:33] LABS: BUN/Creatinine Ratio 14 (6-26); Blood Urea Nitrogen 16 mg/dL (8-26); Calcium 8.8 mg/dL (8.6-10.8); Carbon Dioxide 30 mEq/L (19-29); Chloride 106 mEq/L (98-109); Glucose 91 mg/dL (70-99); Osmolality,Calculated 291 (280-300); Potassium 4.2 mEq/L (3.5-4.5); Sodium 140 mEq/L (136-145); eGFR For African Americans > 60 (> 60); eGFR For Non-African Americans > 60 (> 60)
[2016-09-14] MEDS: *HR* Heparin 5,000 UNIT/ML VIAL SQ SCH ×2 (05:52→18:05)
[2016-09-14 06:01] LABS: Neutrophils # 5.1 K/mcL (1.6-8.9)
[2016-09-14 06:03] LABS: Platelet Estimate Normal (Normal); Reactive Lymphocytes Present (Not Present)
[2016-09-14] MEDS: Aspirin 81 MG TAB.CHEW PO SCH (08:14)
[2016-09-14] MEDS: Pantoprazole 40 MG VIAL IVP SCH (08:14)
[2016-09-14] MEDS: Isosorbide MONOnitrate (24 HR) 30 MG TAB.ER.24H PO SCH (08:14)
[2016-09-14] MEDS: Diltiazem CD (24hr) 120 MG CAPSULE PO SCH (08:14)
[2016-09-14] MEDS ORDERED: Diltiazem CD (24hr) 120 MG CAPSULE PO SCH (09:00)
[2016-09-14] MEDS ORDERED: Isosorbide MONOnitrate (24 HR) 30 MG TAB.ER.24H PO SCH (09:00)
--- NOTE | 2016-09-14 09:46 | Event Note ---
Date of Encounter: 09/14/16 Time of Encounter: 09:44 - Cardiology Event Note Pt received first Imdur dose at 1530 yesterday. Reports recurrent chest pain overnight at rest. Chest pain on presentation similar to past anginal equivalent. Since he is having recurrent chest pain despite long acting nitrates , recommend LHC for unstable angina. R/B/A discussed and pt agrees to proceed. LHC today.
--- NOTE | 2016-09-14 13:38 | Pre-Sedation Evaluation ---
Pre-sedation evaluation - Pre-sedation checklist Date of procedure: 09/14/16 Procedure: Heart cath Recent Vitals: Last Vital Signs Temp 97.5 F L 09/14/16 11:48 Pulse 64 09/14/16 11:48 Resp 14 09/14/16 11:48 BP 135/73 09/14/16 11:48 Pulse Ox 91 09/14/16 11:48 H&P (including ROS) documented in medical record: Yes Previous reaction to sedatives/anesthetics: No Dietary Status: NPO after Midnight Airway Assessment: Patient can open mouth completely, TMJ function normal, Micrognathia (under-bite, receding chin) absent, Neck with adequate range of motion Dentition: full dentition Possible difficult airway: No ASA Classification *see protocol: CLASS II-Mild systemic disease Plan of Care: Pt appropriate candidate for procedure/moderate/conscious sedation , Risks/benefits of procedure/sedation discussed w/ patient/family
[2016-09-14] MEDS ORDERED: *HR* Heparin 10,000 UNIT/10 ML VIAL ONE (13:39)
[2016-09-14] MEDS ORDERED: 0.9 % Sodium Chloride 1,000 ML ONE ×3 (13:39→16:59)
[2016-09-14] MEDS ORDERED: Heparin 1,000 UNITS/500 mL NS 500 ML ONE (13:39)
[2016-09-14] MEDS ORDERED: Nitroglycerin 1,000 MCG/10 ML VIAL IV ONE (13:39)
[2016-09-14] MEDS ORDERED: *HR* Midazolam HCl 2 MG/2 ML VIAL ONE ×2 (13:43→14:21)
[2016-09-14] MEDS ORDERED: *HR* FentaNYL (PF) 100 MCG/2 ML VIAL ONE (13:44)
[2016-09-14] MEDS ORDERED: *HR* Bivalirudin 250 MG VIAL IVC ONE (14:20)
--- NOTE | 2016-09-14 15:13 | Invasive Diagnostic Lab Proc ---
Name: Saurav Gardner Date of Study: 09/14/2016 Date: 1955 Ht: 70.9in Medical Record#: [id number] Age: 61 Wt: 227.08lb Gender: Male BSA: 2.22 Order #: [id number] BMI: 31.79 Physicians Procedure Physician: Angelita Mendez MD, [facility] Referring MD: Referring MD: Staff Name Position Time In Lotus Lu RT (R) Scrub 01:45 PM Mali Plata RN Collar Fuser 01:45 PM Wilma Rice RN Nurse 01:45 PM Tamar Valenzuela RT (R) Monitor 01:45 PM Indications Indication Unstable Angina Procedures Performed Procedure CORONARY ARTERY ANGIO S\\T\\I PRQ CARD [place] STENT W/ANGIO 1 VSL Pre-Procedure Checklist Informed consent is complete signed and on chart. H\\T\\P is on chart. ID band is on and ID verified with patient. Patient NPO for procedure The procedure was described for the patient and questions were answered. Blood Pressure: 131/79 ECG is on chart. Plan of Care Patient will tolerate the procedure without complications. Adequate level of comfort will be maintained. Hemodynamics will remain stable Patient will recover from procedure without complications. Respiratory function will be maintained. Cardiac rhythm will remain stable. Patient temperature will be maintained. Patient and/or family have verbalized understanding of the procedure. Patient Education Chief Complaint/Reason for Test: Cardiac Cath Developmental Category: Adult (18-64 years) Developmentally Appropriate for Age: Yes Learning Barriers: None Education Needs: Procedure Education Method: Verbal Information Taught: Cardiac Cath Educational Evaluation: Able to repeat information Intravenous Access Time IV Size Location DC'd Fluid/Drip Rate Units RN 18g 1 05/12" Patent On Arrival Rt Arm 0.9NaCl ml/hr Allergies No Known Allergies Vital Signs Time BP (mmHg) HR (bpm) O2 Sat. RR (bpm) LOC / 131 79 98 % 15 5 = Fully awake and oriented or at pre-proc level 01:46 PM / % 5 = Fully awake and oriented or at pre-proc level 01:46 PM / % 02:01 PM / % 5 = Fully awake and oriented or at pre-proc level 02:01 PM / % 4 = Oriented but drowsy 02:17 PM / % 4 = Oriented but drowsy 02:32 PM / % 5 = Fully awake and oriented or at pre-proc level 01:59 PM 141 / 88 69 99 % 28 02:04 PM 118 / 70 46 98 % 11 02:09 PM 116 / 73 57 95 % 11 02:14 PM 127 / 70 96 94 % 17 02:19 PM 114 / 69 68 95 % 13 02:24 PM 113 / 67 64 97 % 18 02:29 PM 111 / 65 68 93 % 15 02:34 PM 105 / 66 61 93 % 15 02:39 PM 117 / 67 60 92 % 22 02:47 PM / % 5 = Fully awake and oriented or at pre-proc level Procedural Medications Time Medication Dose Units Method Given By 02:01 PM Versed 2 mg Intravenous Mali Plata RN 02:02 PM Fentanyl 50 mcg Intravenous Mali Plata RN 02:02 PM Oxygen 2 L/min nasal cannula Mali Plata RN 02:08 PM Benadryl 25 mg Intravenous Mali Plata RN 02:09 PM Lidocaine 2% 16 ml Subcutaneous Angelita Mendez MD, FACC 02:20 PM Angiomax 0.75mg/kg bolus: 16 ml Intravenous Mali Plata RN 02:20 PM Angiomax 1.75mg/kg/hr: 37 ml Intravenous Mali Plata RN 02:21 PM Versed 1 mg Intravenous Mali Plata RN 02:21 PM Fentanyl 25 mcg Intravenous Mali Plata RN 02:27 PM Nitroglycerin 200 mcg Intracoronary Angelita Mendez MD, FACC 02:32 PM Nitroglycerin 200 mcg Intracoronary Angelita Mendez MD, FACC 02:36 PM Nitroglycerin 200 mcg Intracoronary Angelita Mendez MD, FACC 02:39 PM Plavix 600 mg Orally Mali Plata RN ASA Classification: CLASS II- Mild systemic disease (i.e. well-controlled diabetes, hypertension, asthma, cigarette smoking) Anjali Score Preprocedure Postprocedure Activity 2- Moves 4 extremities sustained head lift Activity 2- Moves 4 extremities sustained head lift Circulation 2- SBP +/= 20 points of pre-anesthetic level Circulation 2- SBP +/= 20 points of pre-anesthetic level Consciousness 2- Awake and alert oriented x 3 Consciousness 2- Awake and alert oriented x 3 O2 Saturation 2- Able to maintain O2 satruation of 92% on room air O2 Saturation 2- Able to maintain O2 satruation of 92% on room air Respiratory 2- Able to deep breathe and cough well Respiratory 2- Able to deep breathe and cough well Total Score 10 Total Score 10 Contrast Agent: Isovue Diagnostic Contrast: 95 ml Total Contrast: 95 ml Fluoro Dose: 1089 mGy Procedure Log Time Note Enter By 01:45 PM Lotus Lu RT (R) Position: Scrub Time in: 13:45 :45 PM Mali Plata RN Position: Collar Fuser Time in: :45 :45 PM Wilma Rice RN Position: Nurse Time in: :45 dsp:45 PM Tamar Valenzuela RT (R) Position: Monitor Time in: :45 :45 PM Pt arrived to cytology laboratory manager 2 at :45 46 PM Time: :46 Patient comfortable and pain free: Yes 46 PM Time: :46LOC: 5 = Fully awake and oriented or at pre-proc level dsp:46 PM IV Supplies used: J loop Angio Cath. :46 PM Patient charges- Angio tray pack, Navilyst 3mm J, Pulse Oximetry and ACIST tubing and transducer dspell:46 PM Case Delayed No ell 01:50 PM Physician arrived 13:50 :51 PM Meet and greet completed :52 PM Sign in performed according to hospital policy. :52 PM Procedure start 13:52 dsp:52 PM CathStat 01:52 PM Case Start 01:55 PM ASA Class CLASS II- Mild systemic disease (i.e. well-controlled diabetes, hypertension, asthma, cigarette smoking) dspell:58 PM Recorded ECG: HR=69 Condition=Condition 1 01:58 PM Vitals capture started with the following parameters, Patient=Adult, Interval=5 min, Initial Ekzvcddc=081 mmHg, Deflation Rate=5 mmHg, Cuff placed on Left Arm 01:59 PM Hair removed from procedure site in procedure lab using clippers. Bilateral groin prepped with Chloraprep by Sites, Tena RT (R), safety strap applied then patient was draped. Skin intact. :59 PM HR=69 bpm, RGNL=489/88 mmhg, SpO2=99.0 %, Resp=28 B/min, Comment=Sinus Rhythm with PAC's 02:01 PM Time: 13:46 Patient comfortable and pain free: Yes 02: PM Time: 14:01LOC: 5 = Fully awake and oriented or at pre-proc level 02: PM Time: 14:01 Versed 2 mg Intravenous Given by Mali Plata RN 02:02 PM Time: 14:02 Fentanyl 50 mcg Intravenous Given by Mali Plata RN 02: PM Time: 14:02 Oxygen on at 2 L/min per nasal cannula by Mali Plata RN gail 02: PM Pressure channel 1 zeroed. 02:04 PM HR=46 bpm, OZMC=189/70 mmhg, SpO2=98.0 %, Resp=11 B/min, Comment=Sinus Rhythm with PAC's 02:06 PM Time out performed according to hospital policy 02:08 PM Time: 14:08 Benadryl 25 mg Intravenous Given by Mali Plata RN [facility] 02:09 PM HR=57 bpm, IIWQ=518/73 mmhg, SpO2=95.0 %, Resp=11 B/min, Comment=Sinus Rhythm with PAC's 02:09 PM Time: 14:09 16 ml Lidocaine 2% to right groin Subcutaneous Given by Angelita Mendez MD, [facility] 02:10 PM Access obtained by percutaneous puncture. 5Fr 10cm Terumo [place] sheath placed in right Femoral artery. [id number] 02:10 PM 5Fr FL 4 catheter inserted over the wire [facility] :10 PM 0.035 145cm Navilyst 3mmJ wire [id number] 02:11 PM LCA angiography performed in multiple views. 02:11 PM Recorded Pressure: Ao, HR=68, Condition=Condition 1 (Aorta) Ao 108/65/85 02:11 PM Recorded Pressure: Ao, HR=69, Condition=Condition 1 (Aorta) Ao 98/61/80 02:12 PM Recorded Pressure: Ao, HR=55, Condition=Condition 1 (Aorta) Ao 100/55/75 02:13 PM Catheter removed :13 PM 5Fr FR 4 catheter inserted over the wire [facility] :13 PM RCA angiography performed in multiple views. 02:14 PM HR=96 bpm, BJOU=770/70 mmhg, SpO2=94.0 %, Resp=17 B/min, Comment=Sinus Rhythm with PAC's 02:15 PM Catheter removed :16 PM Sheath exchanged for a 6 Fr 11 cm Cordis Monie sheath [id number] :17 PM Time: 14:01LOC: 4 = Oriented but drowsy dsp17 PM Time: 14:01 Patient comfortable and pain free: Yes :17 PM PCI Status Urgent dsp:17 PM PCI Indication: PCI for high risk Non-STEMI or unstable angina dsp:18 PM PCI lesion in Mid RCA. Pre Stenosis: 90 Pre ANUJ Flow: :18 PM PCI lesion in Mid RCA. 02:18 PM Inflation device was opened. :19 PM HR=68 bpm, UCMY=278/69 mmhg, SpO2=95.0 %, Resp=13 B/min 02:20 PM Time: 14:20 Angiomax 0.75mg/kg bolus: 16 ml Intravenous Given by Mali Plata RN [place] pump 02:20 PM 6Fr JR 4 Runway guide catheter was used to cannulate the PCI vessel successfully. reused? No :20 PM Time: 14:20 Angiomax 1.75mg/kg/hr: 37 ml Intravenous Given by Mali Plata RN [place] pump :21 PM Time: 14:21 Versed 1 mg Intravenous Given by Mali Plata RN [facility] 02:21 PM Time: 14:21 Fentanyl 25 mcg Intravenous Given by Mali Plata RN [facility] 02:22 PM Recorded Pressure: Ao, HR=69, Condition=Condition 1 (Aorta) Ao 48/28/41 02:23 PM .014 Prowater 190cm guide wire across target lesion- successful. reused? No :24 PM 2.0 mm x 15 mm Emerge Monorail balloon across target lesion- successful. reused? No :24 PM HR=64 bpm, KMDE=090/67 mmhg, SpO2=97.0 %, Resp=18 B/min, Comment=Sinus Rhythm with PAC's 02:24 PM Recorded Pressure: Ao, HR=65, Condition=Condition 1 (Aorta) Ao 96/60/77 02:25 PM Balloon inflated @ 14 chante for 20 seconds dspellman 02:26 PM Balloon inflated @ 14 chante for 20 seconds dspellman 02:27 PM Balloon catheter removed intact. dspell 02:27 PM Time: 14:27 Nitroglycerin 200 mcg Intracoronary Given by Angelita Mendez MD, [facility] dspellman 02:29 PM HR=68 bpm, WSOM=758/65 mmhg, SpO2=93.0 %, Resp=15 B/min, Comment=Sinus Rhythm with PAC's 02:30 PM 2.25mm x 38mm Synergy drug-eluting stent across target lesion- successful Lot #[id number] dspell 02:30 PM Stent deployed @ 12 chante for 30 seconds dspellman 02:30 PM Recorded Pressure: Ao, HR=62, Condition=Condition 1 (Aorta) Ao 79/55/68 02:31 PM Stent balloon reinflated @ 14 chante for 15 seconds dspell 02:32 PM Time: 14:17 Patient comfortable and pain free: Yes dspell 02:32 PM Time: 14:17LOC: 4 = Oriented but drowsy dspellman 02:32 PM Stent delivery system removed intact. dspell 02:33 PM Time: 14:32 Nitroglycerin 200 mcg Intracoronary Given by Angelita Mendez MD, [facility] dspellman 02:33 PM 2.25 mm x 20mm NC Emerge balloon across target lesion- successful. reused? No dspell 02:34 PM HR=61 bpm, AQNX=954/66 mmhg, SpO2=93.0 %, Resp=15 B/min, Comment=Sinus Rhythm with PAC's 02:34 PM Balloon inflated @ 20 chante for 20 seconds dspellman 02:35 PM Balloon inflated @ 20 chante for 10 seconds dspellman 02:35 PM Balloon inflated @ 20 chante for 10 seconds dspellman 02:36 PM Balloon catheter removed intact. dspell 02:37 PM Time: 14:36 Nitroglycerin 200 mcg Intracoronary Given by Angelita Mendez MD, [facility] dspellman 02:37 PM Guide wire removed intact. dspellman 02:38 PM Guide catheter removed intact. dspellman 02:39 PM Bolus angiogram of right Femoral complete: 4 ml/sec for a total of 7 mls dspell 02:39 PM HR=60 bpm, MNGX=131/67 mmhg, SpO2=92.0 %, Resp=22 B/min, Comment=Sinus Rhythm with PAC's 02:39 PM Time: 14:39 Plavix 600 mg Orally Given by Mali Plata RN dspell 02:39 PM Procedure completed at 14:39 dspellman 02:41 PM Sign out completed: Radiation Dose 1088.57 mGy Fluoro Time: 7.1 Isovue 370 - 200ml contrast 95 ml given by Angelita Mendez MD, FAC. Complications: NoneCardiac Rehab Consult needed: YesConfirmed administered medications: Yes dspell 02:47 PM Time: 14:32 Patient comfortable and pain free: Yes dspell 02:47 PM Time: 14:32LOC: 5 = Fully awake and oriented or at pre-proc level dspellman 02:47 PM Isovue 370 - 200ml,1 Bottle(s) used. dspell 02:48 PM Sheath left in place to be pulled on floor/holding areaV+Pad dspellman 02:49 PM Post ECG Sinus Rhythm with PVC's dspellman 02:49 PM Post Blood Pressure 117/67 dspellman 02:49 PM Information taught Cardiac Cath and PCI dspellman 02:49 PM Education needs Procedure, Plan of Care, and Responsibilities of Patient in Care dspellman 02:49 PM Learning barriers :None dspell 02:49 PM Education Methods Verbal dspellman 02:50 PM Education evaluation Able to repeat information dspellman 02:50 PM Site status No bleeding/hematoma - Rt Groin as reported by Lotus Lu RT (R) at 14:50 dspellman 02:52 PM Opsite applied dspellman 02:54 PM Report given to [place] CARPIO Pt taken to 2N Room #7. 14:52 dspellman 02:54 PM Plavix, Effient or Brilinta given Yes dspellman 02:54 PM Delay to floor No dspellman 02:54 PM Patient out of room: 14:54 dspellman 02:54 PM Family placed in consult room. dspellman 02:54 PM Complications: None dspellman 02:54 PM Fluoro Time: 7.1 dspellman 02:54 PM Isovue 370 - 200ml contrast 95 ml given by Angelita Mendez MD, [facility]. dspellman 02:54 PM Radiation Dose 1088.57 mGy dspellman 02:57 PM Lesion found in Proximal RCA. Pre Stenosis: 50 Pre ANUJ Flow: dspellman 02:57 PM Lesion found in Proximal LAD. Pre Stenosis: 30 Pre ANUJ Flow: dspellman 02:58 PM Lesion found in Mid LAD. Pre Stenosis: 20 Pre ANUJ Flow: dspellman 02:58 PM Lesion found in Distal LAD. Pre Stenosis: 30 Pre ANUJ Flow: dspellman 02:58 PM Lesion found in 1st Diagonal. Pre Stenosis: 30 Pre ANUJ Flow: dspellman 02:58 PM Lesion found in Proximal Circumflex. Pre Stenosis: 30 Pre ANUJ Flow: dspellman 02:58 PM Lesion found in 1st Marginal. Pre Stenosis: 40 Pre ANUJ Flow: dspellman 02:59 PM Proximal Left Anterior Descending Coronary Artery with 30% stenosis. If graft is supplying this territory, 0 % stenosis. dspellman 02:59 PM Mid/Distal Left Anterior Descending Coronary Artery and diagonal branches with 30% stenosis. If graft is supplying this area, 0 % stenosis dspellman 02:59 PM Circumflex, Obtuse Marginal, Left Posterior Descending, and Left Posterolateral Coronary Arteries with 40 % stenosis. If graft is supplying this area, 0 % stenosis dspellman 02:59 PM Right Coronary, Right Posterior Descending Arteries with Right Posterolateral and Acute Marginal branches with 90 % stenosis. If graft is supplying this area, 0 % stenosis dspellman 03:02 PM Time: 14:47 Patient comfortable and pain free: Yes dspellman 03:02 PM Time: 14:47LOC: 5 = Fully awake and oriented or at pre-proc level dspellman Complications Complication None None Hemodynamics Pressures Site Systolic/A Wave Diastolic/V Wave Mean AO 108 65 85 AO 98 61 80 AO 100 55 75 AO 48 28 41 AO 96 60 77 AO 79 55 68 Post Procedure Information Blood Pressure: 117/67 mmHg Rhythm: Sinus Rhythm with PVC's Post procedural instructions were given Closure Device Time Device Success/Fail 09/14/2016 2:55:00 PM Site Checks Time Location Status Staff Sheath In? Note 02:50 PM Rt Groin No bleeding/hematoma Lotus Lu RT (R) Pulses Time Site Pre-Procedure Post-Procedure Note Bilateral DP \\T\\ PT 2+ Bilateral radial 2+ Updated by Tamar Valenzuela RT (R) on 09/14/2016 3:07:53 PM RT Karla electronically signed on 09/14/2016 3:08:44 PM with status of Final
--- NOTE | 2016-09-14 15:49 | Invasive Diagnostic Lab ---
Name: Saurav Gardner Date of Study: 09/14/2016 Date: 1955 Ht: 180.0 cm /70.9 in Medical Record#: [id number] Age: 61 Wt: 103. kg / 227.08 lb Account/Order#: [id number] Gender: Male BSA: 2.22 Order #: [id number] Fluoro Dose: 1089 mGy BMI: 31.79 Procedure Physician: Angelita Mendez MD, [facility] Referring MD: Referring MD: Procedures Performed: CORONARY ANGIOGRAPHY Stent w/ PTCA Single Major Vessel Indications: Unstable Angina Impressions: Double vessel coronary artery disease. Patient had successful PTCA/Drug-Eluting Stent placement in the mid RCA. There is a previous stent in Mid RCA with severe in-stent stenosis that was intervened on. Stent placed from a prior procedure in the Proximal LAD is patent. Recommendations: DAPT for one year minimum uninterrupted. Optimal medical therapy of patient's disease. Aggressive risk factor modification. History/Risk Factors: AFIb arthritis skin CA CAD GERD DVT Hypertension Dyslipidemia Prior IN Previous PCI Date: 06/06/2016 Procedure Access obtained in the right Femoral artery by percutaneous puncture Complications: None, None Contrast: Isovue 95ml Hemodynamics: Pressures Site Systolic/ A Wave Diastolic/ V Wave End Diastolic/ Mean HR AO 108 65 85 68 AO 98 61 80 69 AO 100 55 75 55 AO 48 28 41 69 AO 96 60 77 65 AO 79 55 68 62 Coronary Dominance: Co-Dominant Lesion Findings/Interventions * Left Main Coronary Artery The LMCA is angiographically free of disease. * Left Anterior Descending There is a 30% stenosis in the Proximal LAD. Previously stented prox/mid LAD widely patent. There is a 20% stenosis in the Mid LAD. There is a 30% stenosis in the Distal LAD. There is a 30% stenosis in the 1st Diagonal. * Circumflex There is a 30% stenosis in the Proximal Circumflex. There is a 40% stenosis in the 1st Marginal. * Right Coronary Artery There is a 50% stenosis in the Proximal RCA. There is a 38 mm long, 90% instent restenosis in the Mid RCA. An intervention was performed on the Mid RCA with a final stenosis of 0%. There were no lesion complications. The final ANUJ flow was 3. Interventional Device(s) Vessel Segment Type Name Diameter (mm) Length (mm) Mid RCA Balloon Emerge Monorail 2 15 Mid RCA Drug Eluting Stent Synergy 2.25 38 Mid RCA Balloon NC Emerge 2.25 20 Updated by Tamar Valenzuela RT (R) on 09/14/2016 3:06:25 PM Angelita Mendez MD, [facility] electronically signed on 09/14/2016 3:45:03 PM with status of Final
[2016-09-14] MEDS ORDERED: *HR* Atropine Sulfate 1 MG/10 ML SYRINGE ONE (16:59)
--- NOTE | 2016-09-14 18:14 | Internal Med Progress Note ---
Date of Encounter: 09/14/16 Time of Encounter: 09:20 - Assessment and plan (1) Chest pain Current Visit: No Status: Acute Assessment and plan: Patient reported approximately 10 day history of chest pain shortness of breath and occasionally diaphoresis. He reported that last year he had bilateral lower extremity edema and says he has had palpitations as well as a burning sensation located in the middle of his upper chest. He says he feels lightheaded every day. He denies nausea, vomiting, cough, syncope, numbnes, s tingling, or radiation of pain. Patient recently had a Holter monitor however the results are not available at this time. He has been placed on Cardizem 120 mg by mouth daily for palpitations. This morning he reports intermittent chest pain. He says that he has at least a 99% improvement in his chest pain. 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 Patient had successful PTCA/[place] placement in mid RCA. He previously had a stent in mid RCA that was stenosed. There is stent from a prior PTCA in the proximal LAD which is patent. Cardiology recommends DAPT for 1 year minimum on interrupted, optimal medical therapy, and aggressive risk factor modification. Continue telemetry overnight Cardiology on board Possible discharge tomorrow pending no complications Pain medication as needed Monitor labs Qualifiers: Chest pain type: unspecified Qualified Code(s): R07.9 - Chest pain, unspecified (2) Hyperlipidemia Current Visit: Yes Status: Chronic Assessment and plan: Chronic. Continue medications. Qualifiers: Hyperlipidemia type: unspecified Qualified Code(s): E78.5 - Hyperlipidemia , unspecified (3) GERD (gastroesophageal reflux disease) Current Visit: Yes Status: Chronic Assessment and plan: Chronic. Continue home medications. Qualifiers: Esophagitis presence: esophagitis presence not specified Qualified Code(s) : K21.9 - Gastro-esophageal reflux disease without esophagitis (4) Intermittent palpitations Current Visit: No Status: Acute Assessment and plan: Patient had 24-hour telemetry that was negative for tachycardia or A. fib no SVT no ventricular arrhythmias. He did have sinus rhythm with PACs. Echocardiogram was unremarkable, LVEF 65%. Patient had prior Holter monitor that showed frequent PACs with 30 runs of SVT, longest being 17 beats. Continue beta elli and Cardizem CD 120 mg by mouth daily was added to regimen (5) Polycythemia Current Visit: No Status: Chronic Assessment and plan: Likely secondary to obstructive sleep apnea. (6) CAD (coronary artery disease) Current Visit: Yes Status: Chronic Assessment and plan: Patient had PCI proximal LAD and mid RCA in May,. He has been on aspirin, Plavix, beta elli. Nitrates were added. PCTA today, as well. Stenosed stent to mid RCA replaced with AUGUSTA. LAD stent remains patent. Plan as above Qualifiers: Coronary Disease-Associated Artery/Lesion type: [place] artery [place] vs. transplanted heart: [place] heart Associated angina: without angina Qualified Code(s): I25.10 - Atherosclerotic heart disease of [place] coronary artery without angina pectoris (7) DVT prophylaxis Current Visit: Yes Status: Acute Assessment and plan: Heparin subcutaneous daily. - Time Spent With Patient less than 15 minutes - Subjective Interval history: Patient was admitted to the emergency department for chest pain. His recent LHC with stents and proximal LAD and mid RCA in May,. He has been on aspirin, Plavix, beta elli. Nitrate was added. Patient been having palpitations. He had an event monitor that showed normal sinus rhythm with PACs. Prior Holter showed some runs of SVT, the longest being 17 beats. He also has an event monitor that he wore for 2 weeks and information has not been uploaded yet and is not available. Cardizem CD 120 mg by mouth daily has been added to his regimen. Patient was seen by cardiology yesterday and discussed that if patient continued to have chest pain overnight he could have an LHC this morning. Patient states that he had 99% improvement in his chest pain, however, he was still having some intermittent heaviness in his left chest this morning. LHC today. After procedure he was moved to [facility] 3 - Constitutional Vitals: Temp Pulse Resp BP Pulse Ox 97.5 F L 71 18 126/84 96 09/14/16 15:08 09/14/16 17:50 09/14/16 17:30 09/14/16 17:50 09/14/16 17:50 General appearance: Present: cooperative, A&O X 3, pleasant, no acute distress, obese, answers questions appropriately - Head Head exam: Present: normal inspection - Eye Eye exam: Present: normal appearance, conjuntiva pink - ENT ENT exam: Present: mucous membranes moist, normal exam, normal external ear exam - Respiratory Respiratory exam: Present: CTAB. Absent: decreased breath sounds, rales, rhonchi, stridor, wheezes - Cardiovascular Cardiovascular exam: Present: +S1, +S2. Absent: diastolic murmur, RRR, systolic murmur - GI/Abdominal GI/Abdominal exam: Present: normal bowel sounds. Absent: distended, hepatomegaly, mass, tenderness - Extremities Exam Extremities exam: Present: normal inspection, warm, radial pulses palpable and symetrical. Absent: pedal edema, tenderness - Neurological Exam Neurological exam: Present: alert, oriented X3, no focal deficits, strengths equal and symetr throughout. Absent: facial droop, speech deficit Internal Medicine: Result - Labs CBC & Chem 7: 09/14/16 04:49 09/14/16 04:49 Labs: Short CBC 09/14/16 Range/Units 04:49 WBC 11.9 H (4.3-11.1) K/mcL Hgb 16.5 (12.9-16.9) g/dL Hct 48.2 (37.5-50.1) % Plt Count 154 (140-400) K/mcL Neutrophils # 5.1 (1.6-8.9) K/mcL BMP 09/14/16 04:49 Sodium 140 Potassium 4.2 Chloride 106 Carbon Dioxide 30 H BUN 16 Creatinine 1.15 Glucose 91 Calcium 8.8 - ABG Interpretation ABG results: PT/INR, D-dimer PT 13.6 Seconds (9.4-12.1) H 09/12/16 07:57 D-Dimer 236 ng/mLFEU (0-500) 09/12/16 07:57 Consult Discharge Plan - Plan Referrals: Terrence Murrell MD [Primary Care Provider] -
[2016-09-15] MEDS ORDERED: chlorproMAZINE 25 MG in 0.9 % Sodium Chloride 100 ML IVPB ONE (02:26)
[2016-09-15] MEDS: *HR* Heparin 5,000 UNIT/ML VIAL SQ SCH (05:56)
[2016-09-15 06:12] LABS: Basophils # 0.1 K/mcL (0.0-0.2); Basophils % 0.7 %; Eosinophils # 0.3 K/mcL (0.0-0.6); Eosinophils % 3.6 %; Hemoglobin 15.8 g/dL (12.9-16.9); Immature Granulocytes % 1.2 % (0-4); Lymphocytes # 2.4 K/mcL (0.6-4.6); Mean Corpuscular HGB Conc 34.3 g/dL (31.6-35.5); Mean Corpuscular Hemoglobin 29.6 pg (28.0-33.3); Mean Corpuscular Volume 86.1 fL (83.0-100.0); Mean Platelet Volume 10.3 fL (9.4-12.4); Monocytes % 11.1 %; Neutrophils # 5.3 K/mcL (1.6-8.9); Platelet Count 168 K/mcL (140-400); Red Blood Count 5.34 M/mcL (4.19-5.50); Red Cell Distribution Width 12.3 % (11.5-14.5); Segmented Neutrophils % 57.4 %
[2016-09-15 06:19] LABS: BUN/Creatinine Ratio 13 (6-26); Blood Urea Nitrogen 13 mg/dL (8-26); Calcium 8.3 mg/dL (8.6-10.8); Carbon Dioxide 21 mEq/L (19-29); Chloride 111 mEq/L (98-109); Glucose 105 mg/dL (70-99); Osmolality,Calculated 290 (280-300); Potassium 3.8 mEq/L (3.5-4.5); Sodium 140 mEq/L (136-145); eGFR For African Americans > 60 (> 60); eGFR For Non-African Americans > 60 (> 60)
[2016-09-15 07:13] VITALS: BP 125/83
--- NOTE | 2016-09-15 09:21 | Discharge Summary ---
Date of Encounter: 09/16/16 Time of Encounter: 09:18 - Discharge Diagnosis (1) Unstable angina Priority: Primary Status: Acute (2) Hyperlipidemia Priority: Secondary Status: Chronic Qualifiers: Hyperlipidemia type: unspecified Qualified Code(s): E78.5 - Hyperlipidemia , unspecified (3) Sleep apnea Priority: Secondary Status: Chronic Qualifiers: Sleep apnea type: unspecified type Qualified Code(s): G47.30 - Sleep apnea , unspecified (4) Hypertension Priority: Secondary Status: Chronic Qualifiers: Hypertension type: essential hypertension Qualified Code(s): I10 - Essential (primary) hypertension - Discharge Medications Prescriptions: Aspirin 81 mg PO DAILY #30 tab.chew Atorvastatin [Lipitor] 80 mg PO HS #60 tablet Diltiazem CD (24hr) [Cardizem CD] 120 mg PO DAILY #30 cap.er.24h Home Medications: Nitroglycerin 0.4 mg SL Q5MIN PRN #7 tab.subl 06/06/16 [Rx] Clopidogrel [Plavix] 75 mg PO DAILY 08/19/16 [History] Metoprolol [Lopressor] 25 mg PO BID #60 tablet 08/20/16 [Rx] Aspirin 81 mg PO DAILY #30 tab.chew 09/15/16 [Rx] Atorvastatin [Lipitor] 80 mg PO HS #60 tablet 09/15/16 [Rx] Diltiazem CD (24hr) [Cardizem CD] 120 mg PO DAILY #30 cap.er.24h 09/15/16 [Rx] Allergies/Adverse Reactions: Allergies No Known Allergies Allergy (Verified 09/12/16 09:29) Procedures/tests Complete & Pending: Procedures Performed prior 72 hours Category Date Time Status CL Cardiac Catheterization [CL] Routine Environmental Associate 09/14/16 09:46 Completed ECG 12 lead ECG [ECG] AM 0600 Y 09/13/16 06:00 Completed ECG 12 lead ECG [ECG] Stat Y 09/14/16 15:04 Ordered Date of admission: 09/12/16 09:22 Primary care physician: Terrence Murrell MD Consults: 09/13/16 08:17 Consult to Cardiology [CONS] Routine Comment: Consulting Provider: Cardiology Jaleesa Reason for Consult: here for CP and palpitations. seen last month- holter to be followed up per Andrea on 09/15. [facility] may with stents x2. Patient stating this pain is the same as in may Time Notified: 08:19 Call Completed: Yes 09/14/16 15:07 Consult to Cardiac Rehabilitation-Phase1 [CONS] Routine Comment: Reason for Consult: CAD s/p PCI Call Completed: Yes - Patient Status Disposition: Home, Self-Care Condition: Good Functional capacity at discharge: independent ambulation Overall status at discharge: patient is progressing back to baseline - Discharge Instructions Instructions: Diltiazem (By mouth), Aspirin (By mouth), Isosorbide Mononitrate (By mouth), Atorvastatin (By mouth), Chest Pain (DC), Left Heart Catheterization (DC), Coronary Intravascular Stent Placement (DC) Follow Up With: Terrence Murrell MD [Primary Care Provider] - 09/23/16 10:30 am Forms: ED Satisfaction Letter Additional Instructions: RISK FACTORS: STOP SMOKING: If you smoke, STOP. Smoking or tobacco use significantly increases your risk of heart disease because nicotine causes the arteries to narrow or constrict. It also causes fats to stick to the artery. Your chances of having a heart attack are greatly increased if you continue to smoke. For more information, call the education line for smoking cessation 5-767-MNKNVJM EAT A LOW FAT/CHOLESTEROL/SODIUM DIET: This diet may help reduce your chances of having a heart attack. LIFTING: Avoid lifting anything more than 10 pounds for 5-7 days Prior to straining, laughing, sneezing and/or coughing, apply manual pressure directly over insertion site. ACTIVITY: You may walk or climb stairs as tolerated You can resume sexual activity as tolerated In general, you are encouraged to engage in a minimum of 30 minutes or more of moderate intensity physical activity, such as brisk walking, daily or at least 3 -4 times weekly BATHING Do not submerge the site into water (bath tub, hot tub, swimming pool) for 1 week. This can be a source for infection into the blood stream. You may shower after 24 hours SITE CARE: After 24 hours, you may remove the dressing and leave the site open to air. Keep the site clean and dry. Clean gently and pat dry. You can expect bruising and tenderness that gradually resolve within a week or two. Return to work as instructed per your physician Resume driving as instructed per physician Keep all scheduled follow up appointments Resume medications as instructed IMPORTANT: If prescribed a Platelet Aggregation Inhibitor such as, Plavix, Brilinta or Effient: Duration of therapy is minimum one year These medications are often used in combination with Aspirin in prevention of future heart attacks Never discontinue unless consult with your Body Former STROKE (CVA) Risk factors for a stroke are: Age, cigarette smoking, diabetes, excessive alcohol consumption, family history, high blood pressure, overweight, physical inactivity, prior stroke, heart attack, diagnosis of carotid artery stenosis or other artery disease. Warning signs: Sudden numbness or weakness of the face, arm or leg; especially on one side of the body, sudden confusion, trouble speaking or understanding, sudden trouble seeing in one or both eyes, sudden trouble walking, dizziness, loss of balance or coordination, sudden severe headache with no cause. Call 911 or go to the Emergency Room. CONGESTIVE HEART FAILURE: If you have been diagnosed with Congestive Heart Failure (CHF) and your symptoms return, make an appointment with your physician Weigh yourself daily. Notify your physician if you have a weight gain of two or more pounds in one day or five or more pounds in one week. If you experience any difficulty breathing, please call 911 BLEEDING: Although the risk of bleeding is minimal, it can happen. If you have any bleeding from the site, apply firm pressure above the puncture site for 10-15 minutes. If the bleeding does not stop, continue manual pressure and call 911 Contact your physician if: You develop a fever greater than 101 degrees Fahrenheit Your site becomes reddened or has any drainage You have an increase in pain or burning at the site or if a large knot forms at the site. If you experience chest pain, shortness of breath, dizziness, or extreme tiredness, stop the activity and rest. Please notify your physicians office if you experience any of these symptoms and they are not relieved by rest please call 911!PLEASE TAKE ALL YOUR MEDICATIONS AND FOLLOW INSTRUCTIONS FOR YOUR HEART STENT. FOLLOW UP IN THE CARDIOLOGY CLINIC IN 1 WEEK AND WITH YOUR PRIMARY CARE DOCTOR . - Diet and Activity Activity: return to work once cleared by your PCP/specialist Diet: low fat, low cholesterol, low salt diet Interval History: patient denies any chest pain, shortness of breath or dizziness. he feels better compared to admission and is eager to go home. Hospital course: Mr. Gardner is a 61 year old male with past medical history of CAD, atrial fibrillation, and hypertension who presented with a chief complaint of chest pain. Patient describes his chest pain is similar to past anginal equivalents. Initially, he was started on long-acting nitrates with persistent chest pain. Therefore, he underwent [facility] 09/14 showing double vessel CAD and had successful PTCA/[place] in mid RCA. Previous stent in mid RCA with severe in stent restenosis intervened on. Stent placed from prior procedure in proximal LAD patent. Postprocedure, patient remained hemodynamically stable and asymptomatic. He will continue aspirin, Plavix, beta elli and statin. Imdur stopped. His playground monitor revealed episodes of PACs and PATs for which he was started on Cardizem. He was explained in detail his diagnosis, treatment options and prognosis. He verbalized understanding and agreed with the plan. PLAN: Follow-up in the cardiology clinic in 3-4 weeks. - Time Spent with Patient Total time spent providing and/or coordinating discharge services: - Constitutional Vitals: Temp Pulse Resp BP Pulse Ox 98.6 F 70 18 125/83 96 09/15/16 07:09 09/15/16 07:09 09/15/16 07:09 09/15/16 07:09 09/15/16 07:09 General appearance: Present: cooperative, A&O X 3, pleasant, no acute distress, obese, answers questions appropriately - Neck Neck exam general surgery: Present: supple, trachea midline. Absent: lymphadenopathy - Respiratory Respiratory exam: Present: CTAB - Cardiovascular Cardiovascular exam: Present: RRR - GI/Abdominal GI/Abdominal exam: Present: normal bowel sounds, soft. Absent: distended, tenderness Additional comments: right groin area: no bruits, no bruises, no hematoma. normal pedal pulses - Extremities Exam Extremities exam: Absent: pedal edema - Back Exam Back exam: Absent: CVA tenderness (L), CVA tenderness (R) - Neurological Exam Neurological exam: Present: alert, oriented X3, no focal deficits, strengths equal and symetr throughout. Absent: facial droop, speech deficit
[2016-09-15] MEDS: Diltiazem CD (24hr) 120 MG CAPSULE PO SCH (09:33)
[2016-09-15] MEDS: Isosorbide MONOnitrate (24 HR) 30 MG TAB.ER.24H PO SCH (09:34)
[2016-09-15] MEDS: Pantoprazole 40 MG VIAL IVP SCH (09:34)
[2016-09-15] MEDS: Aspirin 81 MG TAB.CHEW PO SCH (09:34)
--- NOTE | 2016-09-15 09:59 | Cardiology Progress Note ---
Date of Encounter: 09/15/16 Time of Encounter: 09:56 Assessment and Plan (1) CAD (coronary artery disease) Current Visit: Yes Status: Chronic S/P C yesterday revealed double vessel CAD. Successful PTCA/[place] in mid RCA. Previous stent in mid RCA with severe in stent restenosis intervened on. Stent placed from prior procedure in proximal LAD patent. Pt denies chest pain this AM. Denies any acute complaints. DAPT (ASA and Plavix) uninterrupted x 1 year. Pt verbalizes understanding. Continue BB, statin. Right femoral access site healing well. No bleeding, hematoma or ecchymosis noted. Labs and vitals stable. Cardiology signing off. Reconsult PRN. Follow-up as outpt in 3-4 weeks Qualifiers: Coronary Disease-Associated Artery/Lesion type: [place] artery [place] vs. transplanted heart: [place] heart Associated angina: without angina Qualified Code(s): I25.10 - Atherosclerotic heart disease of [place] coronary artery without angina pectoris (2) SVT (supraventricular tachycardia) Current Visit: Yes Status: Resolved 24 hr tele reviewed with avg HR 67, SR with PACs, no afib, no svt, no ventricualr arrhythmias. Recent echo showed preserved 65%, no significant valvular dysfunction. Previous Holter showed frequent PACs with 30 episodes of SVT with longest being 17 beats. Has outpatient pending evaluation by EP. Recently had 2 week event monitor--results not yet uploaded. Continue BB. Added Cardizem CD 120mg daily. Discussion w patient/family: The assessment and plan as outlined above was discussed with the patient and/or family members who expressed understanding and agreement. All questions were answered. Thank you for involving us in the care of your patient. Please call with any questions. I will discuss all the above with Dr. Carlos Mendez and make changes as necessary. Subjective Principal diagnosis: CAD s/p PCI Interval history: C yesterday revealed double vessel CAD. Successful PTCA/[place] in mid RCA. Previous stent in mid RCA with severe in stent restenosis intervened on. Stent placed from prior procedure in proximal LAD patent. Pt denies chest pain this AM. Denies any acute complaints. Objective Vital Signs, Last 4 Hours Temp Pulse Resp BP Pulse Ox 09/15/16 09:27 80 94 09/15/16 07:09 98.6 F 70 18 125/83 96 Vital Signs Temp Pulse Pulse Resp BP Pulse Ox 09/15/16 09:27 80 94 09/15/16 07:09 98.6 F 70 18 125/83 96 09/15/16 03:18 98.9 F 75 16 118/66 96 09/14/16 23:45 97.9 F 62 16 131/76 96 09/14/16 20:15 97.9 F 71 115/69 09/14/16 19:49 71 17 142/90 98 09/14/16 19:30 74 142/90 09/14/16 19:00 67 118/70 09/14/16 18:17 65 66 110/75 97 09/14/16 17:50 63 71 126/84 96 09/14/16 17:45 64 64 135/81 97 09/14/16 17:40 63 63 129/69 09/14/16 17:35 59 59 118/82 09/14/16 17:30 66 59 18 97/75 97 09/14/16 17:25 66 66 18 109/90 09/14/16 17:20 67 56 18 107/81 09/14/16 17:15 59 56 16 118/70 97 09/14/16 16:20 55 56 108/75 96 09/14/16 15:49 59 59 108/71 09/14/16 15:31 62 62 107/79 09/14/16 15:15 62 62 123/74 09/14/16 15:08 97.5 F L 64 16 127/77 98 09/14/16 15:07 63 63 127/77 09/14/16 11:48 97.5 F L 64 14 135/73 91 Intake and Output 09/14/16 09/15/16 09/15/16 23:59 07:59 15:59 Intake Total 1040 / 1040 1000 / 1000 720 / 720 Output Total 1110 / 1110 450 / 450 850 / 850 Balance -70 / -70 550 / 550 -130 / -130 Intake: Oral 1040 / 1040 1000 / 1000 720 / 720 Output: Urine 1110 / 1110 450 / 450 850 / 850 Other: Meal Dinner Breakfast Percent of Meal Consumed 100% 100% General: Conversant, No Apparent Distress HEENT: Atraumatic, Normocephaly, Mucus Membranes Moist Neck: No JVD, Normal carotid pulses Cardiac: Reg Rate and Rhythm, Normal S1 and S2, No Murmur Lungs: Normal Breath Sounds, No Wheeze, Rales, Rhonchi Neuro: Alert and responsive, No focal deficits noted Abdomen: Soft, Non-Tender Skin: Other (right femoral access site healing well. No bleeding, hematoma or ecchymosis noted.) Musculoskeletal: No Chest Wall Tenderness Extremities: No Clubbing, No Cyanosis, No Edema, Normal Pulses Results 09/15/16 05:39 09/15/16 05:39 Lab Results 09/15/16 09/15/16 05:39 05:39 WBC 9.2 Hgb 15.8 Hct 46.0 Plt Count 168 Sodium 140 Potassium 3.8 Chloride 111 H Carbon Dioxide 21 BUN 13 Creatinine 0.99 Glucose 105 H Calcium 8.3 L Short CBC 09/15/16 Range/Units 05:39 WBC 9.2 (4.3-11.1) K/mcL Hgb 15.8 (12.9-16.9) g/dL Hct 46.0 (37.5-50.1) % Plt Count 168 (140-400) K/mcL Neutrophils # 5.3 (1.6-8.9) K/mcL BMP 09/15/16 Range/Units 05:39 Sodium 140 (136-145) mEq/L Potassium 3.8 (3.5-4.5) mEq/L Chloride 111 H (98-109) mEq/L Carbon Dioxide 21 (19-29) mEq/L BUN 13 (8-26) mg/dL Creatinine 0.99 (0.72-1.25) mg/dL Glucose 105 H (70-99) mg/dL Calcium 8.3 L (8.6-10.8) mg/dL Active Medications Acetaminophen (Tylenol) 650 mg PO Q6HR PRN PRN Reason: Fever Stop: 03/15/17 23:03 Last Admin: 09/13/16 23:10 Dose: 650 mg Aspirin (Aspirin) 81 mg PO DAILY [facility]AN Stop: 03/15/17 09:01 Last Admin: 09/15/16 09:34 Dose: 81 mg Atorvastatin Calcium (Lipitor) 80 mg PO HS DARSHAN Stop: 03/16/17 21:01 Last Admin: 09/14/16 20:18 Dose: 80 mg Clopidogrel Bisulfate (Plavix) 75 mg PO DAILY DARSHAN Stop: 03/15/17 09:01 Last Admin: 09/15/16 09:33 Dose: 75 mg Diltiazem HCl (Cardizem Cd) 120 mg PO DAILY [facility] Stop: 03/15/17 15:15 Last Admin: 09/15/16 09:33 Dose: 120 mg Heparin Sodium (Porcine) (Heparin) 5,000 unit SQ Q12HCO [facility] Stop: 03/14/17 18:01 Last Admin: 09/15/16 05:56 Dose: 5,000 unit Metoprolol Tartrate (Lopressor) 25 mg PO BID [facility] Stop: 03/14/17 21:01 Last Admin: 09/15/16 09:33 Dose: 25 mg Naloxone HCl (Narcan) 0.4 mg IVP Q2MIN PRN PRN Reason: Opioid Reversal Stop: 03/14/17 10:36 Nitroglycerin (Nitroglycerin) 0.4 mg SL Q5MIN PRN PRN Reason: Chest Pain Stop: 03/14/17 10:48 Last Admin: 09/12/16 17:49 Dose: 0.4 mg Ondansetron HCl (Zofran Odt) 4 mg SL Q8HR PRN PRN Reason: Nausea And Vomiting Stop: 03/14/17 10:36 Pantoprazole Sodium (Protonix) 40 mg IVP DAILY [facility] Stop: 03/15/17 11:31 Last Admin: 09/15/16 09:34 Dose: 40 mg - Imaging and Cardiology Cardiac cath: report reviewed - EKG Interpretation EKG results cardiology: other (24 hour tele AVG HR 68, SR with frequent PACs) Consult Discharge Plan - Plan Additional Instructions: RISK FACTORS: STOP SMOKING: If you smoke, STOP. Smoking or tobacco use significantly increases your risk of heart disease because nicotine causes the arteries to narrow or constrict. It also causes fats to stick to the artery. Your chances of having a heart attack are greatly increased if you continue to smoke. For more information, call the education line for smoking cessation 8-685-HAOWTZQ EAT A LOW FAT/CHOLESTEROL/SODIUM DIET: This diet may help reduce your chances of having a heart attack. LIFTING: Avoid lifting anything more than 10 pounds for 5-7 days Prior to straining, laughing, sneezing and/or coughing, apply manual pressure directly over insertion site. ACTIVITY: You may walk or climb stairs as tolerated You can resume sexual activity as tolerated In general, you are encouraged to engage in a minimum of 30 minutes or more of moderate intensity physical activity, such as brisk walking, daily or at least 3 -4 times weekly BATHING Do not submerge the site into water (bath tub, hot tub, swimming pool) for 1 week. This can be a source for infection into the blood stream. You may shower after 24 hours SITE CARE: After 24 hours, you may remove the dressing and leave the site open to air. Keep the site clean and dry. Clean gently and pat dry. You can expect bruising and tenderness that gradually resolve within a week or two. Return to work as instructed per your physician Resume driving as instructed per physician Keep all scheduled follow up appointments Resume medications as instructed IMPORTANT: If prescribed a Platelet Aggregation Inhibitor such as, Plavix, Brilinta or Effient: Duration of therapy is minimum one year These medications are often used in combination with Aspirin in prevention of future heart attacks Never discontinue unless consult with your Nutrition Services Aide STROKE (CVA) Risk factors for a stroke are: Age, cigarette smoking, diabetes, excessive alcohol consumption, family history, high blood pressure, overweight, physical inactivity, prior stroke, heart attack, diagnosis of carotid artery stenosis or other artery disease. Warning signs: Sudden numbness or weakness of the face, arm or leg; especially on one side of the body, sudden confusion, trouble speaking or understanding, sudden trouble seeing in one or both eyes, sudden trouble walking, dizziness, loss of balance or coordination, sudden severe headache with no cause. Call 911 or go to the Emergency Room. CONGESTIVE HEART FAILURE: If you have been diagnosed with Congestive Heart Failure (CHF) and your symptoms return, make an appointment with your physician Weigh yourself daily. Notify your physician if you have a weight gain of two or more pounds in one day or five or more pounds in one week. If you experience any difficulty breathing, please call 911 BLEEDING: Although the risk of bleeding is minimal, it can happen. If you have any bleeding from the site, apply firm pressure above the puncture site for 10-15 minutes. If the bleeding does not stop, continue manual pressure and call 911 Contact your physician if: You develop a fever greater than 101 degrees Fahrenheit Your site becomes reddened or has any drainage You have an increase in pain or burning at the site or if a large knot forms at the site. If you experience chest pain, shortness of breath, dizziness, or extreme tiredness, stop the activity and rest. Please notify your physicians office if you experience any of these symptoms and they are not relieved by rest please call 911!PLEASE TAKE ALL YOUR MEDICATIONS AND FOLLOW INSTRUCTIONS FOR YOUR HEART STENT. FOLLOW UP IN THE CARDIOLOGY CLINIC IN 1 WEEK AND WITH YOUR PRIMARY CARE DOCTOR . Referrals: Terrence Murrell MD [Primary Care Provider] - 09/23/16 10:30 am Prescriptions: Aspirin 81 mg PO DAILY #30 tab.chew Atorvastatin [Lipitor] 80 mg PO HS #60 tablet Diltiazem CD (24hr) [Cardizem CD] 120 mg PO DAILY #30 cap.er.24h Isosorbide MONOnitrate (24 HR) [Imdur] 30 mg PO DAILY #30 tab.er.24h
== END 2016-09-15 11:50 | disposition home or self-care (01) ==
LOC: EMEROO 07:19 → 3BNU 07:19 → SUATTDRO 09:22 → 3BNU 09:41 → 2NNU 09-14 14:23
PROVIDERS: ADMIT Internal Medicine Endocrinology, Diabetes & Metabolism; ATTEND Internal Medicine

== ENCOUNTER 2017-05-01 14:05 | Observation (INO) ==
[2017-05-01] MEDS ORDERED: Ondansetron 4 MG/2 ML VIAL IVP ONE (14:18)
--- NOTE | 2017-05-01 15:19 | Emergency Department Note ---
Disposition Clinical Impression: Esophageal obstruction due to food impaction Disposition: Transfer Other Condition: Good Referrals: Terrence Murrell MD [Primary Care Provider] - Forms: ED Satisfaction Letter, Work/School Release Time of Disposition: 15:30 General Adult HPI - General Chief complaint: ED General Medical Stated complaint: food bolus Time Seen by Provider: 05/01/17 14:12 Source: patient Limitations: no limitations Nursing Notes Reviewed: Yes Vital Signs Reviewed: Yes - History of Present Illness HPI Narrative: 61-year-old male presents with a piece of food stuck in his throat. States he was eating some roast beef this morning for breakfast and got it stuck in his throat. Patient has been unable to eat or drink anything ever since. His been having to spit his saliva out. He does take Plavix for history of A. fib. He has no other complaints other than some chest pain with this. He has never had an EGD for states she has had some problems with swallowing in the past. He has no other complaints at this time. No modifying factors. Pain Scale: 1 - Related Data Home Medications Medication Instructions Recorded Confirmed Clopidogrel [Plavix] 75 mg PO DAILY 08/19/16 09/12/16 Previous Rx's Medication Instructions Recorded Nitroglycerin 0.4 mg SL Q5MIN PRN #7 tab.subl 06/06/16 Metoprolol [Lopressor] 25 mg PO BID #60 tablet 08/20/16 Aspirin 81 mg PO DAILY #30 tab.chew 09/15/16 Atorvastatin [Lipitor] 80 mg PO HS #60 tablet 09/15/16 Diltiazem CD (24hr) [Cardizem CD] 120 mg PO DAILY #30 cap.er.24h 09/15/16 Allergies Allergy/AdvReac Type Severity Reaction Status Date / Time No Known Allergies Allergy Verified 05/01/17 14:10 Review of Systems: Gen.: No fevers or chills or new weakness Eyes: Denies double vision or any vision changes Ears: Denies any otalgia Pharynx: Denies sore throat CV: Denies chest pain. Denies palpitations Respiratory: Denies any cough or sputum production. No shortness of breath. GI: Denies any nausea, vomiting, diarrhea, constipation. Denies abdominal pain Neuro: Denies any headache. No problems with ambulation. No numbness. Skin: Denies any rashes or abrasions Psych: Denies any depression or suicidal or homicidal ideation Musculoskeletal: Denies any arthralgias or myalgias Past Medical History - Past Medical History Medical history: Reports: arthritis, atrial fibrillation, cancer, coronary artery disease, GERD, hyperlipidemia, hypertension, myocardial infarction Surgical history: Reports: angioplasty/stent (Proximal LAD and RCA; May 2016), other Psychiatric history: Reports: no psych history - Social History Smoking Status: Never smoker Smokeless Tobacco Status: No Alcohol use: Reports: none Drug use: Reports: none Physical Exam - General Limitations: no limitations General appearance: alert, in no apparent distress - Head Head exam: atraumatic, normocephalic - Eye Eye exam: Present: normal appearance - ENT ENT exam: normal exam - Neck Neck exam: Present: normal inspection, full ROM - Chest Chest inspection: Present: normal inspection, symmetric chest wall rise - Respiratory Respiratory exam: Present: normal lung sounds bilaterally. Absent: respiratory distress - Cardiovascular Cardiovascular exam: Present: normal rhythm, irregular rhythm - Abdominal Exam Abdominal exam: Present: soft, Non-Tender, normal bowel sounds. Absent: tenderness Course Vital Signs Temperature 97.7 F 05/01/17 14:05 Pulse Rate 68 05/01/17 14:05 Respiratory Rate 18 05/01/17 14:05 Blood Pressure 140/87 05/01/17 14:05 O2 Sat by Pulse Oximetry 97 05/01/17 14:05 Temperature 97.7 F 05/01/17 14:05 Pulse Rate 68 05/01/17 14:54 Respiratory Rate 16 05/01/17 14:54 Blood Pressure 126/87 05/01/17 14:54 O2 Sat by Pulse Oximetry 97 05/01/17 14:54 Oxygen Delivery Oxygen Delivery Room Air Medical Decision Making - [facility] Narrative Medical decision making narrative: Patient was given glucagon and Zofran with no relief in we tried a swallowing challenge but he failed. I spoke with Dr. Pham with surgery. We will need to do an EGD to have this fluid removed. - Medical Records Medical records reviewed: Yes I reviewed the patient's medical records.
--- NOTE | 2017-05-01 15:57 | General Surgery Consult Note ---
Date of Encounter: 05/01/17 Time of Encounter: 15:54 Assessment and Plan (1) Esophageal obstruction due to food impaction Current Visit: Yes Status: Acute I explained to the patient that we will proceed with an EGD today. He agrees to the above plan. History of Present Illness Consult date: 05/01/17 Requesting physician: Stephne Hough History of present illness: 61 year old male with a past medical history significant for CAD s/p Cath with stent ([place]) and a history of GERD states that over the past 6 weeks he has noticed some difficulty swallowing solid food. He states he has "always" had some difficulty swallowing. He was started on Prevacid for GERD but stopped taking it (they thought his chest discomfort could have been due to GERD prior to his CAD diagnosis). He denies any nausea or vomiting. He has never had any endoscopy procedures. Past Med Surg Social Fam HX - Past Medical History Medical history: arthritis, atrial fibrillation, cancer, coronary artery disease , GERD, hyperlipidemia, hypertension, myocardial infarction Psychiatric history: no psych history - Past Surgical History Surgical History: angioplasty/stent (Proximal LAD and RCA; May 2016), other - Social History Smoking Status: Never smoker Smokeless Tobacco Status: No Alcohol use: none Drug use: none - Family History Mother Family Member Ethnicity: Non- Living Status: Hx Family Cardiac Disorders: Yes (Angina) Hx Family Neurologic Disorders: Yes (Alzheimer's disease) Father Family Member Ethnicity: Non- Living Status: Hx Family Cardiac Disorders: Yes (self, mother) Hx Family Respiratory Disorders: No Hx Family Cancer: Yes (self,sister) Hx Family GI Disorders: No Hx Family Endocrine Disorder: No Hx Family Neuromuscular Disorders: No Hx Family Neurologic Disorders: Yes (mother) Hx Family HEENT Disorders: No Hx Family Autoimmune Disorders: No Sister Family Member Ethnicity: Non- Living Status: Hx Family Cancer: Yes (ovarian cancer) Brother Family Member Ethnicity: Non- Living Status: Hx Family Cardiac Disorders: Yes Medications and Allergies Nitroglycerin 0.4 mg SL Q5MIN PRN #7 tab.subl 06/06/16 [Rx] Clopidogrel [Plavix] 75 mg PO DAILY 08/19/16 [History] Metoprolol [Lopressor] 25 mg PO BID #60 tablet 08/20/16 [Rx] Aspirin 81 mg PO DAILY #30 tab.chew 09/15/16 [Rx] Atorvastatin [Lipitor] 80 mg PO HS #60 tablet 09/15/16 [Rx] Diltiazem CD (24hr) [Cardizem CD] 120 mg PO DAILY #30 cap.er.24h 09/15/16 [Rx] 3 Allergy/AdvReac Type Severity Reaction Status Date / Time No Known Allergies Allergy Verified 05/01/17 14:10 Review of Systems All systems PM: reviewed and no additional remarkable complaints except as stated All systems PM: A 10-system review of systems was performed and is negative for pertinent findings except as documented above in the HPI. General Surgery Exam Initial Vital Signs Temp Pulse Resp BP Pulse Ox 97.7 F 68 18 140/87 97 05/01/17 14:05 05/01/17 14:05 05/01/17 14:05 05/01/17 14:05 05/01/17 14:05 - General physical appearance well developed, well nourished, no distress - Eyes normal ocular movement - Respiratory normal expansion, normal respiratory effort, clear to auscultation - Cardiovascular Cardiovascular exam: Present: RRR, no murmurs/rubs/gallops - Abdomen Abdomen general surgery: Present: bowel sounds present, soft, non tender - Neurologic Present: CN 2-12 grossly intact Exam Initial Vital Signs Temp Pulse Resp BP Pulse Ox 97.7 F 68 18 140/87 97 05/01/17 14:05 05/01/17 14:05 05/01/17 14:05 05/01/17 14:05 05/01/17 14:05 Results - Labs All other labs normal. Consult Discharge Plan - Plan Referrals: Terrence Murrell MD [Primary Care Provider] -
[2017-05-01] MEDS ORDERED: *HR* FentaNYL (PF) 100 MCG/2 ML VIAL ONE (16:25)
[2017-05-01] MEDS ORDERED: *HR* Midazolam HCl 5 MG/5 ML VIAL IVP ONE (16:25)
[2017-05-01] MEDS ORDERED: *HR* FentaNYL (PF) 100 MCG/2 ML VIAL IVP ONE (16:46)
[2017-05-01] MEDS ORDERED: *HR* Promethazine 25 MG/ML VIAL IVP ONE (16:46)
[2017-05-01] MEDS ORDERED: Tetracaine/Benzocaine/Butamben 200MG/SPRAY (100SPY/BOT) MM ONE (16:46)
[2017-05-01] MEDS ORDERED: Simethicone 40 MG/0.6 ML MLS IR ONE (16:46)
--- NOTE | 2017-05-01 16:46 | Pre-Sedation Evaluation ---
Pre-sedation evaluation - Pre-sedation checklist Procedure: Heart cath Recent Vitals: Last Vital Signs Temp 97.7 F 05/01/17 14:05 Pulse 68 05/01/17 14:54 Resp 16 05/01/17 16:20 BP 144/89 05/01/17 16:20 Pulse Ox 97 05/01/17 14:54 H&P (including ROS) documented in medical record: Yes Previous reaction to sedatives/anesthetics: No Dietary Status: NPO after Midnight Airway Assessment: Patient can open mouth completely, TMJ function normal Dentition: full dentition Possible difficult airway: No ASA Classification *see protocol: CLASS III-Severe systemic disease Plan of Care: Pt appropriate candidate for procedure/moderate/conscious sedation
[2017-05-01] MEDS ORDERED: 0.9 % Sodium Chloride 1,000 ML IVC SCH (17:00)
[2017-05-01] MEDS: *HR* Midazolam HCl 5 MG/5 ML VIAL IVP ONE ×3 (17:00→17:05)
[2017-05-01] MEDS ORDERED: *HR* Propofol 200 MG/20 ML VIAL IVP ONE (17:42)
[2017-05-01] MEDS ORDERED: Lidocaine -MPF 2% 2 ML VIAL ONE (17:42)
[2017-05-01] MEDS ORDERED: *HR* Succinylcholine 200 MG/10 ML VIAL IVP ONE (17:42)
[2017-05-01] MEDS ORDERED: Dexamethasone 4 MG/ML VIAL ONE (17:51)
[2017-05-01] MEDS ORDERED: Ondansetron 4 MG/2 ML VIAL ONE (17:51)
[2017-05-01] MEDS ORDERED: *HR* Phenylephrine 10 MG/ML VIAL ONE (17:56)
--- NOTE | 2017-05-01 18:01 | Anesthesia Evaluation PreOp ---
Date of Encounter: 05/01/17 Time of Encounter: 17:58 - Past History Planned Operation: food bolus Cardiac History: [place], HTN, Hyperlipidemia, Cardiac Stent (recent [place]; on ASA) Pulmonary History: Denies Any Significant HX CREPE MAKER History: Denies Any Significant HX Other Medical History: Denies Any Significant HX Anesthesia History: No Prior Anesthetic Complications, Past Anesthesia (cardiac cath; never under general anesthesia) Alcohol Use: none Drug use: none Medications and Allergies Nitroglycerin 0.4 mg SL Q5MIN PRN #7 tab.subl 06/06/16 [Rx] Clopidogrel [Plavix] 75 mg PO DAILY 08/19/16 [History] Metoprolol [Lopressor] 25 mg PO BID #60 tablet 08/20/16 [Rx] Aspirin 81 mg PO DAILY #30 tab.chew 09/15/16 [Rx] Atorvastatin [Lipitor] 80 mg PO HS #60 tablet 09/15/16 [Rx] Diltiazem CD (24hr) [Cardizem CD] 120 mg PO DAILY #30 cap.er.24h 09/15/16 [Rx] 3 Allergy/AdvReac Type Severity Reaction Status Date / Time No Known Allergies Allergy Verified 05/01/17 14:10 - Meds/Allergy Pre-op Review Medications Reviewed: Yes Allergies Reviewed: Yes Beta Blockers on Current Med List: Yes Anesthesia Results - Imaging EKG: report reviewed, image reviewed (SINUS RHYTHM WITH MARKED SINUS ARRHYTHMIA PACs NONSPECIFIC ST \T\ T-WAVE ABNORMALITY) Additional studies: TTE: Indications: Palpitations Impressions: Sinus bradycardia with frequent PACs. Normal LV systolic function, LVEF 65%. Mild concentric left ventricular hypertrophy. Normal left ventricular diastolic function. Normal right ventricular size and function. No significant valvular dysfunction. No evidence of pulmonary hypertension. Cardiac cath: Indications: Unstable Angina Impressions: Double vessel coronary artery disease. Patient had successful PTCA/Drug-Eluting Stent placement in the mid RCA. There is a previous stent in Mid RCA with severe in-stent stenosis that was intervened on. Stent placed from a prior procedure in the Proximal LAD is patent. Anesthesia Exam Last Vital Signs Temp 97.8 F 05/01/17 16:49 Pulse 81 05/01/17 16:49 Resp 18 05/01/17 16:49 BP 172/115 05/01/17 16:49 Pulse Ox 97 05/01/17 16:49 - HEENT Pupil (Motor): Pupils equal, EOMI Mallampati: III Teeth: Normal Oral Opening: Greater than 3 - CREPE MAKER LOC: Oriented CREPE MAKER Motor: Normal RUE, Normal LUE, Normal RLE, Normal LLE, Normal Face - Cardiac Rhythm: Regular Murmur: None - Pulmonary Breath Sounds: bilateral Clear Respiratory Effort: Symmetrical Anesthesia Assess/Plan ASA Score: 3 (Recent [place]A, HTN, Hx [place]) Modified Tucker Scale for Level of Consciousness: Cooperative, oriented, and tranquil Anesthetic Plan: General Monitoring Plan: Standard Monitors Recovery Plan: PACU
--- NOTE | 2017-05-01 19:01 | Anesthesia Evaluation Post Op ---
Date of Encounter: 05/01/17 Time of Encounter: 19:00 - Vital Signs Vital Signs: Last Vital Signs Temp 98.8 F 05/01/17 18:48 Pulse 80 05/01/17 18:48 Resp 16 05/01/17 18:48 BP 131/95 05/01/17 18:48 Pulse Ox 97 05/01/17 18:48 - Lungs Lungs: Clear Ascult./Percussion - Airway Airway: Non-obstructed - Cardiovascular Regular Rate - Mental Status Mental Status: Alert & Oriented, Answers Appropriately - Pain Pain Scale: 2 - Nausea Vomiting Nausea Vomiting: Not Present - Hydration Hydration: Ice chips - Discharge PostOp Status: Transfer Patient to floor
[2017-05-01 20:28] VITALS: BP 136/81
== END 2017-05-01 20:35 | disposition home or self-care (01) ==
LOC: 3BNU 14:05 → EMEROO 14:05 → 3NENU 16:20 → EMEROO 19:27 → 3NENU 19:30
PROVIDERS: ADMIT Surgery; ATTEND Surgery

== ENCOUNTER 2019-08-02 21:12 | Inpatient (IN) ==
[2019-08-02] MEDS ORDERED: *HR* Ticagrelor 90 MG TABLET PO ONE (21:18)
[2019-08-02] MEDS ORDERED: Aspirin 81 MG TAB.CHEW PO ONE (21:18)
[2019-08-02] MEDS ORDERED: *HR* Ticagrelor 90 MG TABLET ONE (21:20)
[2019-08-02] MEDS ORDERED: *HR* Heparin 5,000 UNIT/ML VIAL IVP ONE (21:20)
[2019-08-02] MEDS ORDERED: *HR* Heparin 5,000 UNIT/ML VIAL ONE (21:20)
[2019-08-02] MEDS ORDERED: 0.9 % Sodium Chloride 1,000 ML ONE ×2 (21:21→21:28)
[2019-08-02] MEDS: Aspirin 81 MG TAB.CHEW ONE (21:24)
[2019-08-02] MEDS ORDERED: Nitroglycerin 1,000 MCG/10 ML VIAL IV ONE (21:28)
[2019-08-02] MEDS ORDERED: ISOVUE-370 200 ML INFUS..BTL ONE ×2 (21:28→22:22)
[2019-08-02] MEDS ORDERED: Heparin 1,000 UNITS/500 mL 500 ML ONE (21:28)
[2019-08-02] MEDS ORDERED: *HR* Heparin 10,000 UNIT/10 ML VIAL ONE (21:28)
[2019-08-02] MEDS ORDERED: Heparin 25,000 UNIT/250 ML D5W 25,000 UNIT/250 ML IV.SOLN IVC SCH (21:30)
[2019-08-02 21:32] LABS: Mean Corpuscular HGB Conc 34.1 g/dL (31.6-35.5)
[2019-08-02 21:34] LABS: Hematocrit 54.8 % (37.5-50.1); Hemoglobin 18.7 g/dL (12.9-16.9); Mean Corpuscular Hemoglobin 30.6 pg (28.0-33.3); Mean Corpuscular Volume 89.5 fL (83.0-100.0); Mean Platelet Volume 10.2 fL (9.4-12.4); Platelet Count 216 K/mcL (140-400); Red Blood Count 6.12 M/mcL (4.19-5.50); Red Cell Distribution Width 12.9 % (11.5-14.5); White Blood Count 25.8 K/mcL (4.3-11.1)
[2019-08-02 21:36] LABS: Heparin anti-factor XA UFH < 0.04 IU/mL (0.30-0.70); INR 1.1
[2019-08-02] MEDS ORDERED: *HR* Midazolam HCl 2 MG/2 ML VIAL ONE (21:37)
[2019-08-02] MEDS ORDERED: *HR* FentaNYL (PF) 100 MCG/2 ML VIAL ONE (21:37)
[2019-08-02 21:39] LABS: Activated Partial Thrombo Time 31.1 Seconds (26.0-36.0)
[2019-08-02 21:53] LABS: BUN/Creatinine Ratio 15 (6-26); Blood Urea Nitrogen 17 mg/dL (8-23); Carbon Dioxide 20 mEq/L (23-29); Chloride 106 mEq/L (98-107); Glucose 168 mg/dL (70-105); Magnesium 1.9 mg/dL (1.6-2.6); Osmolality,Calculated 291 (280-300); Potassium 3.1 mEq/L (3.5-5.1); Sodium 138 mEq/L (136-145); eGFR For African Americans > 60 (> 60); eGFR For Non-African Americans > 60 (> 60)
[2019-08-02 21:54] LABS: Troponin I < 0.03 ng/mL (< 0.04)
[2019-08-02] MEDS ORDERED: Tirofiban 12.5 MG/250ML 12.5 MG/250 ML BAG ONE (22:05)
[2019-08-02 22:12] LABS: Basophils # 0.3 K/mcL (0.0-0.2); Eosinophils # 0.8 K/mcL (0.0-0.6); Lymphocytes # 15.2 K/mcL (0.6-4.6); Neutrophils # 9.3 K/mcL (1.6-8.9); Smudge Cells Present (Not Present)
[2019-08-02 22:13] LABS: Reactive Lymphocytes Present (Not Present)
[2019-08-02 22:14] LABS: Platelet Estimate Normal (Normal)
[2019-08-02] MEDS ORDERED: Tirofiban 12.5 MG/250ML 12.5 MG/250 ML BAG IVC SCH (22:45)
[2019-08-03 04:22] LABS: Basophils # 0.1 K/mcL (0.0-0.2); Basophils % 0.3 %; Eosinophils # 0.1 K/mcL (0.0-0.6); Eosinophils % 0.3 %; Hematocrit 52.2 % (37.5-50.1); Immature Granulocytes % 0.7 % (0-4); Lymphocytes % 28.3 %; Mean Corpuscular HGB Conc 34.5 g/dL (31.6-35.5); Mean Corpuscular Hemoglobin 29.8 pg (28.0-33.3); Mean Corpuscular Volume 86.4 fL (83.0-100.0); Mean Platelet Volume 10.3 fL (9.4-12.4); Monocytes % 5.6 %; Neutrophils # 11.5 K/mcL (1.6-8.9); Platelet Count 189 K/mcL (140-400); Red Blood Count 6.04 M/mcL (4.19-5.50); Red Cell Distribution Width 12.9 % (11.5-14.5); Segmented Neutrophils % 64.8 %; White Blood Count 17.8 K/mcL (4.3-11.1)
[2019-08-03 04:39] LABS: Platelet Estimate Normal (Normal); Reactive Lymphocytes Present (Not Present)
[2019-08-03 04:41] LABS: BUN/Creatinine Ratio 16 (6-26); Blood Urea Nitrogen 14 mg/dL (8-23); Calcium 8.9 mg/dL (8.6-10.3); Carbon Dioxide 21 mEq/L (23-29); Chloride 108 mEq/L (98-107); Glucose 160 mg/dL (70-105); Osmolality,Calculated 286 (280-300); Potassium 3.8 mEq/L (3.5-5.1); Sodium 136 mEq/L (136-145); eGFR For African Americans > 60 (> 60); eGFR For Non-African Americans > 60 (> 60)
[2019-08-03] MEDS ORDERED: Perflutren Lipid Microsphere 1.3 ML in 0.9 % Sodium Chloride 8.7 ML IVP ONE (07:39)
[2019-08-03] MEDS ORDERED: Aspirin 81 MG TAB.CHEW PO SCH (09:00)
[2019-08-03] MEDS ORDERED: *HR* Ticagrelor 90 MG TABLET PO SCH (09:00)
[2019-08-03] MEDS ORDERED: Nitroglycerin 0.4 MG TAB.SUBL SL PRN ×2 (12:16→12:47)
[2019-08-03] MEDS: lisinopriL 10 MG TABLET PO SCH (15:42)
[2019-08-03] MEDS: Sucralfate 1 GM TABLET PO SCH (15:42)
[2019-08-03] MEDS ORDERED: Sucralfate 1 GM TABLET PO SCH (16:30)
[2019-08-03] MEDS: *HR* Ticagrelor 90 MG TABLET PO SCH (22:43)
[2019-08-04] MEDS: Aspirin 81 MG TAB.CHEW PO SCH (07:48)
[2019-08-04] MEDS: *HR* Ticagrelor 90 MG TABLET PO SCH ×2 (07:48→19:59)
[2019-08-04] MEDS: lisinopriL 10 MG TABLET PO SCH (07:48)
[2019-08-04] MEDS: Sucralfate 1 GM TABLET PO SCH ×3 (07:49→16:41)
[2019-08-04] MEDS ORDERED: lisinopriL 10 MG TABLET PO SCH (09:00)
[2019-08-04 11:03] LABS: BUN/Creatinine Ratio 18 (6-26); Blood Urea Nitrogen 19 mg/dL (8-23); Calcium 9.5 mg/dL (8.6-10.3); Carbon Dioxide 24 mEq/L (23-29); Chloride 109 mEq/L (98-107); Glucose 100 mg/dL (70-105); Magnesium 2.1 mg/dL (1.6-2.6); Osmolality,Calculated 286 (280-300); Potassium 4.2 mEq/L (3.5-5.1); Sodium 137 mEq/L (136-145); eGFR For African Americans > 60 (> 60); eGFR For Non-African Americans > 60 (> 60)
[2019-08-04] MEDS: Isosorbide MONOnitrate (24 HR) 30 MG TAB.ER.24H PO SCH (15:37)
[2019-08-05 02:37] LABS: Hematocrit 50.1 % (37.5-50.1); Hemoglobin 16.8 g/dL (12.9-16.9); Mean Corpuscular HGB Conc 33.5 g/dL (31.6-35.5); Mean Corpuscular Hemoglobin 29.7 pg (28.0-33.3); Mean Corpuscular Volume 88.7 fL (83.0-100.0); Platelet Count 182 K/mcL (140-400); Red Blood Count 5.65 M/mcL (4.19-5.50); Red Cell Distribution Width 13.3 % (11.5-14.5); White Blood Count 17.9 K/mcL (4.3-11.1)
[2019-08-05 02:56] LABS: BUN/Creatinine Ratio 25 (6-26); Blood Urea Nitrogen 25 mg/dL (8-23); Carbon Dioxide 25 mEq/L (23-29); Chloride 109 mEq/L (98-107); Glucose 103 mg/dL (70-105); Osmolality,Calculated 291 (280-300); Potassium 3.7 mEq/L (3.5-5.1); Sodium 138 mEq/L (136-145); eGFR For African Americans > 60 (> 60); eGFR For Non-African Americans > 60 (> 60)
[2019-08-05 07:17] VITALS: BP 114/70
[2019-08-05] MEDS: Sucralfate 1 GM TABLET PO SCH ×2 (07:46→11:48)
[2019-08-05] MEDS: Aspirin 81 MG TAB.CHEW PO SCH (07:46)
[2019-08-05] MEDS: *HR* Ticagrelor 90 MG TABLET PO SCH (07:47)
[2019-08-05] MEDS ORDERED: lisinopriL 10 MG TABLET PO SCH (09:00)
[2019-08-05] MEDS: Isosorbide MONOnitrate (24 HR) 30 MG TAB.ER.24H PO SCH (11:48)
== END 2019-08-05 11:55 | disposition home or self-care (01) | DRG 247 ==
LOC: EMEROOARM 21:12 → ICNU 21:48 → 2NENU 08-03 17:24
PROVIDERS: ADMIT Internal Medicine Cardiovascular Disease; ATTEND Internal Medicine Cardiovascular Disease

== ENCOUNTER 2019-11-01 10:29 | Inpatient (IN) ==
[2019-11-01] MEDS ORDERED: Nitroglycerin 0.4 MG TAB.SUBL SL PRN ×2 (10:37→13:41)
[2019-11-01 10:52] LABS: Basophils % 0.5 %; Mean Platelet Volume 10.5 fL (9.4-12.4); Red Cell Distribution Width 13.2 % (11.5-14.5)
[2019-11-01 11:03] LABS: Basophils # 0.1 K/mcL (0.0-0.2); Eosinophils # 0.6 K/mcL (0.0-0.6); Eosinophils % 3.7 %; Hematocrit 54.4 % (37.5-50.1); Hemoglobin 18.8 g/dL (12.9-16.9); Immature Granulocytes % 0.4 % (0-4); Lymphocytes # 6.3 K/mcL (0.6-4.6); Lymphocytes % 42.4 %; Mean Corpuscular HGB Conc 34.6 g/dL (31.6-35.5); Mean Corpuscular Volume 89.6 fL (83.0-100.0); Monocytes # 0.8 K/mcL (0.0-1.3); Monocytes % 5.6 %; Platelet Count 164 K/mcL (140-400); Red Blood Count 6.07 M/mcL (4.19-5.50); Segmented Neutrophils % 47.4 %; White Blood Count 14.8 K/mcL (4.3-11.1)
[2019-11-01 11:14] LABS: BUN/Creatinine Ratio 15 (6-26); Blood Urea Nitrogen 16 mg/dL (8-23); Calcium 9.4 mg/dL (8.6-10.3); Carbon Dioxide 26 mEq/L (23-29); Chloride 106 mEq/L (98-107); Glucose 134 mg/dL (70-105); Osmolality,Calculated 291 (280-300); Potassium 4.3 mEq/L (3.5-5.1); Sodium 139 mEq/L (136-145); Troponin I < 0.03 ng/mL (< 0.04); eGFR For African Americans > 60 (> 60); eGFR For Non-African Americans > 60 (> 60)
[2019-11-01 11:32] LABS: Platelet Estimate Normal (Normal); Reactive Lymphocytes Present (Not Present)
[2019-11-01 12:24] LABS: INR 1.3; Prothrombin Time 14.3 Seconds (9.4-12.1)
[2019-11-01 12:40] LABS: Bilirubin,Urine Negative (Negative); Blood,Urine Negative (Negative); Clarity,Urine Clear (Clear); Color,Urine Light-Yellow (Yellow); Glucose,Urine (UA) Normal (Normal); Ketones,Urine Negative (Negative); Leukocyte Esterase,Urine Negative (Negative); Nitrite,Urine Negative (Negative); Protein,Urine Negative (Neg-Trace); Specific Gravity,Urine 1.013 (1.010-1.025); Urobilinogen,Urine Normal (Normal)
[2019-11-01] MEDS ORDERED: Acetaminophen 325 MG TABLET PO PRN (13:35)
[2019-11-01] MEDS ORDERED: Mag Hydrox/Al Hydrox/Simeth 30 ML UDC PO PRN (13:35)
[2019-11-01] MEDS ORDERED: Naloxone 0.4 MG/ML INJ IVP PRN (13:35)
[2019-11-01] MEDS ORDERED: Ondansetron ODT 4 MG TAB.RAPDIS SL PRN (13:35)
[2019-11-01] MEDS ORDERED: MOM Conc 10 ML UD.LIQ PO PRN (13:35)
[2019-11-01] MEDS ORDERED: *HR* Heparin 5,000 UNIT/ML VIAL IVP PRN ×2 (13:42)
[2019-11-01] MEDS ORDERED: *HR* Heparin 5,000 UNIT/ML VIAL IVP ONE (13:42)
[2019-11-01] MEDS ORDERED: 0.9 % Sodium Chloride 1,000 ML IVC SCH (13:45)
[2019-11-01] MEDS: Heparin 25,000 UNIT/250 ML D5W 25,000 UNIT/250 ML IV.SOLN IVC SCH (15:20)
[2019-11-01] MEDS ORDERED: Sucralfate 1 GM TABLET PO SCH (16:30)
[2019-11-01] MEDS: *HR* Ticagrelor 90 MG TABLET PO SCH (21:04)
[2019-11-02 04:16] LABS: Hemoglobin 16.9 g/dL (12.9-16.9); Mean Corpuscular HGB Conc 33.1 g/dL (31.6-35.5); Mean Corpuscular Hemoglobin 30.2 pg (28.0-33.3); Mean Corpuscular Volume 91.1 fL (83.0-100.0); Mean Platelet Volume 10.6 fL (9.4-12.4); Platelet Count 134 K/mcL (140-400); Red Cell Distribution Width 13.3 % (11.5-14.5); White Blood Count 16.2 K/mcL (4.3-11.1)
[2019-11-02 04:33] LABS: BUN/Creatinine Ratio 13 (6-26); Blood Urea Nitrogen 12 mg/dL (8-23); Calcium 8.6 mg/dL (8.6-10.3); Carbon Dioxide 25 mEq/L (23-29); Chloride 109 mEq/L (98-107); Chol/HDL Ratio 3.7 (0-4.9); Cholesterol 86 mg/dL (< 200); Glucose 87 mg/dL (70-105); HDL Cholesterol 23 mg/dL (40-59); LDL Cholesterol,Calculated 44 mg/dL (< 100); Osmolality,Calculated 287 (280-300); Potassium 3.7 mEq/L (3.5-5.1); Sodium 139 mEq/L (136-145); Triglycerides 95 mg/dL (< 150); eGFR For African Americans > 60 (> 60); eGFR For Non-African Americans > 60 (> 60)
[2019-11-02] MEDS ORDERED: Isosorbide MONOnitrate (24 HR) 30 MG TAB.ER.24H PO SCH (09:00)
[2019-11-02] MEDS: Aspirin 81 MG TAB.CHEW PO SCH (10:24)
[2019-11-02] MEDS: lisinopriL 5 MG TABLET PO SCH (10:24)
[2019-11-02] MEDS: *HR* Ticagrelor 90 MG TABLET PO SCH ×2 (10:24→19:47)
[2019-11-02] MEDS ORDERED: Nitroglycerin 1,000 MCG/10 ML VIAL IV ONE (14:03)
[2019-11-02] MEDS ORDERED: Heparin 1,000 UNITS/500 mL 500 ML ONE (14:03)
[2019-11-02] MEDS ORDERED: ISOVUE-370 200 ML INFUS..BTL ONE (14:03)
[2019-11-02] MEDS ORDERED: *HR* Heparin 10,000 UNIT/10 ML VIAL ONE (14:03)
[2019-11-02] MEDS ORDERED: 0.9 % Sodium Chloride 2,000 ML ONE (14:03)
[2019-11-02] MEDS ORDERED: *HR* Midazolam HCl 2 MG/2 ML VIAL ONE (14:51)
[2019-11-02] MEDS ORDERED: *HR* FentaNYL (PF) 100 MCG/2 ML VIAL ONE (14:52)
[2019-11-02] MEDS ORDERED: Tirofiban 12.5 MG/250ML 0 MG/0 ML BAG ONE (15:31)
[2019-11-02] MEDS ORDERED: *HR* Atropine Sulfate 1 MG/10 ML SYRINGE ONE (15:34)
[2019-11-02] MEDS: Ranolazine 500 MG TAB.ER.12H PO SCH (19:47)
[2019-11-03 03:46] LABS: Mean Platelet Volume 10.5 fL (9.4-12.4)
[2019-11-03 03:47] LABS: Basophils # 0.1 K/mcL (0.0-0.2); Basophils % 0.5 %; Eosinophils # 0.4 K/mcL (0.0-0.6); Eosinophils % 3.1 %; Hematocrit 53.5 % (37.5-50.1); Hemoglobin 17.6 g/dL (12.9-16.9); Immature Granulocytes % 0.4 % (0-4); Immature Platelets 6.5 % (1.1-6.1); Lymphocytes # 6.3 K/mcL (0.6-4.6); Lymphocytes % 45.1 %; Mean Corpuscular HGB Conc 32.9 g/dL (31.6-35.5); Mean Corpuscular Hemoglobin 29.9 pg (28.0-33.3); Mean Corpuscular Volume 90.8 fL (83.0-100.0); Monocytes # 0.8 K/mcL (0.0-1.3); Neutrophils # 6.3 K/mcL (1.6-8.9); Platelet Count 140 K/mcL (140-400); Red Blood Count 5.89 M/mcL (4.19-5.50); Red Cell Distribution Width 13.2 % (11.5-14.5); Segmented Neutrophils % 44.9 %
[2019-11-03 03:51] LABS: INR 1.3; Prothrombin Time 14.5 Seconds (9.4-12.1)
[2019-11-03 04:08] LABS: BUN/Creatinine Ratio 17 (6-26); Blood Urea Nitrogen 15 mg/dL (8-23); Calcium 8.4 mg/dL (8.6-10.3); Carbon Dioxide 23 mEq/L (23-29); Chloride 110 mEq/L (98-107); Glucose 90 mg/dL (70-105); Osmolality,Calculated 288 (280-300); Phosphorous 3.1 mg/dL (2.7-4.5); Potassium 3.9 mEq/L (3.5-5.1); Sodium 139 mEq/L (136-145); eGFR For African Americans > 60 (> 60); eGFR For Non-African Americans > 60 (> 60)
[2019-11-03 04:51] LABS: Platelet Estimate Normal (Normal); Reactive Lymphocytes Present (Not Present); Smudge Cells Present (Not Present)
[2019-11-03] MEDS: Heparin 25,000 UNIT/250 ML D5W 25,000 UNIT/250 ML IV.SOLN IVC SCH (07:18)
[2019-11-03] MEDS: *HR* Ticagrelor 90 MG TABLET PO SCH (07:58)
[2019-11-03] MEDS: lisinopriL 5 MG TABLET PO SCH (07:58)
[2019-11-03] MEDS: Ranolazine 500 MG TAB.ER.12H PO SCH (07:58)
[2019-11-03] MEDS: Aspirin 81 MG TAB.CHEW PO SCH (07:58)
[2019-11-03 11:20] VITALS: BP 144/72
[2019-11-03] MEDS ORDERED: Metoprolol XL (24 HR) Succ 25 MG TAB.ER.24H PO SCH (21:00)
[2019-11-04] MEDS ORDERED: lisinopriL 10 MG TABLET PO SCH (09:00)
== END 2019-11-03 13:33 | disposition home or self-care (01) | DRG 251 ==
LOC: 3BNU 10:29 → EMEROOARM 10:29 → SUATTDRO 13:26 → 3BNU 14:00 → SUATTDRO 11-02 10:44
PROVIDERS: ADMIT Internal Medicine; ATTEND Student in an Organized Health Care Education/Training Program

== ENCOUNTER 2020-04-09 21:20 | Observation (INO) ==
[2020-04-09 21:53] LABS: Basophils # 0.1 K/mcL (0.0-0.2); Basophils % 0.5 %; Eosinophils # 0.3 K/mcL (0.0-0.6); Eosinophils % 2.2 %; Hematocrit 49.2 % (37.5-50.1); Hemoglobin 16.6 g/dL (12.9-16.9); Immature Granulocytes % 0.3 % (0-4); Lymphocytes # 8.2 K/mcL (0.6-4.6); Lymphocytes % 55.2 %; Mean Corpuscular HGB Conc 33.7 g/dL (31.6-35.5); Mean Corpuscular Hemoglobin 29.4 pg (28.0-33.3); Mean Corpuscular Volume 87.2 fL (83.0-100.0); Mean Platelet Volume 10.5 fL (9.4-12.4); Monocytes # 0.9 K/mcL (0.0-1.3); Neutrophils # 5.3 K/mcL (1.6-8.9); Nucleated Red Blood Cells 0.3 /100 WBC (0); Platelet Count 141 K/mcL (140-400); Red Blood Count 5.64 M/mcL (4.19-5.50); Red Cell Distribution Width 12.9 % (11.5-14.5); Segmented Neutrophils % 35.8 %; White Blood Count 14.9 K/mcL (4.3-11.1)
[2020-04-09 22:17] LABS: BUN/Creatinine Ratio 15 (6-26); Blood Urea Nitrogen 15 mg/dL (8-23); Calcium 8.6 mg/dL (8.6-10.3); Carbon Dioxide 23 mEq/L (23-29); Chloride 109 mEq/L (98-107); Glucose 134 mg/dL (70-105); Osmolality,Calculated 293 (280-300); Potassium 3.4 mEq/L (3.5-5.1); Sodium 140 mEq/L (136-145); Troponin I < 0.03 ng/mL (< 0.04); eGFR For African Americans > 60 (> 60); eGFR For Non-African Americans > 60 (> 60)
[2020-04-09] MEDS ORDERED: GI Cocktail 40 ML EACH PO ONE (22:21)
[2020-04-09 22:23] LABS: INR 1.2; Prothrombin Time 13.8 Seconds (9.4-12.1)
[2020-04-09 22:26] LABS: Platelet Estimate Normal (Normal); Reactive Lymphocytes Present (Not Present)
[2020-04-10] MEDS ORDERED: Naloxone 0.4 MG/ML INJ IVP PRN (00:52)
[2020-04-10] MEDS ORDERED: Nitroglycerin 0.4 MG TAB.SUBL SL PRN (01:03)
[2020-04-10 02:44] LABS: Adenovirus Not Detected (Not Detect); Bordetella Pertussis Not Detected (Not Detect); Chlamydophila pneumoniae Not Detected (Not Detect); Coronavirus 229E Not Detected (Not Detect); Coronavirus HKU1 Not Detected (Not Detect); Coronavirus NL63 Not Detected (Not Detect); Coronavirus OC43 Not Detected (Not Detect); Human Metapneumovirus Not Detected (Not Detect); Human Rhinovirus/Enterovirus Not Detected (Not Detect); Influenza A Subtype 2009 H1 Not Detected (Not Detect); Influenza B Not Detected (Not Detect); Mycoplasma pneumoniae Not Detected (Not Detect); Parainfluenza Virus 1 Not Detected (Not Detect); Parainfluenza Virus 2 Not Detected (Not Detect); Parainfluenza Virus 3 Not Detected (Not Detect); Parainfluenza Virus 4 Not Detected (Not Detect); Respiratory Syncytial Virus Not Detected (Not Detect); SARS-CoV-2 Not Detected (Not Detect)
[2020-04-10 03:53] LABS: Hematocrit 49.6 % (37.5-50.1); Hemoglobin 16.4 g/dL (12.9-16.9); Mean Corpuscular HGB Conc 33.1 g/dL (31.6-35.5); Mean Corpuscular Volume 87.8 fL (83.0-100.0); Mean Platelet Volume 10.4 fL (9.4-12.4); Platelet Count 144 K/mcL (140-400); Red Blood Count 5.65 M/mcL (4.19-5.50); Red Cell Distribution Width 12.9 % (11.5-14.5); White Blood Count 15.2 K/mcL (4.3-11.1)
[2020-04-10 04:12] LABS: BUN/Creatinine Ratio 15 (6-26); Blood Urea Nitrogen 14 mg/dL (8-23); Calcium 8.5 mg/dL (8.6-10.3); Carbon Dioxide 25 mEq/L (23-29); Chloride 109 mEq/L (98-107); Glucose 94 mg/dL (70-105); Osmolality,Calculated 292 (280-300); Potassium 3.9 mEq/L (3.5-5.1); Sodium 141 mEq/L (136-145); eGFR For African Americans > 60 (> 60); eGFR For Non-African Americans > 60 (> 60)
[2020-04-10] MEDS ORDERED: Aspirin 81 MG TAB.CHEW PO SCH (09:00)
[2020-04-10] MEDS ORDERED: lisinopriL 20 MG TABLET PO SCH (09:00)
[2020-04-10] MEDS ORDERED: Isosorbide MONOnitrate (24 HR) 30 MG TAB.ER.24H PO SCH (09:00)
[2020-04-10] MEDS ORDERED: Isosorbide MONOnitrate (24 HR) 60 MG TAB.ER.24H PO SCH (11:45)
[2020-04-10 14:21] VITALS: BP 115/75
[2020-04-11] MEDS ORDERED: Isosorbide MONOnitrate (24 HR) 60 MG TAB.ER.24H PO SCH (09:00)
== END 2020-04-10 17:55 | disposition home or self-care (01) ==
LOC: 3BNU 21:20 → EMEROOARM 21:20 → 3BNU 04-10 00:33
PROVIDERS: ADMIT Internal Medicine; ATTEND Internal Medicine

== ENCOUNTER 2020-12-14 08:47 | Observation (INO) ==
[2020-12-14 09:07] LABS: Hematocrit 51.1 % (37.5-50.1); Hemoglobin 17.6 g/dL (12.9-16.9); Mean Corpuscular HGB Conc 34.4 g/dL (31.6-35.5); Mean Corpuscular Hemoglobin 30.3 pg (28.0-33.3); Mean Corpuscular Volume 88.1 fL (83.0-100.0); Mean Platelet Volume 10.4 fL (9.4-12.4); Nucleated Red Blood Cells 0.2 /100 WBC (0); Platelet Count 162 K/mcL (140-400); White Blood Count 18.2 K/mcL (4.3-11.1)
[2020-12-14 09:36] LABS: Lymphocytes # 11.7 K/mcL (0.6-4.6); Monocytes # 0.7 K/mcL (0.0-1.3); Neutrophils # 5.8 K/mcL (1.6-8.9); Platelet Estimate Normal (Normal)
[2020-12-14 09:50] LABS: BUN/Creatinine Ratio 11 (6-26); Blood Urea Nitrogen 15 mg/dL (8-23); Calcium 9.4 mg/dL (8.6-10.3); Carbon Dioxide 26 mEq/L (23-29); Chloride 106 mEq/L (98-107); Glucose 166 mg/dL (70-105); Osmolality,Calculated 291 (280-300); Potassium 4.1 mEq/L (3.5-5.1); Sodium 138 mEq/L (136-145); Troponin I < 0.03 ng/mL (< 0.04); eGFR For African Americans > 60 (> 60); eGFR For Non-African Americans 55 (> 60)
[2020-12-14] MEDS ORDERED: Naloxone 0.4 MG/ML INJ IVP PRN (11:13)
[2020-12-14] MEDS ORDERED: Acetaminophen 325 MG TABLET PO PRN (11:18)
[2020-12-14] MEDS ORDERED: Ondansetron 4 MG/2 ML VIAL IVP PRN (11:18)
[2020-12-14] MEDS ORDERED: Perflutren Lipid Microsphere 1.3 ML in 0.9 % Sodium Chloride 8.7 ML IVP PRN (11:22)
[2020-12-14] MEDS ORDERED: 0.9 % Sodium Chloride 1,000 ML IVC SCH (11:30)
[2020-12-14] MEDS: *HR* Heparin 5,000 UNIT/ML VIAL SQ SCH (16:34)
[2020-12-14] MEDS ORDERED: Nitroglycerin 0.4 MG TAB.SUBL SL PRN (23:12)
[2020-12-15 04:32] VITALS: PULSE 64
[2020-12-15 05:33] LABS: Basophils # 0.1 K/mcL (0.0-0.2); Basophils % 0.3 %; Eosinophils # 0.4 K/mcL (0.0-0.6); Hematocrit 50.9 % (37.5-50.1); Immature Granulocytes % 0.4 % (0-4); Lymphocytes # 9.5 K/mcL (0.6-4.6); Lymphocytes % 51.6 %; Mean Corpuscular HGB Conc 33.4 g/dL (31.6-35.5); Mean Corpuscular Hemoglobin 29.7 pg (28.0-33.3); Mean Platelet Volume 10.7 fL (9.4-12.4); Monocytes # 1.7 K/mcL (0.0-1.3); Monocytes % 9.2 %; Neutrophils # 6.7 K/mcL (1.6-8.9); Nucleated Red Blood Cells 0.2 /100 WBC (0); Platelet Count 132 K/mcL (140-400); Red Blood Count 5.72 M/mcL (4.19-5.50); Red Cell Distribution Width 13.1 % (11.5-14.5); Segmented Neutrophils % 36.5 %; White Blood Count 18.4 K/mcL (4.3-11.1)
[2020-12-15 05:51] LABS: BUN/Creatinine Ratio 16 (6-26); Blood Urea Nitrogen 18 mg/dL (8-23); Calcium 8.8 mg/dL (8.6-10.3); Carbon Dioxide 27 mEq/L (23-29); Chloride 108 mEq/L (98-107); Glucose 87 mg/dL (70-105); Osmolality,Calculated 293 (280-300); Sodium 141 mEq/L (136-145); eGFR For African Americans > 60 (> 60); eGFR For Non-African Americans > 60 (> 60)
[2020-12-15 06:01] LABS: Platelet Estimate Normal (Normal); Reactive Lymphocytes Present (Not Present); Smudge Cells Present (Not Present)
[2020-12-15] MEDS: *HR* Heparin 5,000 UNIT/ML VIAL SQ SCH (06:01)
[2020-12-15] MEDS ORDERED: carvediloL 6.25 MG TABLET PO SCH (08:00)
[2020-12-15] MEDS ORDERED: Aspirin Enteric Coated 81 MG Tablet PO SCH (09:00)
[2020-12-15] MEDS ORDERED: Isosorbide MONOnitrate (24 HR) 60 MG TAB.ER.24H PO SCH (09:00)
[2020-12-15 11:10] VITALS: BP 136/75; TEMP 97.6; O2SAT 96
[2020-12-15] MEDS ORDERED: lisinopriL 20 MG TABLET PO SCH (12:00)
[2020-12-15 13:35] LABS: Bilirubin,Urine Negative (Negative); Blood,Urine Negative (Negative); Clarity,Urine Clear (Clear); Color,Urine Light-Yellow (Yellow); Glucose,Urine (UA) Normal (Normal); Ketones,Urine Negative (Negative); Leukocyte Esterase,Urine Negative (Negative); Nitrite,Urine Negative (Negative); Protein,Urine Negative (Neg-Trace); Specific Gravity,Urine 1.016 (1.010-1.025); Urobilinogen,Urine Normal (Normal)
== END 2020-12-15 14:44 | disposition home or self-care (01) ==
LOC: 3BNU 08:47 → EMEROOARM 08:47 → SUATTDRO 10:50 → 3BNU 11:43
PROVIDERS: ADMIT Internal Medicine; ATTEND Internal Medicine